=== PATIENT | female | born 1935 | race Caucasian/White ===

== ENCOUNTER → 2016-08-20 | Outpatient (CLI) | payer MEDICARE, BC ==
[~2016-08-20] MED LIST: ASPI81 PO; BIOTCAP PO; CALA240T PO; CALC600T34 PO; GLUCTAB PO; JANU100T PO; METO50TA PO; REPA.5 PO; TAB-TAB PO; ZOCO40TA PO
[2016-08-20 09:58] LABS: ALKALINE PHOSPHATASE 54 U/L (45-117); ALT (GPT) 23 U/L (10-53); ANION GAP 10 MEQ/L (5-15); AST (GOT) 18 U/L (15-37); BICARBONATE 27.7 MEQ/L (21.0-32.0); BLOOD UREA NITROGEN 14 MG/DL (7-18); CHLORIDE 99 MEQ/L (98-107); GLOMERULAR FILTRATION RATE 65 ML/MIN (>89); GLUCOSE,FASTING 154 MG/DL (74-99); HDL CHOLESTEROL 55.2 MG/DL (40.0-60.0); LDL CHOLESTEROL 94 MG/DL (0-99); POTASSIUM 4.4 MEQ/L (3.5-5.1); SODIUM (NA) 137 MEQ/L (136-145); TOTAL BILIRUBIN ADULT 0.9 MG/DL (0.2-1.0)
[2016-08-20 10:22] LABS: MICRO ALBUMIN RANDOM URINE RAW 5.3 MG/L (0.0-30.0)
[2016-08-20 17:35] LABS: HEMOGLOBIN A1a 1.3 %; HEMOGLOBIN A1b 1.1 %; HEMOGLOBIN Ao 82.3 %; HEMOGLOBIN F 1.3 %; HEMOGLOBIN LA1C 2.4 %
== END ==
LOC: PLAB 07:10
PROVIDERS: ATTEND Family Medicine
DX: E11.9 Type 2 diabetes mellitus without complications (principal); I10 Essential (primary) hypertension; R53.81 Other malaise; E78.5 Hyperlipidemia, unspecified
CPT/HCPCS: 36415; 80053; 80061; 82043; 83036; 84443

== ENCOUNTER → 2017-02-17 | Outpatient (CLI) | payer MEDICARE, BC ==
[2017-02-17 09:03] LABS: BASOPHIL # 0.1 TH/MM3 (0-0.2); BASOPHIL % 1.3 % (0.0-2.0); EOSINOPHIL # 0.1 TH/MM3 (0-0.4); EOSINOPHIL % 2.5 % (0.0-4.0); HEMATOCRIT 40.9 % (35.0-46.0); HEMO FLAGS DIFF FINAL; LYMPH % 28.9 % (9.0-44.0); LYMPHOCYTE # 1.5 TH/MM3 (1.0-4.8); MEAN CELL VOLUME 99.4 FL (80.0-100.0); MEAN CORPUSCULAR HEMOGLOBIN 33.6 PG (27.0-34.0); MEAN CORPUSCULAR HGB CONC 33.8 % (32.0-36.0); MONO % 10.4 % (0.0-8.0); NEUT % 56.9 % (16.0-70.0); PLATELET COUNT 192 TH/MM3 (150-450); RED BLOOD COUNT 4.12 MIL/MM3 (4.00-5.30); RED CELL DISTRIBUTION WIDTH 12.8 % (11.6-17.2); WHITE BLOOD COUNT 5.3 TH/MM3 (4.0-11.0)
[2017-02-17 09:37] LABS: ANION GAP 8 MEQ/L (5-15); AST (GOT) 32 U/L (15-37); BICARBONATE 24.8 MEQ/L (21.0-32.0); BLOOD UREA NITROGEN 13 MG/DL (7-18); CHLORIDE 102 MEQ/L (98-107); GLOMERULAR FILTRATION RATE 70 ML/MIN (>89); GLUCOSE,FASTING 190 MG/DL (74-99); POTASSIUM 3.9 MEQ/L (3.5-5.1); SODIUM (NA) 135 MEQ/L (136-145)
[2017-02-17 09:38] LABS: ALT (GPT) 37 U/L (10-53)
[2017-02-17 09:48] LABS: ALKALINE PHOSPHATASE 51 U/L (45-117); HDL CHOLESTEROL 63.6 MG/DL (40.0-60.0); LDL CHOLESTEROL 94 MG/DL (0-99); TOTAL BILIRUBIN ADULT 1.3 MG/DL (0.2-1.0)
[2017-02-17 18:01] LABS: HEMOGLOBIN A1a 1.2 %; HEMOGLOBIN A1b 1.2 %; HEMOGLOBIN Ao 81.8 %; HEMOGLOBIN F 1.4 %; HEMOGLOBIN LA1C 2.5 %; HEMOGLOBIN P3 4.1 %
== END ==
LOC: PLAB 06:47
PROVIDERS: ATTEND Family Medicine
DX: E78.5 Hyperlipidemia, unspecified (principal); E11.9 Type 2 diabetes mellitus without complications; R53.83 Other fatigue
CPT/HCPCS: 36415; 80053; 80061; 83036; 84443; 85025

== ENCOUNTER → 2017-08-22 | Outpatient (CLI) | payer MEDICARE, BC ==
[2017-08-22 10:06] LABS: AUTOMATED NEUTROPHIL # 3.4 TH/MM3 (1.8-7.7); BASOPHIL # 0.1 TH/MM3 (0-0.2); BASOPHIL % 1.1 % (0.0-2.0); EOSINOPHIL # 0.2 TH/MM3 (0-0.4); EOSINOPHIL % 2.9 % (0.0-4.0); HEMATOCRIT 39.8 % (35.0-46.0); HEMOGLOBIN 13.8 GM/DL (11.6-15.3); LYMPH % 28.1 % (9.0-44.0); LYMPHOCYTE # 1.6 TH/MM3 (1.0-4.8); MEAN CELL VOLUME 97.6 FL (80.0-100.0); MEAN CORPUSCULAR HEMOGLOBIN 33.9 PG (27.0-34.0); MEAN CORPUSCULAR HGB CONC 34.7 % (32.0-36.0); MEAN PLATELET VOLUME 8.9 FL (7.0-11.0); MONO % 8.4 % (0.0-8.0); MONOCYTE # 0.5 TH/MM3 (0-0.9); NEUT % 59.5 % (16.0-70.0); PLATELET COUNT 227 TH/MM3 (150-450); RED BLOOD COUNT 4.08 MIL/MM3 (4.00-5.30); WHITE BLOOD COUNT 5.7 TH/MM3 (4.0-11.0)
[2017-08-22 10:27] LABS: ALBUMIN 3.7 GM/DL (3.4-5.0); ALT (GPT) 29 U/L (10-53); AST (GOT) 27 U/L (15-37); BICARBONATE 27.8 MEQ/L (21.0-32.0); BLOOD UREA NITROGEN 13 MG/DL (7-18); CALCIUM 9.2 MG/DL (8.5-10.1); CHLORIDE 102 MEQ/L (98-107); CHOLESTEROL 177 MG/DL (120-200); CREATININE 0.71 MG/DL (0.50-1.00); GLOMERULAR FILTRATION RATE 79 ML/MIN (>89); GLUCOSE,FASTING 195 MG/DL (74-99); SODIUM (NA) 137 MEQ/L (136-145)
[2017-08-22 10:36] LABS: ALKALINE PHOSPHATASE 53 U/L (45-117); CHOLESTEROL/ HDL RATIO 2.96 RATIO; HDL CHOLESTEROL 59.7 MG/DL (40.0-60.0); LDL CHOLESTEROL 98 MG/DL (0-99); TOTAL BILIRUBIN ADULT 0.8 MG/DL (0.2-1.0); TOTAL PROTEIN 7.5 GM/DL (6.4-8.2); TRIGLYCERIDES 98 MG/DL (42-150)
[2017-08-22 17:25] LABS: HEMOGLOBIN A1C 7.8 % (4.3-6.0)
== END ==
LOC: PLAB 06:54
PROVIDERS: ATTEND Family Medicine
DX: E78.5 Hyperlipidemia, unspecified (principal); E11.9 Type 2 diabetes mellitus without complications; R53.83 Other fatigue
CPT/HCPCS: 36415; 80053; 80061; 82043; 83036; 84443; 85025

== ENCOUNTER 2018-07-30 14:01 | Inpatient (IN) ==
[2018-07-30] MEDS ORDERED: Sod Chloride 0.9% Inj 1,000 ML IV.SIG ONE (14:24)
[2018-07-30 14:46] LABS: Clarity,Urine Cloudy (Clear); Color,Urine Yellow (Yellw/Straw); Glucose,Urine (UA) 100 mg/dL (Negative); Leukocyte Esterase,Urine Moderate (Negative); Nitrite,Urine Negative (Negative); PH,Urine 5.5 (5.0-8.5); Specific Gravity,Urine Greater/Equal 1.030 (1.002-1.035); Urobilinogen,Urine 0.2 mg/dL (Less than 2)
[2018-07-30 14:53] LABS: Bilirubin,Urine Negative (Negative); Ictotest,Urine Negative (Negative)
[2018-07-30 14:55] LABS: Squamous Epithelial Cell,Urine 0-5 /hpf (0-5); WBC,Urine Innumerable /hpf (0-5)
[2018-07-30 14:56] LABS: Bacteria,Urine Many /hpf
[2018-07-30 15:20] LABS: Baso # (Auto) 0.1 th/mm3 (0.0-0.2); Baso % (Auto) 0.3 % (0.0-2.0); Eos # (Auto) 0.1 th/mm3 (0.0-0.4); Eos % (Auto) 0.4 % (0.0-4.0); Hematocrit 35.6 % (35.0-46.0); Hemoglobin 12.2 gm/dL (11.6-15.3); Lymph # (Auto) 0.3 th/mm3 (1.0-4.8); Lymph % (Auto) 1.9 % (9.0-44.0); Mean Corpuscular HGB Conc 34.2 % (32.0-36.0); Mean Corpuscular Volume 96.3 fL (80.0-100.0); Mean Platelet Volume 10.3 fL (7.0-11.0); Mono # (Auto) 0.9 th/mm3 (0.0-0.9); Mono % (Auto) 5.1 % (0.0-8.0); Neut # (Auto) 15.5 th/mm3 (1.8-7.7); Neut % (Auto) 92.3 % (16.0-70.0); Platelet Count 96 th/mm3 (150-450); Red Cell Distribution Width 12.6 % (11.6-17.2); White Blood Count 16.9 th/mm3 (4.0-11.0)
[2018-07-30 15:54] LABS: Dohle Bodies Present; Platelet Morphology Normal (Normal); Toxic Granulation 1+
[2018-07-30 16:57] LABS: Chloride 95 meq/L (98-107); Sodium 128 meq/L (136-145)
[2018-07-30 17:01] LABS: Albumin 2.2 g/dL (3.4-5.0); Anion Gap 10 meq/L (5-15); Calcium 9.1 mg/dL (8.5-10.1); Carbon Dioxide 23.4 meq/L (21.0-32.0); Glucose,Random 291 mg/dL (74-106); Lipase 140 U/L (73-393)
[2018-07-30 17:02] LABS: Blood Urea Nitrogen 37 mg/dL (7-18)
[2018-07-30 17:04] LABS: Alanine Aminotransferase 28 U/L (10-53); Aspartate Aminotransferase 29 U/L (15-37); Glomerular Filtration Rate 33 mL/min (>89)
[2018-07-30 17:06] LABS: Total Protein 6.8 g/dL (6.4-8.2)
[2018-07-30 17:07] LABS: Alkaline Phosphatase 72 U/L (45-117)
--- NOTE | 2018-07-30 17:42 | CT ---
EXAM DATE: 07/30/2018 5:30 PM EST AGE/SEX: 83 years / Female INDICATIONS: Low back pain. Nausea, vomiting and diarrhea. CLINICAL DATA: This is the patient's initial encounter. Patient reports that signs and symptoms have been present for 4 - 6 days and indicates a pain score of 9/10. MEDICAL/SURGICAL HISTORY: Diabetes. Hypertension. Cardiovascular disease. Hysterectomy. RADIATION DOSE: 8.29 CTDI (mGy) COMPARISON: No prior exams available for comparison. TECHNIQUE: Multiple contiguous axial images were obtained through the abdomen. Images were obtained using multiple row detector helical technique. Using automated exposure control and adjustment of the mA and/or kV according to patient size, radiation dose was kept as low as reasonably achievable to o btain optimal diagnostic quality images. DICOM format image data is available electronically for rev iew and comparison. FINDINGS: Lower Lungs: Interstitial prominence which appears fibrotic is identified in the right lower lobe. Liver: The liver has a homogeneous density without space-occupying lesion. There is no dilation of th e biliary tree. Postcholecystectomy clips are noted. Spleen: Homogeneous density without enlargement. Pancreas: Unremarkable without mass or calcification. Kidneys: Left kidney is enlarged. There is [id number] hydronephrosis. Multiple small calculi identified within the collecting sys tem. Small calculi. A present in the proximal ureter. There is no significant ureteral distention. A thick walled cyst is identified off the lateral cortical margin of the left kidney. Wall is thicken ed and irregular in appearance. There is evidence of perinephric stranding Right kidney contains small nonobstructing calculi in the lower pole. There is no gross of hydronephr osis. Adrenal Glands: Unremarkable. Aorta: The aorta is heavily calcified. There is no evidence of aneurysmal enlargement. Bowel/Mesentery: Diverticula are noted throughout the descending and sigmoid colon. There are no act luc inflammatory changes. Intestinal gas pattern is otherwise unremarkable. There is no significant i leus. There are no intraperitoneal extraintestinal fluid collections or evidence of free air. Abdominal Wall: Intact. Retroperitoneum: No evidence of adenopathy in the retrocrural, para-aortic, or deep pelvic regions. Bladder: Contours are smooth. Reproductive Organs: Uterus has been surgically removed. No abnormal masses or calcifications seen. Inguinal: The inguinal region is unremarkable without evidence of adenopathy. Bony Structures: Unremarkable. CONCLUSION: 1. Small calculi are identified in the left renal collecting system and proximal ureter. There is mi ld hydronephrosis with perinephric stranding characteristic of obstructive uropathy. 2. Thick walled cyst off the lateral margin of mid left kidney. Cystic malignancy needs to be consid ered. 3. Uncomplicated colonic diverticulosis. 4. Fibrotic lung disease right lower lobe. 5. Status post hysterectomy and cholecystectomy. Electronically signed by: Suman Strauss MD Board Certified Radiologist 07/30/2018 5:40 PM EST
--- NOTE | 2018-07-30 18:07 | ED ---
HPI General Chief complaint: Nausea/Vomiting/Diarrhea Stated complaint: vomiting/diarrhea x 4 days/Hx diabetes/ Time Seen by Provider: 07/30/18 14:19 History of Present Illness HPI narrative: 83-year-old female here for evaluation of left lower back pain. Pain started one year ago, 4/10, left flank, no relation to movement, about 4days ago she started having nausea and vomiting and she is unable to hold any food down. She denies any fever chills or night sweats although she reports some burning urination. She says she did not eat for the last 2 days. No chest pain or shortness of breath. Related Data Home Medications Medication Instructions Recorded Confirmed metformin 500 mg PO BID 07/30/18 07/30/18 metoprolol tartrate 50 mg PO BID 07/30/18 07/30/18 repaglinide 1 mg PO TID 07/30/18 07/30/18 simvastatin 40 mg PO QPM 07/30/18 07/30/18 sitagliptin [Januvia] 100 mg PO DAILY 07/30/18 07/30/18 verapamil 240 mg PO QAM 07/30/18 07/30/18 Allergies Allergy/AdvReac Type Severity Reaction Status Date / Time penicillin G Allergy Severe Hives Verified 07/30/18 14:31 Review of Systems ROS: all other systems reviewed are negative [facility] Medical History Medical History Diabetes (Acute) Elevated cholesterol (Acute) H/O: hysterectomy (Acute) HTN (hypertension) (Acute) Surgical History Surgical History H/O cardiac catheterization (Acute) H/O knee surgery (Acute) Social History Social History Substance History: No History of Abuse Second Hand Smoke Exposure: No Smoking Status: Never smoker How Often Do You Have a Drink Containing Alcohol: Never Recent Travel in [facility] within the Last 8 Weeks: No Immunization History Tetanus Immunization: >5 Years Exam Narrative Exam Narrative: GENERAL: Alert oriented x3 no acute distress. SKIN: Focused skin assessment warm/dry. HEAD: Atraumatic. Normocephalic. EYES: Pupils equal and round. No scleral icterus. No injection or drainage. ENT: No nasal bleeding or discharge. Mucous membranes pink and moist. NECK: Trachea midline. No JVD. CARDIOVASCULAR: Regular rate and rhythm. No murmur appreciated. RESPIRATORY: No accessory muscle use. Clear to auscultation. Breath sounds equal bilaterally. GASTROINTESTINAL: Distended, soft, nonsurgical, non-tender, Hepatic and splenic margins not palpable. MUSCULOSKELETAL: No obvious deformities. No clubbing. No cyanosis. No edema. NEUROLOGICAL: Awake and alert. No obvious cranial nerve deficits. Motor grossly within normal limits. Normal speech. PSYCHIATRIC: Appropriate mood and affect; insight and judgment normal. Course Initial Documented Vital Signs Temperature 98.5 F 07/30/18 14:03 Pulse Rate 97 H 07/30/18 14:03 Respiratory Rate 18 07/30/18 14:03 Blood Pressure 102/55 L 07/30/18 14:03 Pulse Oximetry 97 07/30/18 14:03 Last Documented Vital Signs Temperature 98.3 F 08/01/18 03:30 Pulse Rate 135 H 08/01/18 03:30 Respiratory Rate 14 08/01/18 03:30 Blood Pressure 97/57 L 08/01/18 03:30 Pulse Oximetry 97 08/01/18 03:30 Medical Decision Making MDM Narrative Medical decision making narrative: 83 female here for left lower back pain. When she arrived at the ER she was tachycardic with heart rate at mid 100s, hypotensive, labs concerning for leukocytosis of 16.9,, her creatinine almost doubled since last, ER visit urinalysis positive for UTI, CAT scan shows multiple calculi with hydronephrosis and possibly malignant cystic mass. 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 Given patient age and comorbidities (diabetes and hypertension) and inability to hold any p.o. intake she will need to be admitted for further evaluation. Blood cultures drawn, Bolus of 2L of IV fluids were given and Rocephin was given initially since she has severe penicillin allergy, but given her clinical picture we may need to switch to a broader spectrum antibiotic. spoke with urologist wine consultant Dr. Sun and he [place] [facility] [place] for the left hydronephrosis. Medical Screen Exam Complete: Yes Emergency Medical Condition: Yes Lab Data Result diagrams: 08/01/18 06:37 07/30/18 16:40 Lab Results 07/30/18 07/30/18 07/30/18 Range/Units 14:30 14:45 14:45 CBC w Diff Slide review pending WBC 16.9 H (4.0-11.0) th/mm3 RBC 3.70 L (4.00-5.30) mil/mm3 Hgb 12.2 (11.6-15.3) gm/dL Hct 35.6 (35.0-46.0) % MCV 96.3 (80.0-100.0) fL MCH 33.0 (27.0-34.0) pg MCHC 34.2 (32.0-36.0) % RDW 12.6 (11.6-17.2) % Plt Count 96 L (150-450) th/mm3 MPV 10.3 (7.0-11.0) fL Prelim Diff (Auto) Neut % (Auto) 92.3 H (16.0-70.0) % Lymph % (Auto) 1.9 L (9.0-44.0) % Walker % (Auto) 5.1 (0.0-8.0) % Eos % (Auto) 0.4 (0.0-4.0) % Baso % (Auto) 0.3 (0.0-2.0) % Neut # (Auto) 15.5 H (1.8-7.7) th/mm3 Lymph # (Auto) 0.3 L (1.0-4.8) th/mm3 Walker # (Auto) 0.9 (0.0-0.9) th/mm3 Eos # (Auto) 0.1 (0.0-0.4) th/mm3 Baso # (Auto) 0.1 (0.0-0.2) th/mm3 WBC Differential . Diff Scan Auto diff confirmed Differential Comment . Toxic Granulation 1+ H (None) Dohle Bodies Present H (None) Platelet Estimate Low L (Normal) Platelet Morphology Normal (Normal) Sodium (136-145) meq/L Potassium (3.5-5.1) meq/L Chloride (98-107) meq/L Carbon Dioxide (21.0-32.0) meq/L Anion Gap (5-15) meq/L BUN (7-18) mg/dL Creatinine (0.50-1.00) mg/dL Estimated GFR (>89) mL/min POC Glucose (68-110) mg/dl Random Glucose (74-106) mg/dL Lactic Acid 1.9 (0.4-2.0) mmol/L Calcium (8.5-10.1) mg/dL Total Bilirubin (0.2-1.0) mg/dL AST (15-37) U/L ALT (10-53) U/L Alkaline Phosphatase (45-117) U/L Total Protein (6.4-8.2) g/dL Albumin (3.4-5.0) g/dL Lipase (73-393) U/L Urine Color Yellow (Yellw/Straw) Urine Clarity Cloudy H (Clear) Urine pH 5.5 (5.0-8.5) Ur Specific [place] Greater/equal 1.030 (1.002-1.035) Urine Protein 100 H (Neg-Trace) mg/dL Urine Glucose (UA) 100 H (Negative) mg/dL Urine Ketones 15 H (Negative) mg/dL Urine Occult Blood Large H (Negative) Urine Nitrate Negative (Negative) Urine Bilirubin Negative (Negative) Urine Ictotest Negative (Negative) Urine Urobilinogen 0.2 (Less than 2) mg/dL Ur Leukocyte Esterase Moderate H (Negative) Urine RBC 15-50 H (0-3) /hpf Urine WBC Innumerable H (0-5) /hpf Urine WBC Clumps Many H (None) Ur Squamous Epith Cells 0-5 (0-5) /hpf Urine Bacteria Many H (None) /hpf Micro UA Comment Culture indicated Ur Microscopic Review Microscopic reviewed Urine Culture Comments Culture indicated 07/30/18 07/30/18 07/31/18 Range/Units 16:40 22:37 06:07 CBC w Diff WBC (4.0-11.0) th/mm3 RBC (4.00-5.30) mil/mm3 Hgb (11.6-15.3) gm/dL Hct (35.0-46.0) % MCV (80.0-100.0) fL MCH (27.0-34.0) pg MCHC (32.0-36.0) % RDW (11.6-17.2) % Plt Count (150-450) th/mm3 MPV (7.0-11.0) fL Prelim Diff (Auto) Neut % (Auto) (16.0-70.0) % Lymph % (Auto) (9.0-44.0) % Walker % (Auto) (0.0-8.0) % Eos % (Auto) (0.0-4.0) % Baso % (Auto) (0.0-2.0) % Neut # (Auto) (1.8-7.7) th/mm3 Lymph # (Auto) (1.0-4.8) th/mm3 Walker # (Auto) (0.0-0.9) th/mm3 Eos # (Auto) (0.0-0.4) th/mm3 Baso # (Auto) (0.0-0.2) th/mm3 WBC Differential Diff Scan Differential Comment Toxic Granulation (None) Dohle Bodies (None) Platelet Estimate (Normal) Platelet Morphology (Normal) Sodium 128 L (136-145) meq/L Potassium 4.0 (3.5-5.1) meq/L Chloride 95 L (98-107) meq/L Carbon Dioxide 23.4 (21.0-32.0) meq/L Anion Gap 10 (5-15) meq/L BUN 37 H (7-18) mg/dL Creatinine 1.50 H (0.50-1.00) mg/dL Estimated GFR 33 L (>89) mL/min POC Glucose 239 H 234 H (68-110) mg/dl Random Glucose 291 H (74-106) mg/dL Lactic Acid (0.4-2.0) mmol/L Calcium 9.1 (8.5-10.1) mg/dL Total Bilirubin 1.2 H (0.2-1.0) mg/dL AST 29 (15-37) U/L ALT 28 (10-53) U/L Alkaline Phosphatase 72 (45-117) U/L Total Protein 6.8 (6.4-8.2) g/dL Albumin 2.2 L (3.4-5.0) g/dL Lipase 140 (73-393) U/L Urine Color (Yellw/Straw) Urine Clarity (Clear) Urine pH (5.0-8.5) Ur Specific [place] (1.002-1.035) Urine Protein (Neg-Trace) mg/dL Urine Glucose (UA) (Negative) mg/dL Urine Ketones (Negative) mg/dL Urine Occult Blood (Negative) Urine Nitrate (Negative) Urine Bilirubin (Negative) Urine Ictotest (Negative) Urine Urobilinogen (Less than 2) mg/dL Ur Leukocyte Esterase (Negative) Urine RBC (0-3) /hpf Urine WBC (0-5) /hpf Urine WBC Clumps (None) Ur Squamous Epith Cells (0-5) /hpf Urine Bacteria (None) /hpf Micro UA Comment Ur Microscopic Review Urine Culture Comments 07/31/18 07/31/18 07/31/18 Range/Units 06:21 07:43 09:20 CBC w Diff WBC (4.0-11.0) th/mm3 RBC (4.00-5.30) mil/mm3 Hgb (11.6-15.3) gm/dL Hct (35.0-46.0) % MCV (80.0-100.0) fL MCH (27.0-34.0) pg MCHC (32.0-36.0) % RDW (11.6-17.2) % Plt Count (150-450) th/mm3 MPV (7.0-11.0) fL Prelim Diff (Auto) Neut % (Auto) (16.0-70.0) % Lymph % (Auto) (9.0-44.0) % Walker % (Auto) (0.0-8.0) % Eos % (Auto) (0.0-4.0) % Baso % (Auto) (0.0-2.0) % Neut # (Auto) (1.8-7.7) th/mm3 Lymph # (Auto) (1.0-4.8) th/mm3 Walker # (Auto) (0.0-0.9) th/mm3 Eos # (Auto) (0.0-0.4) th/mm3 Baso # (Auto) (0.0-0.2) th/mm3 WBC Differential Diff Scan Differential Comment Toxic Granulation (None) Dohle Bodies (None) Platelet Estimate (Normal) Platelet Morphology (Normal) Sodium (136-145) meq/L Potassium (3.5-5.1) meq/L Chloride (98-107) meq/L Carbon Dioxide (21.0-32.0) meq/L Anion Gap (5-15) meq/L BUN (7-18) mg/dL Creatinine (0.50-1.00) mg/dL Estimated GFR (>89) mL/min POC Glucose 250 H (68-110) mg/dl Random Glucose (74-106) mg/dL Lactic Acid 2.7 H 1.6 (0.4-2.0) mmol/L Calcium (8.5-10.1) mg/dL Total Bilirubin (0.2-1.0) mg/dL AST (15-37) U/L ALT (10-53) U/L Alkaline Phosphatase (45-117) U/L Total Protein (6.4-8.2) g/dL Albumin (3.4-5.0) g/dL Lipase (73-393) U/L Urine Color (Yellw/Straw) Urine Clarity (Clear) Urine pH (5.0-8.5) Ur Specific [place] (1.002-1.035) Urine Protein (Neg-Trace) mg/dL Urine Glucose (UA) (Negative) mg/dL Urine Ketones (Negative) mg/dL Urine Occult Blood (Negative) Urine Nitrate (Negative) Urine Bilirubin (Negative) Urine Ictotest (Negative) Urine Urobilinogen (Less than 2) mg/dL Ur Leukocyte Esterase (Negative) Urine RBC (0-3) /hpf Urine WBC (0-5) /hpf Urine WBC Clumps (None) Ur Squamous Epith Cells (0-5) /hpf Urine Bacteria (None) /hpf Micro UA Comment Ur Microscopic Review Urine Culture Comments 07/31/18 07/31/18 07/31/18 Range/Units 12:00 17:48 21:53 CBC w Diff WBC (4.0-11.0) th/mm3 RBC (4.00-5.30) mil/mm3 Hgb (11.6-15.3) gm/dL Hct (35.0-46.0) % MCV (80.0-100.0) fL MCH (27.0-34.0) pg MCHC (32.0-36.0) % RDW (11.6-17.2) % Plt Count (150-450) th/mm3 MPV (7.0-11.0) fL Prelim Diff (Auto) Neut % (Auto) (16.0-70.0) % Lymph % (Auto) (9.0-44.0) % Walker % (Auto) (0.0-8.0) % Eos % (Auto) (0.0-4.0) % Baso % (Auto) (0.0-2.0) % Neut # (Auto) (1.8-7.7) th/mm3 Lymph # (Auto) (1.0-4.8) th/mm3 Walker # (Auto) (0.0-0.9) th/mm3 Eos # (Auto) (0.0-0.4) th/mm3 Baso # (Auto) (0.0-0.2) th/mm3 WBC Differential Diff Scan Differential Comment Toxic Granulation (None) Dohle Bodies (None) Platelet Estimate (Normal) Platelet Morphology (Normal) Sodium (136-145) meq/L Potassium (3.5-5.1) meq/L Chloride (98-107) meq/L Carbon Dioxide (21.0-32.0) meq/L Anion Gap (5-15) meq/L BUN (7-18) mg/dL Creatinine (0.50-1.00) mg/dL Estimated GFR (>89) mL/min POC Glucose 277 H 247 H 168 H (68-110) mg/dl Random Glucose (74-106) mg/dL Lactic Acid (0.4-2.0) mmol/L Calcium (8.5-10.1) mg/dL Total Bilirubin (0.2-1.0) mg/dL AST (15-37) U/L ALT (10-53) U/L Alkaline Phosphatase (45-117) U/L Total Protein (6.4-8.2) g/dL Albumin (3.4-5.0) g/dL Lipase (73-393) U/L Urine Color (Yellw/Straw) Urine Clarity (Clear) Urine pH (5.0-8.5) Ur Specific [place] (1.002-1.035) Urine Protein (Neg-Trace) mg/dL Urine Glucose (UA) (Negative) mg/dL Urine Ketones (Negative) mg/dL Urine Occult Blood (Negative) Urine Nitrate (Negative) Urine Bilirubin (Negative) Urine Ictotest (Negative) Urine Urobilinogen (Less than 2) mg/dL Ur Leukocyte Esterase (Negative) Urine RBC (0-3) /hpf Urine WBC (0-5) /hpf Urine WBC Clumps (None) Ur Squamous Epith Cells (0-5) /hpf Urine Bacteria (None) /hpf Micro UA Comment Ur Microscopic Review Urine Culture Comments 08/01/18 Range/Units 06:37 CBC w Diff WBC 17.2 H (4.0-11.0) th/mm3 RBC 3.29 L (4.00-5.30) mil/mm3 Hgb 10.9 L (11.6-15.3) gm/dL Hct 32.6 L (35.0-46.0) % MCV 99.1 (80.0-100.0) fL MCH 33.1 (27.0-34.0) pg MCHC 33.4 (32.0-36.0) % RDW 13.9 (11.6-17.2) % Plt Count 96 L (150-450) th/mm3 MPV 10.6 (7.0-11.0) fL Prelim Diff (Auto) Slide review pending Neut % (Auto) 92.1 H (16.0-70.0) % Lymph % (Auto) 2.2 L (9.0-44.0) % Walker % (Auto) 3.8 (0.0-8.0) % Eos % (Auto) 0.8 (0.0-4.0) % Baso % (Auto) 1.1 (0.0-2.0) % Neut # (Auto) 15.8 H (1.8-7.7) th/mm3 Lymph # (Auto) 0.4 L (1.0-4.8) th/mm3 Walker # (Auto) 0.6 (0.0-0.9) th/mm3 Eos # (Auto) 0.1 (0.0-0.4) th/mm3 Baso # (Auto) 0.2 (0.0-0.2) th/mm3 WBC Differential Diff Scan Differential Comment . Toxic Granulation (None) Dohle Bodies (None) Platelet Estimate (Normal) Platelet Morphology (Normal) Sodium (136-145) meq/L Potassium (3.5-5.1) meq/L Chloride (98-107) meq/L Carbon Dioxide (21.0-32.0) meq/L Anion Gap (5-15) meq/L BUN (7-18) mg/dL Creatinine (0.50-1.00) mg/dL Estimated GFR (>89) mL/min POC Glucose (68-110) mg/dl Random Glucose (74-106) mg/dL Lactic Acid (0.4-2.0) mmol/L Calcium (8.5-10.1) mg/dL Total Bilirubin (0.2-1.0) mg/dL AST (15-37) U/L ALT (10-53) U/L Alkaline Phosphatase (45-117) U/L Total Protein (6.4-8.2) g/dL Albumin (3.4-5.0) g/dL Lipase (73-393) U/L Urine Color (Yellw/Straw) Urine Clarity (Clear) Urine pH (5.0-8.5) Ur Specific [place] (1.002-1.035) Urine Protein (Neg-Trace) mg/dL Urine Glucose (UA) (Negative) mg/dL Urine Ketones (Negative) mg/dL Urine Occult Blood (Negative) Urine Nitrate (Negative) Urine Bilirubin (Negative) Urine Ictotest (Negative) Urine Urobilinogen (Less than 2) mg/dL Ur Leukocyte Esterase (Negative) Urine RBC (0-3) /hpf Urine WBC (0-5) /hpf Urine WBC Clumps (None) Ur Squamous Epith Cells (0-5) /hpf Urine Bacteria (None) /hpf Micro UA Comment Ur Microscopic Review Urine Culture Comments Imaging Data Radiologist's impression: Abdomen/Pelvis CT 07/30/18 17:13 CONCLUSION: 1. Small calculi are identified in the left renal collecting system and proximal ureter. There is mild hydronephrosis with perinephric stranding characteristic of obstructive uropathy. 2. Thick walled cyst off the lateral margin of mid left kidney. Cystic malignancy needs to be considered. 3. Uncomplicated colonic diverticulosis. 4. Fibrotic lung disease right lower lobe. 5. Status post hysterectomy and cholecystectomy. Abdomen/Bladder Ultrasound 07/30/18 18:40 CONCLUSION: 1. Mild left-sided hydronephrosis. Calyceal calculi noted on CT exam are not demonstrated on ultrasound. 2. 3.9 cm primarily hypoechoic exophytic cystic lesion arising from the mid left kidney. This corresponds to the thick walled cystic lesion on CT exam with adjacent stranding. There is no definite nodular component or evidence for vascularity. Differential considerations include hemorrhagic cyst versus secondarily infected cyst although cystic neoplasm is not entirely excluded by ultrasound. Multiphasic renal mass MRI or CT examination is recommended once patient's acute left-sided obstructive uropathy is resolved. Abdomen X-Ray 07/31/18 00:00 CONCLUSION: Left double pigtail ureteral stent catheter. Discharge Plan Discharge Disposition Patient Disposition: ED Admit(ED Internal Use Only) Discharge Order Discharge Orders: ED Use Only Admit Order (Routine); Ordered 07/30/18 Ordered By: Carlos Gamino Physicians Team ED Provider: Carlos Gamino Primary Care Provider: Mara Martell Attending Provider: Irma Grimes Other Providers: Zeferino Arias ; Brady Hawthorne ; Dany Cardenas Status ED Status: Left Department Discharge Information Discharge Date/Time: 07/30/18 22:00
[2018-07-30] MEDS ORDERED: Sod Chloride 0.9% Inj 1,000 ML IV.SIG STA (18:36)
--- NOTE | 2018-07-30 19:24 | US ---
EXAM DATE: 07/30/2018 7:14 PM EST AGE/SEX: 83 years / Female INDICATIONS: Flank pain and prior abnormal imaging. CLINICAL DATA: This is the patient's initial encounter. Patient reports that signs and symptoms have been present for 4 - 6 days and indicates a pain score of 7/10. MEDICAL/SURGICAL HISTORY: Diabetes. Hypercholesterolemia. Hypertension. Hysterectomy. Cardiac catheterization. Knee surgery. COMPARISON: [facility], CT ABDOMEN & PELVIS W/O CONTRAST, 07/30/2018. . MEASUREMENTS: Right Kidney:__10.5 x 5.6 x 4.7 cm Left Kidney:__12.3 x 6.4 x 5.8 cm FINDINGS: Right Kidney: Normal echogenicity and cortical thickness. No mass or hydronephrosis. Left Kidney: Exophytic hypoechoic lesion arising from the midpole measuring 3.9 x 3.3 x 3.2 cm. Mild left-sided hydronephrosis. Left renal calculi not well demonstrated on ultrasound. Bladder: Within normal limits given the degree of distension. Other: None. CONCLUSION: 1. Mild left-sided hydronephrosis. Calyceal calculi noted on CT exam are not demonstrated on ultraso und. 2. 3.9 cm primarily hypoechoic exophytic cystic lesion arising from the mid left kidney. This corres ponds to the thick walled cystic lesion on CT exam with adjacent stranding. There is no definite nodu lar component or evidence for vascularity. Differential considerations include hemorrhagic cyst versu s secondarily infected cyst although cystic neoplasm is not entirely excluded by ultrasound. Multipha sic renal mass MRI or CT examination is recommended once patient's acute left-sided obstructive uropa thy is resolved. Electronically signed by: Brandon Gutierrez MD Board Certified Radiologist 07/30/2018 7:23 PM EST
[2018-07-31] MEDS ORDERED: Metoprolol Inj 5 MG/5 ML Vial IV.PUSH ONE (06:29)
--- NOTE | 2018-07-31 06:30 | P.PNADD ---
Addendum to Inpatient Note Reason for Addendum: Additional Documentation Additional information: [facility] called at 6am for 83-year-old female transfer from [place] for UTI. PMH: diabetes, cardiac cath, and HTN. Home medications include sitagliptin, verapamil, metoprolol. [facility] was called for fever and increased heart rate. According to nursing staff. BP was 163/11 and HR 176. Temperature 100.6. Bedside glucose 234. Patient stating 100% on 3 L of NC. Patient remained alert and oriented x3. According to staff, patient had not yet been seen by hospitalist and no orders had been entered. [address] labs included a UA that was positive for leuk esterase and negative for nitrates. WBC 16.9. Lactic acid 1.9. Cr 1.5. Na 128. At [address] patient received NS bolus 1 L x2 and [address] showed small calculi in L collecting system renal and proximal ureter with hydronephrosis. Cyst found of mid L kidney possible malignancy. O: VS BP 120/59 repeat 144/66 HR 160 temp 102.2 General: Patient alert and oriented x3 resting in bed with some discomfort complaining of back pain. SKIN: Warm and dry. HEAD: Normocephalic. EYES: No scleral icterus. No injection or drainage. NECK: Supple, trachea midline. No JVD or lymphadenopathy. CARDIOVASCULAR: elevated rate and irregular rhythm without murmurs, gallops, or rubs. RESPIRATORY: Breath sounds equal bilaterally. No accessory muscle use. GASTROINTESTINAL: Abdomen soft, non-tender, nondistended. MUSCULOSKELETAL: No cyanosis, or edema. BACK: Nontender without obvious deformity. No CVA tenderness. A/P: 83 year old female PMH HTN and diabetes admitted for UTI and renal cyst. aHli called for elevated HR and temperature. Most likely sepsis due to UTI. -labs ordered: CBC, CMP, lactic acid -EKG: afib with RVR rate 157 -1 L NS bolus then maintenance fluids -Lopressor 5 mg -Tylenol -Dr. Caputo Discussed case with hospitalist service
[2018-07-31] MEDS: Acetaminophen 325 MG Tablet PO PRN (06:43)
[2018-07-31] MEDS ORDERED: Acetaminophen 325 MG Tablet PO PRN (07:02)
[2018-07-31] MEDS ORDERED: Sod Chloride 0.9% Inj 1,000 ML IV.SIG SCH (07:14)
[2018-07-31] MEDS ORDERED: Dextrose 50% in Water 50 ML Vial IV.PUSH PRN (07:15)
[2018-07-31] MEDS: Insulin NovoLOG Aspart Correctional Sugar Inj SQ SCH ×4 (09:54→21:54)
[2018-07-31] MEDS: Sod Chloride 0.9% Inj 1,000 ML IV.CONT SCH ×3 (10:08→23:16)
--- NOTE | 2018-07-31 11:46 | P.HPIM ---
History of Present Illness Primary Care Physician: Mara Martell MD Chief Complaint: weakness History of Present Illness: 83-year-old female states that she developed nausea and vomiting on Friday, just did not feel well, then developed diarrhea and progressive weakness to where she was unable to walk and very trembly she developed some back pain across her lower back, the vomiting had resolved but she just was unable to tolerate, she denies fever, shortness of breath cough abdominal pain, dysuria or hematuria. She was seen in the emergency room at [facility] and found to be mildly tachycardic and mildly hypotensive, with evidence of urinary tract infection and abdominal CT findings of multiple calculi, hydronephrosis of the left kidney with perinephric stranding and possible malignant versus infected cystic mass of the left kidney. [place] ER physician discussed case with urology and decision was to transfer patient to [facility] for further evaluation and management. Patient was transferred and developed fever and tachycardia, continue on IV antibiotics and bolused with IV fluids. PMhx: htn, niddm, tachycardia, renal lithiasis 3 yr ago, dyslipidemia PSXhx: hysterectomy, cataracts, bilateral knee replacement,choly, SOChx:denies tobacco, denies etoh, lives at home alone, independent at baseline FAMhx:denies premature cad, cva, ca Inpatient Certification Inpatient Certification: I certify that the inpatient services were ordered in accordance with Medicare regulations governing the order. This includes certification that hospital inpatient services are reasonable and necessary and in the case of services not specified as inpatient-only under 42 CFR 419.22(n), that they are appropriately provided as inpatient services in accordance to with the 2-midnight benchmark under 43 CFR 412.3(e) Estimated Total Length of Stay (Days): 3 Plans for Post Hospital Care: Home Review of Systems Review of Systems: all other systems reviewed are negative [facility] Medical History Medical History Diabetes (Acute) Elevated cholesterol (Acute) H/O: hysterectomy (Acute) HTN (hypertension) (Acute) Surgical History Surgical History H/O cardiac catheterization (Acute) H/O knee surgery (Acute) Social History Social History Substance History: No History of Abuse Second Hand Smoke Exposure: No Smoking Status: Never smoker How Often Do You Have a Drink Containing Alcohol: Never Recent Travel in [facility] within the Last 8 Weeks: No Immunization History Tetanus Immunization: >5 Years Hx Influenza Vaccine This Season: Yes Medications and Allergies Allergies Allergy/AdvReac Type Severity Reaction Status Date / Time penicillin G Allergy Severe Hives Verified 07/30/18 14:31 Home Medications Medication Instructions Recorded Confirmed Type metformin 500 mg PO BID 07/30/18 07/30/18 History metoprolol tartrate 50 mg PO BID 07/30/18 07/30/18 History repaglinide 1 mg PO TID 07/30/18 07/30/18 History simvastatin 40 mg PO QPM 07/30/18 07/30/18 History sitagliptin [Januvia] 100 mg PO DAILY 07/30/18 07/30/18 History verapamil 240 mg PO QAM 07/30/18 07/30/18 History Active Medications: Active Medications Acetaminophen (Tylenol) 650 mg PO Q4H PRN PRN Reason: fever/pain Last Admin: 07/31/18 06:43 Dose: 650 mg Dextrose (D50w Vial) 50 ml IV.PUSH UNSCH PRN PRN Reason: PER HYPOGLYCEMIA PROTOCOL Glucagon (Glucagon Inj) 1 mg OTHER PRN PRN PRN Reason: for Hypoglycemia Protocol Sodium Chloride (Ns Inj) 1,000 mls @ 100 mls/hr IV.CONT .Q10H [facility] Last Admin: 07/31/18 10:08 Dose: Not Given Ceftriaxone Sodium 1,000 mg/ (Sodium Chloride) 100 mls @ 200 mls/hr IV.SIG Q24H [facility] Last Infusion: 07/31/18 08:16 Dose: Infused Insulin Aspart (Novolog Insulin Correctional Sugar Inj) 0 unit SQ ACHS [facility]; Protocol Last Admin: 07/31/18 09:54 Dose: 7 unit Ondansetron HCl (Zofran Inj) 4 mg IV.PUSH Q6H PRN PRN Reason: NAUSEA OR VOMITING Sodium Chloride (Ns Flush) 2 ml IV.FLUSH BID [facility] Last Admin: 07/31/18 09:55 Dose: Not Given Sodium Chloride (Ns Flush) 2 ml IV.FLUSH PRN PRN PRN Reason: FLUSH AFTER USING IV ACCESS Physical Exam Vital signs: Last Vital Signs Temp 97.8 F 07/31/18 07:40 Pulse 133 H 07/31/18 07:40 Resp 18 07/31/18 07:40 BP 99/49 L 07/31/18 07:40 Pulse Ox 96 07/31/18 07:40 Intake & Output 07/29/18 07/30/18 07/31/18 08/01/18 06:59 06:59 06:59 06:59 Intake Total 2099 100 / 100 Balance 2099 100 / 100 Weight 60.45 kg GEN well-developed well-nourished well-developed 83-year-old female awake alert oriented to person time and place, pleasant in no acute distress, pallor, appears frail, hoarseness voice quality HEENT normocephalic atraumatic, Pupils equal reactive, surgical, sclerae anicteric, extraocular motion intact, mucosa is dry, posterior pharynx no exudate, no gum lip lesions noted NECK supple no JVD trachea midline thyroid smooth not enlarged ANT CHEST WALL without mass or tenderness to palpation HEART S1-S2 regular with ectopy, without significant murmur gallops or clicks LUNGS clear to auscultation left without wheeze rales or rhonchi, fine crackles right base , full symmetric expansion BACK exam is no CVA tenderness or mass ABDOMEN soft nondistended positive bowel sounds no guarding rebound rigidity LYMPH NODES no cervical, axillary or inguinal adenopathy noted EXTREMITIES no clubbing cyanosis or significant edema, peripheral pulses palpable +2 NEUROLOGIC cranial nerves II through XII appear grossly intact, strength is 5 out of 5 symmetrical no clonus or rigidity SKIN warm and dry with decreased turgor, no other rash or sores noted Results Labs CBC & Chem 7: 07/30/18 14:45 07/30/18 16:40 Imaging Impressions Abdomen/Pelvis CT 07/30/18 17:13 CONCLUSION: 1. Small calculi are identified in the left renal collecting system and proximal ureter. There is mild hydronephrosis with perinephric stranding characteristic of obstructive uropathy. 2. Thick walled cyst off the lateral margin of mid left kidney. Cystic malignancy needs to be considered. 3. Uncomplicated colonic diverticulosis. 4. Fibrotic lung disease right lower lobe. 5. Status post hysterectomy and cholecystectomy. Abdomen/Bladder Ultrasound 07/30/18 18:40 CONCLUSION: 1. Mild left-sided hydronephrosis. Calyceal calculi noted on CT exam are not demonstrated on ultrasound. 2. 3.9 cm primarily hypoechoic exophytic cystic lesion arising from the mid left kidney. This corresponds to the thick walled cystic lesion on CT exam with adjacent stranding. There is no definite nodular component or evidence for vascularity. Differential considerations include hemorrhagic cyst versus secondarily infected cyst although cystic neoplasm is not entirely excluded by ultrasound. Multiphasic renal mass MRI or CT examination is recommended once patient's acute left-sided obstructive uropathy is resolved. Caprini VTE Risk Assessment Caprini VTE Risk Assessment: Moderate/High Risk (score >= 2) Caprini Risk Assessment Model: Point Value = 1 Point Value = 2 Point Value = 3 Point Value = 5 Age 41-60 Minor surgery BMI > 25 kg/m2 Swollen legs Varicose veins or History of unexplained or recurrent spontaneous Oral contraceptives or hormone replacement Sepsis (< 1 month) Serious lung disease, including pneumonia (< 1 month) Abnormal pulmonary function Acute myocardial infarction Congestive heart failure (< 1 month) History of inflammatory bowel disease Medical patient at bed rest Age 61-74 Arthroscopic surgery Major open surgery (> 45 min) Laparoscopic surgery (> 45 min) Malignancy Confined to bed (> 72 hours) Immobilizing plaster cast Central venous access Age >= 75 History of VTE Family history of VTE Factor V Leiden Prothrombin [id number] Lupus anticoagulant Anticardiolipin antibodies Elevated serum homocysteine Heparin-induced thrombocytopenia Other congenital or acquired thrombophilia Stroke (< 1 month) Elective arthroplasty Hip, pelvis, or leg fracture Acute spinal cord injury (< 1 month) Prophylaxis Regimen: Total Risk Factor Score Risk Level Prophylaxis Regimen 0-1 Low Early ambulation 2 Moderate Order ONE of the following: *Sequential Compression Device (SCD) *Heparin 5000 units SQ BID 3-4 Higher Order ONE of the following medications: *Heparin 5000 units SQ TID *Enoxaparin/Lovenox 40 mg SQ daily (WT < 150 kg, CrCl > 30 mL/min) *Enoxaparin/Lovenox 30 mg SQ daily (WT < 150 kg, CrCl > 10-29 mL/min) *Enoxaparin/Lovenox 30 mg SQ BID (WT < 150 kg, CrCl > 30 mL/min) AND/OR *Sequential Compression Device (SCD) 5 or more Highest Order ONE of the following medications: *Heparin 5000 units SQ TID (Preferred with Epidurals) *Enoxaparin/Lovenox 40 mg SQ daily (WT < 150 kg, CrCl > 30 mL/min) *Enoxaparin/Lovenox 30 mg SQ daily (WT < 150 kg, CrCl > 10-29 mL/min) *Enoxaparin/Lovenox 30 mg SQ BID (WT < 150 kg, CrCl > 30 mL/min) AND *Sequential Compression Device (SCD) Assessment and Plan Plan SEPSIS due to complicated UTI/pyelonephritis L URETERAL lithiasis causing OBSTRUCTIVE HYDRONEPHROSIS - L CYSTIC exophytic RENAL MASS - due to infection/pyelo NIDDM, uncontrolled, continue insulin sliding scale TACHYCARDIA - reactive due to above, but wd from her chronic home negative chronotropic's, verapamil and metoprolol, patient reports history of "tachycardia" suspect history of SVT, continue telemetry, continue IV fluid resuscitation, resume metoprolol and verapamil if her blood pressures will tolerate, HTN hx THROMBOCYTOPENIAlikely related to sepsis and infection, no history of this, continue to monitor RONEY w dehydration, hyponatremia -cont ivf dvt prophylaxis - heparin sq disposition - home once stable pending clinical course H&P: Quality VTE Deep Vein Thrombosis/Pulmonary Embolism Present on Admission: No
--- NOTE | 2018-07-31 12:41 | MB ---
cc: Zeferino Arias MD DATE: 07/31/2018 REQUESTING PHYSICIAN: Shelley Cummins MD. REASON: Pyelonephritis, sepsis. HISTORY OF PRESENT ILLNESS: This is an 83-year-old white female who presented to the emergency department on 07/30/2018 with nausea, vomiting and diarrhea. The patient reported that 4 days ago she developed sudden vomiting and also noted that she was having urinary hesitancy and marked decreased appetite. She denied chills or fever. She also developed pain across the lower back. She presented to the emergency department for evaluation. Temperature in the emergency department was 98.5, and later bertrand to 102.2 this morning. Blood cultures were taken and also urine culture was taken. Urinalysis revealed innumerable white cells. Consultation is requested for evaluation and management. The patient had a bladder ultrasound, which showed mild left-sided hydronephrosis and a 3.9 cm primarily hypoechoic exophytic cystic lesion arising from the mid left kidney. Also, there was adjacent stranding noted. White blood cell count elevated at 16.9. The patient also has acute kidney disease and her estimated GFR is 33. The patient denies other symptoms. PAST MEDICAL HISTORY: Hypercholesterolemia, diabetes mellitus, history of cholecystectomy, history of hysterectomy, history of bilateral knee surgery. ALLERGIES: PENICILLIN. MEDICATIONS: 1. Ceftriaxone. 2. Tylenol. SOCIAL HISTORY: No tobacco, no alcohol, no illicit drugs. The patient never used tobacco or alcohol. FAMILY HISTORY: Noncontributory. REVIEW OF SYSTEMS: All systems have been reviewed and negative except for features mentioned in the history of present illness. PHYSICAL EXAMINATION: GENERAL: Slender female who is in no acute distress. She is awake and alert and oriented. VITAL SIGNS: Temperature 97.8, BP 99/49, respirations 18, heart rate 133. HEENT: Head atraumatic. Extraocular movements are grossly intact. Pupils reactive to light. No icterus. Oropharynx: Mucosa slightly dry. NECK: Supple without adenopathy or swelling. LUNGS: Clear, decreased breath sounds. HEART: Irregular rate and rhythm without murmurs, rubs or gallops. ABDOMEN: Bowel sounds present. Soft, no tenderness appreciated. ABDOMEN: Mildly distended. RECTAL: Not performed. EXTREMITIES: No clubbing, cyanosis or edema. SKIN: No rash. The skin appears pale. NEUROLOGIC: No gross focal findings. PSYCHIATRIC: The patient is pleasant, calm and cooperative. LABORATORY DATA: WBC 16.9, platelets 96,000, hemoglobin 12.2. Sodium 128, creatinine 1.5, estimated GFR 33. IMPRESSION: 1. Pyelonephritis. 2. Probable sepsis. 3. Urinary tract infection. 4. Acute kidney disease, stage III. 5. Fever and leukocytosis secondary to infection. RECOMMENDATIONS: 1. Continue ceftriaxone. 2. Monitor the temperature. 3. Monitor white blood cell count. 4. Monitor urine culture and blood culture. The temperature is now lower and it is likely that the bacteria causing infection is sensitive to ceftriaxone. Thank you for this consultation. We will monitor the patient's progress with you. MD JHON Dc/sb , 11:42 AM , 11:54 AM
[2018-07-31] MEDS ORDERED: Metoprolol Tartrate 25 MG Tablet PO ONE (16:30)
--- NOTE | 2018-07-31 17:54 | ECG ---
Date Performed: 07/31/2018 Time Performed: 06:20:04 PTAGE: 83 years EKG: Atrial fibrillation with uncontrolled ventricular response. Inferior infarct - age undeterm ined Possible anterior infarct - age undetermined Lateral ST-T changes may be due to myocardial ische sunny Low QRS voltages in precordial leads Compared to previous tracing, rapid atrial fibrillation has replaced sinus bradycardia. ST changes are new, consider ischemia Abnormal ECG NO PREVIOUS TRACING DOCTOR: Constantino Head Interpretating Date/Time 07/31/2018 17:52:54
--- NOTE | 2018-07-31 17:58 | P.CONURO ---
History of Present Illness Service: [facility] Cornelio Consult date: 07/31/18 Requesting Physician: Irma Grimes Reason for Consult: Obstr. stone, Lft Ureter, [place], Urin. sepsis Primary Care Provider: Mara Martell MD Chief Complaint: weakness History of Present Illness: 4 day nausea, diarrhea, Urgency urinary incontinence (no dysuria, no hematuria). One day fever, shaking chills. Back pain, bilateral, "across the back". No one sided renal colic. Known small stones in kidney, passed a small stone in past. Has never seen a Urologist. No Urological procedures ever done. CT (reviewed with Radiologist, Dr. Russo) 5-6 mm stone obstructing proximal left ureter with mild hydronephrosis, other smaller stones in left kidney with an exophytic cystic mass left kidney. Cr 1.5, GFR 33 Urine culture: gram neg rods. Review of Systems Constitutional: Reports chills, Reports fever(s), Reports weakness Gastrointestinal: Reports other (diarrhea, nausea) PMFSH - History History Provided By: Patient - Medical History Medical History: Medical History (Last Updated 07/30/18 @ 14:33 by Yolis Quinones RN) Diabetes Elevated cholesterol H/O: hysterectomy HTN (hypertension) - Surgical History Surgical History: Surgical History (Last Updated 07/30/18 @ 14:33 by Yolis Quinones RN) H/O cardiac catheterization H/O knee surgery - Tobacco History Second Hand Smoke Exposure: No Tobacco Use In Past 30 Days: No Smoking Status: Never smoker - Alcohol History How Often Do You Have a Drink Containing Alcohol: Never - Substance Use History Substance History: No History of Abuse - Travel History Recent Travel in the [facility] Within the Last 8 Weeks: No - Immunization History Tetanus Immunization: >5 Years Hx Influenza Vaccine This Season: Yes Medications and Allergies Active Medications: Active Medications Acetaminophen (Tylenol) 650 mg PO Q4H PRN PRN Reason: fever/pain Last Admin: 07/31/18 06:43 Dose: 650 mg Dextrose (D50w Vial) 50 ml IV.PUSH UNSCH PRN PRN Reason: PER HYPOGLYCEMIA PROTOCOL Glucagon (Glucagon Inj) 1 mg OTHER PRN PRN PRN Reason: for Hypoglycemia Protocol Heparin Sodium (Porcine) (Heparin Inj) 5,000 units SQ Q12HR [facility] Sodium Chloride (Ns Inj) 1,000 mls @ 100 mls/hr IV.CONT .Q10H [facility] Last Admin: 07/31/18 10:08 Dose: Not Given Ceftriaxone Sodium 1,000 mg/ (Sodium Chloride) 100 mls @ 200 mls/hr IV.SIG Q24H [facility] Last Infusion: 07/31/18 08:16 Dose: Infused Insulin Aspart (Novolog Insulin Correctional Sugar Inj) 0 unit SQ ACHS [facility]; Protocol Last Admin: 07/31/18 14:29 Dose: 7 unit Metoprolol Tartrate (Lopressor) 25 mg PO Q12H [facility] Ondansetron HCl (Zofran Inj) 4 mg IV.PUSH Q6H PRN PRN Reason: NAUSEA OR VOMITING Sodium Chloride (Ns Flush) 2 ml IV.FLUSH BID [facility] Last Admin: 07/31/18 09:55 Dose: Not Given Sodium Chloride (Ns Flush) 2 ml IV.FLUSH PRN PRN PRN Reason: FLUSH AFTER USING IV ACCESS Verapamil HCl (Isoptin) 40 mg PO TID [facility] Allergies Allergy/AdvReac Type Severity Reaction Status Date / Time penicillin G Allergy Severe Hives Verified 07/30/18 14:31 Home Medications Medication Instructions Recorded Confirmed Type metformin 500 mg PO BID 07/30/18 07/30/18 History metoprolol tartrate 50 mg PO BID 07/30/18 07/30/18 History repaglinide 1 mg PO TID 07/30/18 07/30/18 History simvastatin 40 mg PO QPM 07/30/18 07/30/18 History sitagliptin [Januvia] 100 mg PO DAILY 07/30/18 07/30/18 History verapamil 240 mg PO QAM 07/30/18 07/30/18 History Physical Exam Vital Signs - 24 hr 07/30/18 18:28 07/30/18 21:59 07/30/18 22:45 Temperature 98.7 F 98.1 F 98.6 F Pulse Rate 88 81 74 Respiratory Rate 16 18 18 Blood Pressure 116/80 114/71 145/63 H Pulse Oximetry 94 L 97 97 07/31/18 00:00 07/31/18 05:57 07/31/18 06:10 Temperature 98.5 F 100.6 F H Pulse Rate 82 157 H Respiratory Rate 18 20 Blood Pressure 121/59 L 163/111 H Pulse Oximetry 96 94 L 98 07/31/18 06:15 07/31/18 06:53 07/31/18 07:40 Temperature 102.2 F H 100.7 F H 97.8 F Pulse Rate 155 H 109 H 133 H Respiratory Rate 20 18 18 Blood Pressure 149/73 H 110/49 L 99/49 L Pulse Oximetry 96 97 96 07/31/18 11:25 07/31/18 15:25 Temperature 97.3 F L 98.0 F Pulse Rate 88 93 H Respiratory Rate 16 18 Blood Pressure 109/56 L 138/60 Pulse Oximetry 98 96 Physical Exam: GENERAL: This is a well-nourished, well-developed patient, in no apparent distress. SKIN: No rashes, ecchymoses or lesions. Cool and dry. HEAD: Atraumatic. Normocephalic. No temporal or scalp tenderness. EYES: Pupils equal round and reactive. Extraocular motions intact. No scleral icterus. No injection or drainage. ENT: Nose without bleeding, purulent drainage or septal hematoma. Throat without erythema, tonsillar hypertrophy or exudate. Uvula midline. Airway patent. NECK: Trachea midline. No JVD or lymphadenopathy. Supple, nontender, no meningeal signs. CARDIOVASCULAR: Regular rate and rhythm without murmurs, gallops, or rubs. Rate 105. RESPIRATORY: Clear to auscultation. Breath sounds equal bilaterally. No wheezes , rales, or rhonchi. GASTROINTESTINAL: Abdomen soft, non-tender, nondistended. No hepato-splenomegaly , or palpable masses. No guarding. Vertical hysterectomy scar. GENITOURINARY: BLADDER: not palpable. KIDNEYS: LEFT flank tenderness to gently percussion. PELVIC/RECTUM: not examined. MUSCULOSKELETAL: Extremities without clubbing, cyanosis, or edema. No joint tenderness, effusion, or edema noted. No calf tenderness. Negative Homans sign bilaterally. NEUROLOGICAL: Awake and alert. Cranial nerves II through XII intact. Motor and sensory grossly within normal limits. Five out of 5 muscle strength in all muscle groups. Normal speech. Lab results reviewed: Yes Laboratory Results - last 24 hr 07/30/18 07/30/18 07/31/18 14:30 22:37 06:07 POC Glucose 239 H 234 H Lactic Acid Urine Color Yellow Urine Clarity Cloudy H Urine pH 5.5 Ur Specific [place] Greater/equal 1.030 Urine Protein 100 H Urine Glucose (UA) 100 H Urine Ketones 15 H Urine Occult Blood Large H Urine Nitrate Negative Urine Bilirubin Negative Urine Ictotest Negative Urine Urobilinogen 0.2 Ur Leukocyte Esterase Moderate H Urine RBC 15-50 H Urine WBC Innumerable H Urine WBC Clumps Many H Ur Squamous Epith Cells 0-5 Urine Bacteria Many H Micro UA Comment Culture indicated Ur Microscopic Review Microscopic reviewed Urine Culture Comments Culture indicated 07/31/18 07/31/18 07/31/18 06:21 07:43 09:20 POC Glucose 250 H Lactic Acid 2.7 H 1.6 Urine Color Urine Clarity Urine pH Ur Specific [place] Urine Protein Urine Glucose (UA) Urine Ketones Urine Occult Blood Urine Nitrate Urine Bilirubin Urine Ictotest Urine Urobilinogen Ur Leukocyte Esterase Urine RBC Urine WBC Urine WBC Clumps Ur Squamous Epith Cells Urine Bacteria Micro UA Comment Ur Microscopic Review Urine Culture Comments 07/31/18 12:00 POC Glucose 277 H Lactic Acid Urine Color Urine Clarity Urine pH Ur Specific [place] Urine Protein Urine Glucose (UA) Urine Ketones Urine Occult Blood Urine Nitrate Urine Bilirubin Urine Ictotest Urine Urobilinogen Ur Leukocyte Esterase Urine RBC Urine WBC Urine WBC Clumps Ur Squamous Epith Cells Urine Bacteria Micro UA Comment Ur Microscopic Review Urine Culture Comments Microbiology 07/30/18 14:30 Urine Culture - Preliminary Clean Catch Urine gram negative rods 07/30/18 18:15 Aerobic Blood Culture - Preliminary Blood - Peripheral No growth in 1 day Anaerobic Blood Culture - Preliminary No growth in 1 day 07/30/18 18:25 Aerobic Blood Culture - Preliminary Blood - Peripheral No growth in 1 day Anaerobic Blood Culture - Preliminary No growth in 1 day Result Diagrams: 07/30/18 14:45 07/30/18 16:40 Personally reviewed images: Yes Imaging: ITS Impressions Abdomen/Pelvis CT 07/30/18 17:13 CONCLUSION: 1. Small calculi are identified in the left renal collecting system and proximal ureter. There is mild hydronephrosis with perinephric stranding characteristic of obstructive uropathy. 2. Thick walled cyst off the lateral margin of mid left kidney. Cystic malignancy needs to be considered. 3. Uncomplicated colonic diverticulosis. 4. Fibrotic lung disease right lower lobe. 5. Status post hysterectomy and cholecystectomy. Abdomen/Bladder Ultrasound 07/30/18 18:40 CONCLUSION: 1. Mild left-sided hydronephrosis. Calyceal calculi noted on CT exam are not demonstrated on ultrasound. 2. 3.9 cm primarily hypoechoic exophytic cystic lesion arising from the mid left kidney. This corresponds to the thick walled cystic lesion on CT exam with adjacent stranding. There is no definite nodular component or evidence for vascularity. Differential considerations include hemorrhagic cyst versus secondarily infected cyst although cystic neoplasm is not entirely excluded by ultrasound. Multiphasic renal mass MRI or CT examination is recommended once patient's acute left-sided obstructive uropathy is resolved. Assessment and Plan - Assessment (1) Sepsis due to gram-negative urinary tract infection Code(s): A41.50 - Gram-negative sepsis, unspecified; N39.0 - Urinary tract infection, site not specified Status: Acute Onset Date: ~07/28/18 (2) Left ureteral calculus Code(s): N20.1 - Calculus of ureter Status: Acute Onset Date: ~07/28/18 (3) Hydronephrosis due to obstruction of ureter Code(s): N13.2 - Hydronephrosis with renal and ureteral calculous obstruction Status: Acute Onset Date: ~07/28/18 (4) Calculus of left kidney Code(s): N20.0 - Calculus of kidney Status: Chronic Onset Date: Unknown - Plan Will place urinary stent into LEFT ureter and kidney tonight. Discussed Condition With: Patient, son, nurse, Dr. Grimes Discharge Planning: Discahrge When medically stable, sepsis cleared. F/U with Urologist for treatment/removal of stone left ureter and stent left ureter and also possibly further evaluation of left kidney mass.
[2018-07-31] MEDS: Heparin - SQ 10,000 UNITS/ML Vial SQ SCH (20:17)
--- NOTE | 2018-07-31 21:58 | P.OP ---
- Preoperative Diagnosis (1) Hydronephrosis due to obstruction of ureter (2) Left ureteral calculus (3) Sepsis due to gram-negative urinary tract infection (4) Calculus of left kidney - Postoperative Diagnosis (1) Hydronephrosis due to obstruction of ureter (2) Left ureteral calculus (3) Sepsis due to gram-negative urinary tract infection (4) Calculus of left kidney Date of procedure: 07/31/18 Procedure: Cystoscopy, Placement of 6.0 Fr., 26 cm urinary stent into LEFT ureter and kidney. Anesthesia: GETA Surgeon: Brady Hawthorne MD Estimated blood loss (mL): 0 Pathology: other (Cath urine for bacterial C&S) Operation and Findings: Patient placed on the cystoscopy table supine. She was given 40 mg of gentamicin by anesthesia before the procedure. She was given general anesthesia with endotracheal airway. She was correctly positioned on the table for the urological procedure, the legs were placed in stirrups in the dorsal lithotomy position. She was prepped with Betadine. The area included suprapubic up to the umbilicus , the perineum, the vagina, and medial thighs. She was draped sterilely. Then 2 timeouts were done, first for the patient and second for fire. Cystoscopy was done by inserting a 20 Faroese cystoscope with obturator in place into the bladder. The bladder interior was then visualized with a 70 degree lens. Bladder wall found to be smooth with no lesions, no tumors, normal vascularity. The bladder floor was depressed posteriorly caused by a mild cystocele. The trigone was visualized and both right and left ureters were normal in configuration and also in placement. Ureters were single, no duplication seen. The 70 degree lens was then replaced with a 30 degree lens. Through the cystoscope a 6 Faroese open ended ureteral catheter was passed approximately 2 cm up the left ureter. Then a floppy tipped guidewire was passed through the ureteral catheter all the way into the kidney under fluoroscopic control. There was no obvious resistance in passing the stent and the stone was not visualized by the fluoroscope. The guidewire was seen to be coiled in the kidney. The ureteral catheter was then removed over the guidewire and then a 6.0 Faroese , 26 cm length double-J stent was passed into the left kidney where the upper coil was seen fluoroscopically. The guidewire was partially removed for confirmation. The black ring on the distal end of the stent was positioned at the ureteral meatus. Fluoroscopy was repeated to determine that the upper end coil was actually in place and coiled. The pullout string was then removed. Then the guidewire was removed with the pusher in place. The lower end of the stent was seen to coil inside the bladder. Fluoroscopy was used again to confirm that both the upper call and lower core were correctly positioned and coiled. The patient tolerated the procedure well without any surgical or urological complication. Anesthesia reported patient required some vasopressors to maintain blood pressure. Patient was found to be stable in the recovery room. Plan is to treat patient medically for urinary sepsis and discharge when she is stable and sepsis has cleared. (Cath urine was obtained on insertion of scope and sent for bacterial culture and sensitivity). F/U Urology clinic for stent removal.
--- NOTE | 2018-07-31 23:08 | XR ---
EXAM DATE: 07/31/2018 9:37 PM EST AGE/SEX: 83 years / Female INDICATIONS: Obstruction with stent placement. Left renal calculi mild left hydronephrosis seen on C T. CLINICAL DATA: This is the patient's initial encounter. Patient reports that signs and symptoms have been present for 1 day and indicates a pain score of Nonresponsive. MEDICAL/SURGICAL HISTORY: . Diabetes. Hypercholesterolemia. Hypertension. Hysterectomy. Cardiac catheterization. Knee surgery. . COMPARISON: [facility], CT ABDOMEN & PELVIS W/O CONTRAST, 07/30/2018. . FINDINGS: 2 coned-down view of central abdomen and pelvis was obtained using the matrix camera. This demonstrat es a left ureteral stent catheter in place. There is apparent faint calcified phleboliths again noted in the left side of the pelvis. There is no visualized left ureteral or renal calculi. There is mode rate scoliosis of the lumbar spine with mild degenerative change. CONCLUSION: Left double pigtail ureteral stent catheter. Electronically signed by: Rock Dubois MD Board Certified Radiologist 07/31/2018 11:06 PM EST
[2018-07-31] MEDS: Metoprolol Tartrate 25 MG Tablet PO SCH (23:16)
[2018-08-01] MEDS ORDERED: Digoxin 125 MCG Tablet PO ONE (03:44)
[2018-08-01] MEDS: Sod Chloride 0.9% Inj 1,000 ML IV.CONT SCH ×3 (04:26→14:50)
[2018-08-01] MEDS ORDERED: Metoprolol Tartrate 25 MG Tablet PO SCH (05:00)
[2018-08-01] MEDS ORDERED: dilTIAZem Inj 125 MG in Sodium Chlor 0.9% Inj 100 ML IV.CONT PRN (06:26)
[2018-08-01 07:23] LABS: Baso # (Auto) 0.2 th/mm3 (0.0-0.2); Baso % (Auto) 1.1 % (0.0-2.0); Eos # (Auto) 0.1 th/mm3 (0.0-0.4); Eos % (Auto) 0.8 % (0.0-4.0); Hematocrit 32.6 % (35.0-46.0); Hemoglobin 10.9 gm/dL (11.6-15.3); Lymph # (Auto) 0.4 th/mm3 (1.0-4.8); Lymph % (Auto) 2.2 % (9.0-44.0); Mean Corpuscular HGB Conc 33.4 % (32.0-36.0); Mean Corpuscular Hemoglobin 33.1 pg (27.0-34.0); Mean Corpuscular Volume 99.1 fL (80.0-100.0); Mean Platelet Volume 10.6 fL (7.0-11.0); Mono # (Auto) 0.6 th/mm3 (0.0-0.9); Mono % (Auto) 3.8 % (0.0-8.0); Neut # (Auto) 15.8 th/mm3 (1.8-7.7); Neut % (Auto) 92.1 % (16.0-70.0); Platelet Count 96 th/mm3 (150-450); Red Blood Count 3.29 mil/mm3 (4.00-5.30); Red Cell Distribution Width 13.9 % (11.6-17.2); White Blood Count 17.2 th/mm3 (4.0-11.0)
[2018-08-01 07:38] LABS: Calcium 8.2 mg/dL (8.5-10.1); Carbon Dioxide 17.7 meq/L (21.0-32.0); Magnesium 1.8 mg/dL (1.5-2.5); Potassium 3.1 meq/L (3.5-5.1)
[2018-08-01] MEDS: Insulin NovoLOG Aspart Correctional Sugar Inj SQ SCH ×4 (07:45→21:41)
[2018-08-01] MEDS: Heparin - SQ 10,000 UNITS/ML Vial SQ SCH (09:43)
[2018-08-01 10:25] LABS: Lymphocytes 1 % (9-44); Monocytes 6 % (0-8)
[2018-08-01 10:26] LABS: Platelet Morphology Normal (Normal); Toxic Granulation 2+
[2018-08-01] MEDS ORDERED: Magnesium Oxide 400 MG Tablet PO PRN (10:58)
[2018-08-01] MEDS ORDERED: Sodium Phosphate Inj 30 MMOL in Sodium Chlor 0.9% Inj 250 ML IV.SIG PRN (10:58)
[2018-08-01] MEDS ORDERED: Magnesium Sulfate Inj 4 GM in Sodium Chlor 0.9% Inj 92 ML IV.SIG PRN (10:58)
[2018-08-01] MEDS ORDERED: Potassium Chlor 40 mEq Premix 40 MEQ/100 ML PIGGYBACK IV.SIG PRN ×2 (10:58)
[2018-08-01] MEDS ORDERED: Magnesium Sulfate Inj 2 GM in Sodium Chlor 0.9% Inj 96 ML IV.SIG PRN (10:58)
[2018-08-01] MEDS ORDERED: Potassium Chlor 20 mEq Premix 20 MEQ/100 ML PIGGYBACK IV.SIG PRN (10:58)
[2018-08-01] MEDS ORDERED: Potassium Phosphate 500 MG Soluble Tablet PO PRN ×2 (10:58)
[2018-08-01] MEDS ORDERED: Potassium Chloride 25 MEQ Effervescent Tablet PO PRN (10:58)
[2018-08-01] MEDS ORDERED: Potassium Phosphate Inj 30 MMOL in Sodium Chlor 0.9% Inj 250 ML IV.SIG PRN (10:58)
[2018-08-01] MEDS ORDERED: Amiodarone Inj 150 MG in Dextrose 5% in Water Inj 97 ML IV.SIG ONE ×2 (11:02)
--- NOTE | 2018-08-01 12:43 | P.PNIM ---
Subjective Interval history: 83 yo f admitted w uti and sepsis due to pyelonephritis and obstructing L proximal 5mm stone w hydronephrosis and exophytic L complex renal mass developed afib w rvr underwent cysto w stent placement, had persistent afib rvr w no symptoms and stable blood pressures s/p dig and lopressor wo response so transferred to MICU this morning due to HR in the 160s. pt seen and examined this morning, was upset that she didnt have breakfast yet, denies cp, dizziness, mild sob w cough, denies hx of afib, states just ' tachycardia" for which her pcp started her on metoprolol and verapamil, she denies cardiac hx or symptoms otherwise, patient was awaiting cardizem bolus and gtt Physical Exam Vital signs: Last Vital Signs Temp 98.3 F 08/01/18 03:30 Pulse 135 H 08/01/18 03:30 Resp 14 08/01/18 03:30 BP 97/57 L 08/01/18 03:30 Pulse Ox 97 08/01/18 03:30 Intake & Output 07/30/18 07/31/18 08/01/18 08/02/18 06:59 06:59 06:59 06:59 Intake Total 2100 / 2100 3340 / 3340 100 / 100 Output Total 450 / 450 Balance 2100 / 2100 2890 / 2890 100 / 100 Weight 60.45 kg 57.2 kg 59.6 kg pleasant wdwn pale w 83 yo f, feels febrile aaox3 nad heart s1s2 irreg mr lungs clear no wrr good air movment r base fine crackles abd soft nondt pos bs ext no edema, no calf tenderness Results Labs CBC & Chem 7: 08/01/18 06:37 08/01/18 06:37 Labs: Microbiology 07/30/18 14:30 Clean Catch Urine Urine Culture - Final Klebsiella pneumoniae 07/30/18 18:15 Blood - Peripheral Aerobic Blood Culture - Preliminary No growth in 2 days 07/30/18 18:15 Blood - Peripheral Anaerobic Blood Culture - Preliminary No growth in 2 days 07/30/18 18:25 Blood - Peripheral Aerobic Blood Culture - Preliminary No growth in 2 days 07/30/18 18:25 Blood - Peripheral Anaerobic Blood Culture - Preliminary No growth in 2 days Imaging Imaging: Impressions Abdomen X-Ray 07/31/18 00:00 CONCLUSION: Left double pigtail ureteral stent catheter. Assessment and Plan (1) Sepsis due to gram-negative urinary tract infection: Code(s): A41.50 - Gram-negative sepsis, unspecified; N39.0 - Urinary tract infection, site not specified Status: Acute Onset Date: ~07/28/18 (2) Left ureteral calculus: Code(s): N20.1 - Calculus of ureter Status: Acute Onset Date: ~07/28/18 (3) Hydronephrosis due to obstruction of ureter: Code(s): N13.2 - Hydronephrosis with renal and ureteral calculous obstruction Status: Acute Onset Date: ~07/28/18 (4) Calculus of left kidney: Code(s): N20.0 - Calculus of kidney Status: Chronic Onset Date: Unknown Plan SEPSIS due to complicated UTI/pyelonephritis - improving, on ivf, klebsiella growing, await sensitivites, continue iv rocephin L URETERAL lithiasis causing OBSTRUCTIVE HYDRONEPHROSIS - s/p cystoscopic dj stent placement - L CYSTIC exophytic RENAL MASS - due to infection/pyelo vs neoplasm - fu w urology NIDDM, uncontrolled, continue insulin sliding scale - diet, accuchecks, iss AFIB w RVR - denies hx of afib, failed dig, lopressor, will give cardizem, if that not working , amiodarone, hopefully converts, chads2-vasc score 5 - recommend ac, will start lovenox for now, will get echo and cardio consultation. HTN hx - has been up and down on meds THROMBOCYTOPENIAlikely related to sepsis and infection, no history of this, stable, monitor on lovenox RONEY w dehydration, hyponatremia -better, now w hypokalemia - replace per protocol dvt prophylaxis - heparin sq disposition - home once stable pending clinical course Progress Note: Quality VTE Deep Vein Thrombosis/Pulmonary Embolism Present on Admission: No
[2018-08-01] MEDS: Metoprolol Tartrate 25 MG Tablet PO SCH (12:54)
[2018-08-01] MEDS ORDERED: Enoxaparin Inj 60 MG/0.6 ML Syringe SQ SCH (13:00)
--- NOTE | 2018-08-01 13:21 | P.PNID ---
Subjective Remarks: ID Coverage This is an 83-year-old white female who presented to the emergency department on 07/30/2018 with nausea, vomiting and diarrhea. The patient reported that 4 days ago she developed sudden vomiting and also noted that she was having urinary hesitancy and marked decreased appetite. She denied chills or fever. She also developed pain across the lower back. She presented to the emergency department for evaluation. Temperature in the emergency department was 98.5, and later bertrand to 102.2 this morning. Blood cultures were taken and also urine culture was taken. Urinalysis revealed innumerable white cells. Consultation is requested for evaluation and management. The patient had a bladder ultrasound, which showed mild left-sided hydronephrosis and a 3.9 cm primarily hypoechoic exophytic cystic lesion arising from the mid left kidney. Also, there was adjacent stranding noted. White blood cell count elevated at 16.9. The patient also has acute kidney disease and her estimated GFR is 33. The patient denies other symptoms. Notes reviewed Temps ok Had urology procedure yestaerday - has stent BC negative UC Klebsiella New UC pending WBC higher at 17 Antibiotics: Rocephin Past Medical History: Hypercholesterolemia, diabetes mellitus, history of cholecystectomy, history of hysterectomy, history of bilateral knee surgery. Allergies/Adverse Reactions: Allergies penicillin G Allergy (Severe, Verified 07/30/18 14:31) Hives Objective Vital Signs 07/31/18 15:25 07/31/18 21:20 07/31/18 21:30 Temperature 98.0 F 98.4 F 98.4 F Pulse Rate 93 H 106 H 121 H Respiratory Rate 18 14 16 Blood Pressure 138/60 100/56 L 101/59 L Pulse Oximetry 96 95 96 07/31/18 21:45 07/31/18 22:28 08/01/18 00:00 Temperature 98.4 F 99.7 F H 98.0 F Pulse Rate 127 H 114 H 107 H Respiratory Rate 16 16 18 Blood Pressure 110/57 L 147/82 H 99/48 L Pulse Oximetry 95 93 L 97 08/01/18 03:30 Temperature 98.3 F Pulse Rate 135 H Respiratory Rate 14 Blood Pressure 97/57 L Pulse Oximetry 97 Intake & Output 07/31/18 08/01/18 08/01/18 18:59 06:59 18:59 Intake Total 1100 / 1100 2240 / 2240 100 / 100 Output Total 450 / 450 Balance 1100 / 1100 1790 / 1790 100 / 100 Weight 57.2 kg 59.6 kg Intake: IV 1100 / 1100 1000 / 1000 100 / 100 NS Inj 1,000 ML @ 120 mls/hr IV 1000 / 1000 .CONT .Q8H20M ARI Rx#:[id number] NS Inj 1,000 ML @ 1000 mls/hr 1000 / 1000 IV.SIG BOLUS ARI Rx#:[id number] Rocephin Inj 1,000 MG In NS Inj 100 / 100 100 / 100 100 ML @ 200 mls/hr IV.SIG Q24H ARI Rx#:[id number] Oral 240 / 240 Anesthesia Amount 1000 / 1000 Output: Urine 450 / 450 Other: # Voids 3 2 # Incontinent Voids 5 07/30/18 14:30 Clean Catch Urine Urine Culture - Final Klebsiella pneumoniae 07/30/18 18:15 Blood - Peripheral Aerobic Blood Culture - Preliminary No growth in 2 days 07/30/18 18:15 Blood - Peripheral Anaerobic Blood Culture - Preliminary No growth in 2 days 07/30/18 18:25 Blood - Peripheral Aerobic Blood Culture - Preliminary No growth in 2 days 07/30/18 18:25 Blood - Peripheral Anaerobic Blood Culture - Preliminary No growth in 2 days 07/31/18 18:41 Random Urine Urine Culture - Pending Lab - Hematology Results 07/30/18 08/01/18 14:45 06:37 CBC w Diff Slide review pending WBC 16.9 H 17.2 H RBC 3.70 L 3.29 L Hgb 12.2 10.9 L Hct 35.6 32.6 L MCV 96.3 99.1 MCH 33.0 33.1 MCHC 34.2 33.4 RDW 12.6 13.9 Plt Count 96 L 96 L MPV 10.3 10.6 Prelim Diff (Auto) Slide review pending Neut % (Auto) 92.3 H 92.1 H Lymph % (Auto) 1.9 L 2.2 L [place] % (Auto) 5.1 3.8 Eos % (Auto) 0.4 0.8 Baso % (Auto) 0.3 1.1 Neut # (Auto) 15.5 H 15.8 H Lymph # (Auto) 0.3 L 0.4 L [place] # (Auto) 0.9 0.6 Eos # (Auto) 0.1 0.1 Baso # (Auto) 0.1 0.2 WBC Differential . Manual diff final Diff Scan Auto diff confirmed Seg Neuts % (Manual) 66 Band Neuts % (Manual) 27 H Lymphocytes % (Manual) 1 L Monocytes % (Manual) 6 Abs Neuts (Manual) 16.0 H Differential Comment . . Toxic Granulation 1+ H 2+ H Dohle Bodies Present H Platelet Estimate Low L Low L Platelet Morphology Normal Normal Lab - Chemistry Results 07/30/18 07/30/18 07/30/18 14:45 16:40 22:37 Sodium 128 L Potassium 4.0 Chloride 95 L Carbon Dioxide 23.4 Anion Gap 10 BUN 37 H Creatinine 1.50 H Estimated GFR 33 L POC Glucose 239 H Random Glucose 291 H Lactic Acid 1.9 Calcium 9.1 Magnesium Total Bilirubin 1.2 H AST 29 ALT 28 Alkaline Phosphatase 72 Total Protein 6.8 Albumin 2.2 L Lipase 140 07/31/18 07/31/18 07/31/18 06:07 06:21 07:43 Sodium Potassium Chloride Carbon Dioxide Anion Gap BUN Creatinine Estimated GFR POC Glucose 234 H 250 H Random Glucose Lactic Acid 2.7 H Calcium Magnesium Total Bilirubin AST ALT Alkaline Phosphatase Total Protein Albumin Lipase 07/31/18 07/31/18 07/31/18 09:20 12:00 17:48 Sodium Potassium Chloride Carbon Dioxide Anion Gap BUN Creatinine Estimated GFR POC Glucose 277 H 247 H Random Glucose Lactic Acid 1.6 Calcium Magnesium Total Bilirubin AST ALT Alkaline Phosphatase Total Protein Albumin Lipase 07/31/18 08/01/18 08/01/18 21:53 06:37 07:38 Sodium 137 Potassium 3.1 L D Chloride 106 D Carbon Dioxide 17.7 L Anion Gap 13 BUN 26 H Creatinine 1.04 H Estimated GFR 51 L POC Glucose 168 H 237 H Random Glucose 195 H Lactic Acid Calcium 8.2 L D Magnesium 1.8 Total Bilirubin AST ALT Alkaline Phosphatase Total Protein Albumin Lipase 08/01/18 12:56 Sodium Potassium Chloride Carbon Dioxide Anion Gap BUN Creatinine Estimated GFR POC Glucose 245 H Random Glucose Lactic Acid Calcium Magnesium Total Bilirubin AST ALT Alkaline Phosphatase Total Protein Albumin Lipase Imaging: ITS Impressions Abdomen/Pelvis CT 07/30/18 17:13 CONCLUSION: 1. Small calculi are identified in the left renal collecting system and proximal ureter. There is mild hydronephrosis with perinephric stranding characteristic of obstructive uropathy. 2. Thick walled cyst off the lateral margin of mid left kidney. Cystic malignancy needs to be considered. 3. Uncomplicated colonic diverticulosis. 4. Fibrotic lung disease right lower lobe. 5. Status post hysterectomy and cholecystectomy. Abdomen/Bladder Ultrasound 07/30/18 18:40 CONCLUSION: 1. Mild left-sided hydronephrosis. Calyceal calculi noted on CT exam are not demonstrated on ultrasound. 2. 3.9 cm primarily hypoechoic exophytic cystic lesion arising from the mid left kidney. This corresponds to the thick walled cystic lesion on CT exam with adjacent stranding. There is no definite nodular component or evidence for vascularity. Differential considerations include hemorrhagic cyst versus secondarily infected cyst although cystic neoplasm is not entirely excluded by ultrasound. Multiphasic renal mass MRI or CT examination is recommended once patient's acute left-sided obstructive uropathy is resolved. Abdomen X-Ray 07/31/18 00:00 CONCLUSION: Left double pigtail ureteral stent catheter. Physical Exam: GENERAL: Slender female who is in no acute distress. She is awake and alert and oriented. HEENT: Head atraumatic. Extraocular movements are grossly intact. Pupils reactive to light. No icterus. Oropharynx: Mucosa slightly dry. NECK: Supple without adenopathy or swelling. LUNGS: Clear, decreased breath sounds. HEART: Irregular rate and rhythm without murmurs, rubs or gallops. ABDOMEN: Bowel sounds present. Soft, no tenderness appreciated. Mildly distended. EXTREMITIES: No clubbing, cyanosis or edema. SKIN: No rash. The skin appears pale. NEUROLOGIC: No gross focal findings. PSYCHIATRIC: The patient is pleasant, calm and cooperative. Assessment and Plan - Plan IMPRESSION: Compliacted UTI - S/P stent Klebsiella UTI Possible sepsis due to source Acute kidney disease, stage III. Fever and leukocytosis secondary to infection. RECOMMENDATIONS: Continue ceftriaxone. Monitor the temperature. Follow white blood cell count. Follow C/S Repeat UA and C/S post stent placement
[2018-08-01] MEDS: Potassium Chlor 20 mEq Premix 20 MEQ/100 ML PIGGYBACK IV.SIG PRN ×3 (13:53→21:42)
[2018-08-01] MEDS ORDERED: Digoxin Inj 500 MCG/2 ML Ampul IV.PUSH ONE ×2 (15:00→21:00)
--- NOTE | 2018-08-01 15:00 | MB ---
cc: Constantino Head MD DATE: 08/01/2018 REASON FOR CONSULTATION: New onset atrial fibrillation. HISTORY OF PRESENT ILLNESS: The patient is a very pleasant 83-year-old woman who denies any cardiac history except for "tachycardia" but she cannot give me any further details about this. She presented with nausea and vomiting and generalized weakness. She presented to the emergency department and felt to be mildly septic, so was transferred to the main ICU. There she went into a rapid atrial fibrillation as high as the 150s and thus I was consulted. Currently, she is on a Cardizem drip, but still tachycardic between the 1-teens and 140s. She is actually asymptomatic during these heart rates and denies any chest pain, shortness of breath, lightheadedness or dizziness. PAST MEDICAL HISTORY: Hypertension, diabetes, "tachycardia," hyperlipidemia. CURRENT MEDICATIONS: 1. Eliquis 2.5 mg b.i.d. (just started). 2. Digoxin (just started). 3. Cardizem drip, p.o. Cardizem 30 mg q.i.d. (just started). 4. Lopressor 25 mg q.12. 5. Potassium. ALLERGIES: PENICILLIN. PHYSICAL EXAMINATION: VITAL SIGNS: Afebrile, pulse 135, respiratory rate 14, BP 97/57, saturating 97 on room air. GENERAL: A very pleasant, elderly woman, in no distress. NECK: No JVD. LUNGS: Clear to auscultation bilaterally. CARDIOVASCULAR: Irregularly irregular rhythm with a rapid rate. No significant murmurs appreciated. ABDOMEN: Benign. EXTREMITIES: No edema. LABORATORY DATA: Sodium 137, potassium 3.1, chloride 106, bicarbonate 17.7, BUN 26, creatinine 1.04, glucose 245. White count 17.2, hematocrit 10.9, platelets 96. EKG shows atrial fibrillation with diffuse nonspecific ST changes. IMPRESSION: Atrial fibrillation. The patient has new onset atrial fibrillation, possibly exacerbated by her hypokalemia. I have initiated digoxin load given her low blood pressures on current medications and Eliquis 2.5 mg b.i.d. (low dose for age and weight). She will get an echocardiogram to evaluate her left ventricular function. Further recommendations based on her clinical course and the studies above. Thank you again for the opportunity to participate in this patient's care. MD Ezio Jeong , 02:46 PM , 02:51 PM
--- NOTE | 2018-08-01 16:49 | ECG ---
Date Performed: 08/01/2018 Time Performed: 06:01:46 PTAGE: 83 years EKG: Atrial fibrillation with rapid ventricular response. Poor R wave progression - probable nor mal variant Inferior ST-T changes are nonspecific Abnormal ECG Compared to PREVIOUS TRACING , ventricular response to the atrial fibrillation has decreased from 157 to 123, otherwise no significant change PREVIOUS TRACIN07/31/2018 DOCTOR: Yohan Romero Interpretating Date/Time 08/01/2018 16:47:34
[2018-08-01 17:20] LABS: ABG Base Excess -11.4 mmol/L (-2-2); ABG PCO2 20 mmHg (38-42); ABG PO2 64 mmHG (61-120)
--- NOTE | 2018-08-01 17:42 | XR ---
EXAM DATE: 08/01/2018 5:38 PM EST AGE/SEX: 83 years / Female INDICATIONS: Shortness of breath. CLINICAL DATA: This is the patient's initial encounter. Patient reports that signs and symptoms have been present for 1 day and indicates a pain score of Nonresponsive. MEDICAL/SURGICAL HISTORY: . Diabetes. Hypercholesterolemia. Hypertension. Hysterectomy. Cardiac catheterization. Knee surgery. . COMPARISON: No prior exams available for comparison. FINDINGS: Left lung base opacity is present may be due to a combination of consolidation and or pleu ral effusion. There is mild prominence of vascular markings most likely pulmonary edema. CONCLUSION: Left lung base opacity is present may be due to a combination of consolidation and or pleural effusio n, mild pulmonary edema . Electronically signed by: Michelle Russo MD Board Certified Radiologist 08/01/2018 5:40 PM EST
[2018-08-01] MEDS: Acetaminophen 325 MG Tablet PO PRN (17:51)
[2018-08-01] MEDS: dilTIAZem 30 MG Tablet PO SCH ×2 (18:01→21:13)
--- NOTE | 2018-08-01 18:59 | P.CONCC ---
History of Present Illness Service: Critical Care Medicine Consult date: 08/01/18 Requesting Physician: Irma Grimes Reason for Consult: "Sepsis and A fib RVR" Primary Care Provider: Mara Martell MD Chief Complaint: n/v History of Present Illness: 83 yo WF with PMH of hypertension, type 2 diabetes, hyperlipidemia. She states she has a past history of "tachycardia" for which she takes metoprolol; (denies h/o A fib?). She presented to [facility] emergency department on 07/30/18 with 4-day history of nausea, vomiting, dysuria and anorexia. She was initially afebrile on arrival, later had temp 102.2. CT abd/pelvis demonstrated L renal calculi at the proximal ureter with mild hydronephrosis and perinephric stranding. There is thick walled cyst off the lateral margin of the left kidney with concern for malignancy. She was septic with white blood cell count of 16 and acute kidney injury creatinine of 1.5 (baseline 0.7). She underwent cystoscopy with placement of left ureteral stent 07/31/[address] Hawthorne. She was placed on Rocephin. Urine culture demonstrated Klebsiella pneumonia which was sensitive to Rocephin. Blood cultures from 07/30/18 were negative. The morning of 08/01 she was in atrial fibrillation with RVR and was started on Cardizem drip. She remained tachycardic despite Cardizem drip and therefore digoxin load has been ordered per cardiology. Critical care medicine is consulted for management given the presence of tachycardia and sepsis. Patient primarily complains of thirst. Says she has some shortness of breath but denies cough, chest pain/pressure, nausea. Review of Systems All other systems reviewed negative except as stated in HPI Constitutional: Reports chills, Reports fever(s) Cardiovascular: Denies chest pain, Denies chest pain at rest Respiratory: Denies chest congestion, Denies cough Gastrointestinal: Reports bloating, Denies abdominal pain Allergic/Immunologic: Denies hives PMFSH - History History Provided By: Patient - Medical History Medical History: Medical History (Last Reviewed 08/02/18 @ 01:30 by Abena Arriaga MD) Diabetes Elevated cholesterol H/O: hysterectomy HTN (hypertension) - Surgical History Surgical History: Surgical History (Last Updated 08/02/18 @ 01:32 by Abena Arriaga MD) H/O cardiac catheterization H/O knee surgery Hx of cataract surgery - Family History Family History: Family History (Last Updated 08/02/18 @ 01:32 by Abena Arriaga MD) Other No significant family history - Social History I have reviewed the patient's Social History: Yes - Tobacco History Second Hand Smoke Exposure: No Tobacco Use In Past 30 Days: No Smoking Status: Never smoker - Alcohol History How Often Do You Have a Drink Containing Alcohol: Never - Substance Use History Substance History: No History of Abuse - Travel History Recent Travel in the [facility] Within the Last 8 Weeks: No - Immunization History Tetanus Immunization: >5 Years Hx Influenza Vaccine This Season: Yes Medications and Allergies Active Medications: Active Medications Acetaminophen (Tylenol) 650 mg PO Q4H PRN PRN Reason: fever/pain Last Admin: 08/01/18 17:51 Dose: 650 mg Apixaban (Eliquis) 2.5 mg PO BID ARI Dextrose (D50w Vial) 50 ml IV.PUSH UNSCH PRN PRN Reason: PER HYPOGLYCEMIA PROTOCOL Digoxin (Lanoxin Inj) 250 mcg IV.PUSH ONCE ONE Stop: 08/01/18 21:01 Digoxin (Lanoxin) 125 mcg PO DAILY [facility] Digoxin (Lanoxin Inj) 250 mcg IV.PUSH ONCE ONE Stop: 08/02/18 03:01 Diltiazem HCl (Cardizem) 30 mg PO QID [facility] Last Admin: 08/01/18 18:01 Dose: 30 mg Glucagon (Glucagon Inj) 1 mg OTHER PRN PRN PRN Reason: for Hypoglycemia Protocol Diltiazem HCl 125 mg/ Sodium (Chloride) 125 mls @ 5 mls/hr IV.CONT TITRATE PRN ; Protocol PRN Reason: Per Protocol Last Titration: 08/01/18 10:18 Dose: 10 mg/hr, 10 mls/hr Magnesium Sulfate 4 gm/ Sodium (Chloride) 100 mls @ 50 mls/hr IV.SIG UNSCH PRN PRN Reason: For Magnesium 0.9 - 1.1 mg/dL Magnesium Sulfate 2 gm/ Sodium (Chloride) 100 mls @ 50 mls/hr IV.SIG UNSCH PRN PRN Reason: For Magnesium 1.2 - 1.6 mg/dL Last Infusion: 08/01/18 13:54 Dose: Infused Potassium Chloride (Kcl 40 Meq Premix Inj) 40 meq in 100 mls @ 25 mls/hr IV.SIG Q2H PRN PRN Reason: For Potassium 2.8 - 3.2 mEq/L Potassium Chloride (Kcl 20 Meq Premix Inj) 20 meq in 100 mls @ 50 mls/hr IV.SIG Q2H PRN PRN Reason: For Potassium 3.3 - 3.5 mEq/L Last Admin: 08/01/18 18:11 Dose: 50 mls/hr Potassium Chloride (Kcl 40 Meq Premix Inj) 40 meq in 100 mls @ 25 mls/hr IV.SIG UNSCH PRN PRN Reason: For Potassium 3.3 - 3.5 mEq/L Potassium Chloride (Kcl 20 Meq Premix Inj) 20 meq in 100 mls @ 50 mls/hr IV.SIG Q2H PRN PRN Reason: For Potassium 2.8 - 3.2 mEq/L Last Infusion: 08/01/18 13:53 Dose: Infused Potassium Phosphate 30 mmol/ (Sodium Chloride) 260 mls @ 42 mls/hr IV.SIG UNSCH PRN PRN Reason: SEE LABEL COMMENTS Sodium Phosphate 30 mmol/ (Sodium Chloride) 260 mls @ 42 mls/hr IV.SIG UNSCH PRN PRN Reason: For Phosphorus < 2.5 mg/dL Ceftriaxone Sodium 1,000 mg/ (Sodium Chloride) 100 mls @ 200 mls/hr IV.SIG Q12H ARI Lactated Ringer's (Lr 1000 Ml Inj) 1,000 mls @ 125 mls/hr IV.CONT .Q8H ARI Insulin Aspart (Novolog Insulin Correctional Sugar Inj) 0 unit SQ ACHS ARI; Protocol Last Admin: 08/01/18 18:08 Dose: 7 unit Magnesium Oxide (Mag-Ox) 800 mg PO UNSCH PRN PRN Reason: For Magnesium 1.2 - 1.6 mg/dL Metoprolol Tartrate (Lopressor) 25 mg PO Q12H ARI Last Admin: 08/01/18 12:54 Dose: Not Given Miscellaneous Information (Mis Nursing Information) 0 each OTHER UNSCH PRN PRN Reason: SEE LABEL COMMENTS Stop: 08/01/18 21:51 Ondansetron HCl (Zofran Inj) 4 mg IV.PUSH Q6H PRN PRN Reason: NAUSEA OR VOMITING Potassium Bicarb/Potassium Chloride (K-Lyte Cl Eff) 50 meq PO UNSCH PRN PRN Reason: For Potassium 3.3 - 3.5 mEq/L Potassium Phosphate (K-Phos Original) 2,000 mg PO Q4H PRN PRN Reason: Phosphorus Less Than 2.5 mg/dL Potassium Phosphate (K-Phos Original) 2,000 mg PO UNSCH PRN PRN Reason: SEE LABEL COMMENTS Sodium Chloride (Ns Flush) 2 ml IV.FLUSH BID ARI Last Admin: 08/01/18 09:44 Dose: 2 ml Sodium Chloride (Ns Flush) 2 ml IV.FLUSH PRN PRN PRN Reason: FLUSH AFTER USING IV ACCESS Allergies Allergy/AdvReac Type Severity Reaction Status Date / Time penicillin G Allergy Severe Hives Verified 07/30/18 14:31 Home Medications Medication Instructions Recorded Confirmed Type metformin 500 mg PO BID 07/30/18 07/30/18 History metoprolol tartrate 50 mg PO BID 07/30/18 07/30/18 History repaglinide 1 mg PO TID 07/30/18 07/30/18 History simvastatin 40 mg PO QPM 07/30/18 07/30/18 History sitagliptin [Januvia] 100 mg PO DAILY 07/30/18 07/30/18 History verapamil 240 mg PO QAM 07/30/18 07/30/18 History Physical Exam Vital signs: Vital Signs 07/31/18 21:20 07/31/18 21:30 07/31/18 21:45 Temperature 98.4 F 98.4 F 98.4 F Pulse Rate 106 H 121 H 127 H Respiratory Rate 14 16 16 Blood Pressure 100/56 L 101/59 L 110/57 L Pulse Oximetry 95 96 95 07/31/18 22:28 08/01/18 00:00 08/01/18 03:30 Temperature 99.7 F H 98.0 F 98.3 F Pulse Rate 114 H 107 H 135 H Respiratory Rate 16 18 14 Blood Pressure 147/82 H 99/48 L 97/57 L Pulse Oximetry 93 L 97 97 08/01/18 15:04 Temperature Pulse Rate 106 H Respiratory Rate 30 H Blood Pressure Pulse Oximetry 98 Intake & Output 07/31/18 08/01/18 08/01/18 18:59 06:59 18:59 Intake Total 1100 / 1100 2240 / 2240 1400 / 1400 Output Total 450 / 450 Balance 1100 / 1100 1790 / 1790 1400 / 1400 Weight 57.2 kg 59.6 kg Intake: IV 1100 / 1100 1000 / 1000 1400 / 1400 NS Inj 1,000 ML @ 120 mls/hr IV 1000 / 1000 1000 / 1000 .CONT .Q8H20M ARI Rx#:[id number] Magnesium Sulfate Inj 2 GM In 100 / 100 NS Inj 96 ML @ 50 mls/hr IV.SIG UNSCH PRN Rx#:[id number] KCl 20 mEq Premix Inj 20 meq In 200 / 200 100 ml @ 50 mls/hr IV.SIG Q2H PRN Rx#:[id number] NS Inj 1,000 ML @ 1000 mls/hr 1000 / 1000 IV.SIG BOLUS ARI Rx#:[id number] Rocephin Inj 1,000 MG In NS Inj 100 / 100 100 / 100 100 ML @ 200 mls/hr IV.SIG Q24H ARI Rx#:[id number] Oral 240 / 240 Anesthesia Amount 1000 / 1000 Output: Urine 450 / 450 Other: # Voids 3 2 # Incontinent Voids 5 Narrative: GENERAL: Elderly female who is sitting up in [facility] bed, alert and conversant. SKIN: warm, well perfused. HEAD: Atraumatic. Normocephalic. EYES: Pupils equal and round, reactive. No scleral icterus. No injection or drainage. ENT: No nasal bleeding or discharge. MMM NECK: Trachea midline. No JVD. CARDIOVASCULAR: irregularly irregular, rate controlled in 90s. no mrg. RESPIRATORY: respiratory pattern appears comfortable, no accessory muscle use. Faint Bibasilar rales. No wheeze or rhonchi. GASTROINTESTINAL: Abdomen mildly distended and tympanitic, soft and nontender. Bowel sounds present. : Purewick catheter in place with dark philip urine output. MUSCULOSKELETAL: Extremities without clubbing, cyanosis, or edema. No obvious deformities. NEUROLOGICAL: Awake and alert, oriented person, place, year, president. No obvious cranial nerve deficits. Moving all extremities spontaneously with no focal deficit. Septic Shock Reassessment Septic shock perfusion: reassessment completed Assessment and Plan - Problem List (1) Severe sepsis Code(s): A41.9 - Sepsis, unspecified organism; R65.20 - Severe sepsis without septic shock Status: Acute (2) Left ureteral calculus Code(s): N20.1 - Calculus of ureter Status: Acute Onset Date: ~07/28/18 (3) Hydronephrosis due to obstruction of ureter Code(s): N13.2 - Hydronephrosis with renal and ureteral calculous obstruction Status: Acute Onset Date: ~07/28/18 (4) Acute pyelonephritis Code(s): N10 - Acute pyelonephritis Status: Acute (5) Atrial fibrillation with RVR Code(s): I48.91 - Unspecified atrial fibrillation Status: Acute (6) Essential hypertension Code(s): I10 - Essential (primary) hypertension Status: Chronic (7) HLD (hyperlipidemia) Code(s): E78.5 - Hyperlipidemia, unspecified Status: Chronic (8) RONEY (acute kidney injury) Code(s): N17.9 - Acute kidney failure, unspecified Status: Acute (9) Leukocytosis Code(s): D72.829 - Elevated white blood cell count, unspecified Status: Acute (10) Thrombocytopenia Code(s): D69.6 - Thrombocytopenia, unspecified Status: Acute (11) Lactic acidosis Code(s): E87.2 - Acidosis Status: Acute (12) Diabetes mellitus with hyperglycemia Code(s): E11.65 - Type 2 diabetes mellitus with hyperglycemia Status: Acute (13) Left renal mass Code(s): N28.89 - Other specified disorders of kidney and ureter Status: Acute - Assessment and Plan Plan: NEURO: Tylenol as needed for pain RESP: IS q1 hour awake. NC wean as tolerated. CV: Atrial fibrillation with RVR Hypertension Hyperlipidemia Cardizem has been weaned off. Verapamil is on hold Continue metoprolol 25 mg p.o. every 12. Digoxin load has been ordered per cardiology and appears to be working well to control rate. A digoxin level was 3.5 at 16: 39 however this was drawn about an hour and a half after digoxin 500 mg IV therefore I would expect it to be falsely elevated. Will check repeat digoxin level after the load, 08/03 Eliquis 2.5 mg p.o. twice daily for anticoagulation for atrial fibrillation Continue statin, pravastatin 40 mg p.o. daily as a substitute for home simvastatin 40 mg p.o. daily Cardiology following, Dr. Ellis Noted ABG with calculated bicarb of 13 and base deficit 11.4. Hgb 13.3. Clinically she looks better than ABG would suggest. She did have bibasilar rales and mild pulmonary edema on CXR however this is probably from diastolic dysfunction/Afib because she does not clinically look volume overloaded ( thirsty, no JVD, urine concentrated). Therefore, I am continuing fluids but changed to LR 84 ml/hr instead of 0.9 NaCl due to hyperchloremia. GI: Cardiac diet Had a bowel movement today 08/01. Bowel regimen FEN/RENAL/UROLOGY: 5-6 mm obstructing kidney stone left ureter Mild hydronephrosis Exophytic cystic mass left kidney Acute kidney injury She underwent cystoscopy with placement of left ureteral stent 07/31/[address] [facility] Pure[facility] catheter is in place. Monitoring intake and output Monitor electrolytes and replace as indicated per ICU electrolyte replacement protocol. F/u with urology outpatient for retrieval of stone/stent and evaluation of renal mass. ID: Severe sepsis Acute pyelonephritis complicated by obstructing stone Urine culture lebsiella pneumoniae (sensitive to Rocephin) Blood culture 07/30no growth to date Repeat urine culture 07/31pending Repeat blood culture 5pending Influenza screenpending Urine Legionella pneumococcal antigenpending On Rocephin since 07/30. #3 Infectious disease following, Dr. Camargo HEME: Thrombocytopenia Suspect consumptive secondary to sepsis ENDO: Diabetes mellitus Glucose is not at target. Increase NovoLog medium dose sliding scale every 4 hours. Hold repaglinide Hold metformin Hold Januvia Check TSH PROPH: Eliquis will provide DVT prophylaxis. Protonix 40 mg p.o. daily for stress ulcer prophylaxis ACCESS: Peripheral IV FULL CODE Level 3 consult. (12) Diabetes mellitus with hyperglycemia Qualifiers: Diabetes mellitus type: type 2
[2018-08-01 19:08] LABS: Amorphous Sediment,Urine Rare /hpf; Bilirubin,Urine Negative (Negative); Clarity,Urine Hazy (Clear); Color,Urine Yellow (Yellw/Straw); Glucose,Urine (UA) 500 or Greater mg/dL (Negative); Leukocyte Esterase,Urine Small (Negative); Nitrite,Urine Negative (Negative); Specific Gravity,Urine 1.017 (1.002-1.035); Squamous Epithelial Cell,Urine 1 /hpf (0-5)
[2018-08-01 19:26] LABS: Phosphorus 1.8 mg/dL (2.5-4.9)
[2018-08-01] MEDS ORDERED: Dextrose 50% in Water 50 ML Vial IV.PUSH PRN (23:05)
[2018-08-01 23:47] LABS: Calcium 8.2 mg/dL (8.5-10.1); Carbon Dioxide 21.3 meq/L (21.0-32.0); Potassium 3.8 meq/L (3.5-5.1)
[2018-08-02] MEDS: Metoprolol Tartrate 25 MG Tablet PO SCH ×3 (00:10→23:18)
[2018-08-02] MEDS: Insulin NovoLOG Aspart Correctional Sugar Inj SQ SCH ×7 (00:56→23:18)
[2018-08-02 02:15] LABS: Thyroid Stimulating Hormone 1.25 uIU/mL (0.358-3.740)
[2018-08-02] MEDS ORDERED: Digoxin Inj 500 MCG/2 ML Ampul IV.PUSH ONE (03:00)
[2018-08-02 03:30] LABS: Baso % (Auto) 0.2 % (0.0-2.0); Eos # (Auto) 0.1 th/mm3 (0.0-0.4); Eos % (Auto) 0.6 % (0.0-4.0); Hematocrit 29.9 % (35.0-46.0); Hemoglobin 10.4 gm/dL (11.6-15.3); Lymph # (Auto) 0.5 th/mm3 (1.0-4.8); Lymph % (Auto) 2.8 % (9.0-44.0); Mean Corpuscular HGB Conc 34.8 % (32.0-36.0); Mean Corpuscular Hemoglobin 33.7 pg (27.0-34.0); Mean Corpuscular Volume 96.8 fL (80.0-100.0); Mean Platelet Volume 10.6 fL (7.0-11.0); Mono # (Auto) 1.4 th/mm3 (0.0-0.9); Mono % (Auto) 7.8 % (0.0-8.0); Neut # (Auto) 16.5 th/mm3 (1.8-7.7); Neut % (Auto) 88.6 % (16.0-70.0); Platelet Count 112 th/mm3 (150-450); Red Blood Count 3.08 mil/mm3 (4.00-5.30); Red Cell Distribution Width 13.9 % (11.6-17.2); White Blood Count 18.7 th/mm3 (4.0-11.0)
[2018-08-02 04:04] LABS: Calcium 8.2 mg/dL (8.5-10.1); Carbon Dioxide 22.1 meq/L (21.0-32.0); Magnesium 2.1 mg/dL (1.5-2.5); Potassium 4.3 meq/L (3.5-5.1)
--- NOTE | 2018-08-02 06:57 | XR ---
EXAM DATE: 08/02/2018 6:21 AM EST AGE/SEX: 83 years / Female INDICATIONS: Shortness of breath, possible pulmonary edema. CLINICAL DATA: This is the patient's subsequent encounter. Patient reports that signs and symptoms h ave been present for 4 - 6 days and indicates a pain score of Nonresponsive. MEDICAL/SURGICAL HISTORY: Diabetes. Hypercholesterolemia. Hypertension. Hysterectomy. COMPARISON: [facility] [place], CHEST 1V SINGLE AP, 08/01/2018. . FINDINGS: A single AP semierect view of the chest was obtained. The study remains mid inspiratory with crowding of the lung vasculature. Hazy perihilar and bibasilar opacities remain. The left hemidiaphragm remai ns obscured and the left costophrenic angle appears mildly blunted. The heart size appears mildly pro minent. The bony thorax remains intact. CONCLUSION: No significant change. Electronically signed by: Rock Dubois MD Board Certified Radiologist 08/02/2018 6:56 AM EST
--- NOTE | 2018-08-02 08:20 | P.PNCA ---
Subjective Interval history: Pt doing great; rate controlled AF Medications and Allergies Active Medications: Active Medications Acetaminophen (Tylenol) 650 mg PO Q4H PRN PRN Reason: fever/pain Last Admin: 08/01/18 17:51 Dose: 650 mg Apixaban (Eliquis) 2.5 mg PO BID [facility] Last Admin: 08/01/18 21:13 Dose: 2.5 mg Dextrose (D50w Vial) 50 ml IV.PUSH UNSCH PRN PRN Reason: PER HYPOGLYCEMIA PROTOCOL Digoxin (Lanoxin) 125 mcg PO DAILY [facility] Diltiazem HCl (Cardizem) 30 mg PO QID [facility] Last Admin: 08/01/18 21:13 Dose: 30 mg Glucagon (Glucagon Inj) 1 mg OTHER PRN PRN PRN Reason: for Hypoglycemia Protocol Diltiazem HCl 125 mg/ Sodium (Chloride) 125 mls @ 5 mls/hr IV.CONT TITRATE PRN ; Protocol PRN Reason: Per Protocol Last Titration: 08/01/18 18:45 Dose: Infused Magnesium Sulfate 4 gm/ Sodium (Chloride) 100 mls @ 50 mls/hr IV.SIG UNSCH PRN PRN Reason: For Magnesium 0.9 - 1.1 mg/dL Magnesium Sulfate 2 gm/ Sodium (Chloride) 100 mls @ 50 mls/hr IV.SIG UNSCH PRN PRN Reason: For Magnesium 1.2 - 1.6 mg/dL Last Infusion: 08/01/18 13:54 Dose: Infused Potassium Chloride (Kcl 40 Meq Premix Inj) 40 meq in 100 mls @ 25 mls/hr IV.SIG Q2H PRN PRN Reason: For Potassium 2.8 - 3.2 mEq/L Potassium Chloride (Kcl 20 Meq Premix Inj) 20 meq in 100 mls @ 50 mls/hr IV.SIG Q2H PRN PRN Reason: For Potassium 3.3 - 3.5 mEq/L Last Infusion: 08/02/18 01:01 Dose: Infused Potassium Chloride (Kcl 40 Meq Premix Inj) 40 meq in 100 mls @ 25 mls/hr IV.SIG UNSCH PRN PRN Reason: For Potassium 3.3 - 3.5 mEq/L Potassium Chloride (Kcl 20 Meq Premix Inj) 20 meq in 100 mls @ 50 mls/hr IV.SIG Q2H PRN PRN Reason: For Potassium 2.8 - 3.2 mEq/L Last Infusion: 08/01/18 13:53 Dose: Infused Potassium Phosphate 30 mmol/ (Sodium Chloride) 260 mls @ 42 mls/hr IV.SIG UNSCH PRN PRN Reason: SEE LABEL COMMENTS Sodium Phosphate 30 mmol/ (Sodium Chloride) 260 mls @ 42 mls/hr IV.SIG UNSCH PRN PRN Reason: For Phosphorus < 2.5 mg/dL Ceftriaxone Sodium 1,000 mg/ (Sodium Chloride) 100 mls @ 200 mls/hr IV.SIG Q12H [facility] Last Admin: 08/02/18 07:59 Dose: 200 mls/hr Lactated Ringer's (Lr 1000 Ml Inj) 1,000 mls @ 84 mls/hr IV.CONT .[id number] [facility] Last Infusion: 08/02/18 07:19 Dose: Infused Insulin Aspart (Novolog Insulin Correctional Sugar Inj) 0 unit SQ Q4H [facility]; Protocol Last Admin: 08/02/18 07:20 Dose: 2 unit Magnesium Oxide (Mag-Ox) 800 mg PO UNSCH PRN PRN Reason: For Magnesium 1.2 - 1.6 mg/dL Metoprolol Tartrate (Lopressor) 25 mg PO Q12H [facility] Last Admin: 08/02/18 00:10 Dose: 25 mg Ondansetron HCl (Zofran Inj) 4 mg IV.PUSH Q6H PRN PRN Reason: NAUSEA OR VOMITING Pantoprazole Sodium (Protonix) 40 mg PO DAILY [facility] Potassium Bicarb/Potassium Chloride (K-Lyte Cl Eff) 50 meq PO UNSCH PRN PRN Reason: For Potassium 3.3 - 3.5 mEq/L Potassium Phosphate (K-Phos Original) 2,000 mg PO Q4H PRN PRN Reason: Phosphorus Less Than 2.5 mg/dL Potassium Phosphate (K-Phos Original) 2,000 mg PO UNSCH PRN PRN Reason: SEE LABEL COMMENTS Pravastatin Sodium (Pravachol) 80 mg PO QPM [facility] Sodium Chloride (Ns Flush) 2 ml IV.FLUSH BID [facility] Last Admin: 08/01/18 21:42 Dose: 2 ml Sodium Chloride (Ns Flush) 2 ml IV.FLUSH PRN PRN PRN Reason: FLUSH AFTER USING IV ACCESS Allergies Allergy/AdvReac Type Severity Reaction Status Date / Time penicillin G Allergy Severe Hives Verified 07/30/18 14:31 Home Medications Medication Instructions Recorded Confirmed Type metformin 500 mg PO BID 07/30/18 07/30/18 History metoprolol tartrate 50 mg PO BID 07/30/18 07/30/18 History repaglinide 1 mg PO TID 07/30/18 07/30/18 History simvastatin 40 mg PO QPM 07/30/18 07/30/18 History sitagliptin [Januvia] 100 mg PO DAILY 07/30/18 07/30/18 History verapamil 240 mg PO QAM 07/30/18 07/30/18 History Physical Exam Vital signs: Vital Signs 08/01/18 10:00 08/01/18 12:00 08/01/18 14:00 Temperature Pulse Rate 146 H 95 H 145 H Respiratory Rate Blood Pressure Pulse Oximetry 08/01/18 15:04 08/01/18 15:30 08/01/18 16:00 Temperature 99.0 F Pulse Rate 106 H 111 H 91 H Respiratory Rate 30 H 30 H 31 H Blood Pressure 116/70 Pulse Oximetry 98 97 96 08/01/18 16:01 08/01/18 16:30 08/01/18 17:00 Temperature Pulse Rate 88 95 H 165 H Respiratory Rate 34 H 33 H 49 H Blood Pressure 143/65 H 143/63 H Pulse Oximetry 92 L 96 95 08/01/18 17:01 08/01/18 17:30 08/01/18 18:00 Temperature Pulse Rate 165 H 125 H 131 H Respiratory Rate 57 H 38 H 38 H Blood Pressure 139/120 H 119/69 141/65 H Pulse Oximetry 83 L 94 L 96 08/01/18 18:30 08/01/18 19:00 08/01/18 19:20 Temperature Pulse Rate 120 H 150 H Respiratory Rate 31 H 30 H Blood Pressure 113/54 L 115/59 L Pulse Oximetry 98 99 98 08/01/18 19:30 08/01/18 20:00 08/01/18 20:30 Temperature 98.0 F Pulse Rate 101 H 84 92 H Respiratory Rate 29 H 20 29 H Blood Pressure 95/50 L 109/56 L 92/54 L Pulse Oximetry 98 98 98 08/01/18 21:00 08/01/18 21:12 08/01/18 21:30 Temperature Pulse Rate 92 H 101 H 100 H Respiratory Rate 29 H 29 H 27 H Blood Pressure 107/55 L 111/57 L Pulse Oximetry 97 98 98 08/01/18 22:00 08/01/18 22:30 08/01/18 23:00 Temperature Pulse Rate 78 84 77 Respiratory Rate 29 H 29 H 26 H Blood Pressure 113/53 L 111/58 L 105/51 L Pulse Oximetry 98 99 98 08/01/18 23:30 08/02/18 00:00 08/02/18 00:30 Temperature 97.4 F L Pulse Rate 76 78 77 Respiratory Rate 25 H 23 25 H Blood Pressure 134/58 L 126/61 106/56 L Pulse Oximetry 99 99 99 08/02/18 01:00 08/02/18 01:01 08/02/18 01:31 Temperature Pulse Rate 74 78 65 Respiratory Rate 25 H 24 23 Blood Pressure 136/61 97/52 L Pulse Oximetry 99 99 100 08/02/18 02:00 08/02/18 02:30 08/02/18 03:00 Temperature Pulse Rate 67 69 71 Respiratory Rate 23 26 H 33 H Blood Pressure 102/62 119/58 L Pulse Oximetry 100 100 96 08/02/18 03:20 08/02/18 03:30 08/02/18 04:00 Temperature 98.8 F Pulse Rate 75 71 73 Respiratory Rate 24 26 H 27 H Blood Pressure 131/58 L 134/60 113/58 L Pulse Oximetry 100 99 98 08/02/18 04:30 08/02/18 05:00 08/02/18 05:30 Temperature Pulse Rate 79 81 83 Respiratory Rate 27 H 25 H 23 Blood Pressure 130/60 135/60 149/64 H Pulse Oximetry 99 99 98 08/02/18 06:00 08/02/18 06:30 08/02/18 07:00 Temperature Pulse Rate 82 78 83 Respiratory Rate 26 H 25 H 25 H Blood Pressure 135/61 125/58 L 140/65 Pulse Oximetry 98 99 99 Intake & Output 08/01/18 08/02/18 08/02/18 18:59 06:59 18:59 Intake Total 1525 / 1525 800 / 800 1360 / 1360 Output Total 300 / 300 Balance 1525 / 1525 800 / 800 1060 / 1060 Weight 59.6 kg 61 kg Intake: IV 1525 / 1525 800 / 800 1000 / 1000 LR 1000 mL Inj 1,000 ML @ 84 1000 / 1000 mls/hr IV.CONT .[id number] [facility] Rx# :[id number] NS Inj 1,000 ML @ 120 mls/hr IV 1000 / 1000 500 / 500 .CONT .Q8H20M [facility] Rx#:[id number] Cardizem Inj 125 MG In NS Inj 125 / 125 100 ML @ 5 MG/HR 5 mls/hr IV. CONT TITRATE PRN Rx#:[id number] Magnesium Sulfate Inj 2 GM In 100 / 100 NS Inj 96 ML @ 50 mls/hr IV.SIG UNSCH PRN Rx#:[id number] KCl 20 mEq Premix Inj 20 meq In 200 / 200 200 / 200 100 ml @ 50 mls/hr IV.SIG Q2H PRN Rx#:[id number] Rocephin Inj 1,000 MG In NS Inj 100 / 100 100 / 100 100 ML @ 200 mls/hr IV.SIG Q12H [facility] Rx#:[id number] Oral 360 / 360 Output: Urine 300 / 300 Other: # Incontinent Voids 5 3 Date of Last Bowel Movement 08/02/18 # Incontinent Bowel Movements 1 - Constitutional no acute distress - Routine HEENT Exam Head: Present: normocephalic Eye: Present: EOMI ENT: Present: mucous membranes moist - Routine Neck Exam Present: supple - Routine Respiratory Exam Absent: accessory muscle use - Routine Cardiovascular Exam Present: irregularly irregular - Routine Abdominal Exam Present: soft - Routine Extremities Exam Absent: edema Results 08/02/18 02:52 08/02/18 02:52 CBC 08/01/18 08/02/18 Range/Units 06:37 02:52 WBC 17.2 H 18.7 H (4.0-11.0) th/mm3 RBC 3.29 L 3.08 L (4.00-5.30) mil/mm3 Hgb 10.9 L 10.4 L (11.6-15.3) gm/dL Hct 32.6 L 29.9 L (35.0-46.0) % Plt Count 96 L 112 L (150-450) th/mm3 Neut # (Auto) 15.8 H 16.5 H (1.8-7.7) th/mm3 Lymph # (Auto) 0.4 L 0.5 L (1.0-4.8) th/mm3 Robertson # (Auto) 0.6 1.4 H (0.0-0.9) th/mm3 Eos # (Auto) 0.1 0.1 (0.0-0.4) th/mm3 Baso # (Auto) 0.2 0.0 (0.0-0.2) th/mm3 Comprehensive Metabolic Panel 08/01/18 08/01/18 08/02/18 Range/Units 06:37 23:27 02:52 Sodium 137 138 138 (136-145) meq/L Potassium 3.1 L D 3.8 4.3 (3.5-5.1) meq/L Chloride 106 D 109 H 110 H (98-107) meq/L Carbon Dioxide 17.7 L 21.3 22.1 (21.0-32.0) meq/L BUN 26 H 25 H 24 H (7-18) mg/dL Creatinine 1.04 H 1.09 H 0.97 (0.50-1.00) mg/dL Calcium 8.2 L D 8.2 L 8.2 L (8.5-10.1) mg/dL Intake and Output 08/01/18 08/02/18 08/02/18 22:59 06:59 14:59 Intake Total 825 / 825 200 / 200 1360 / 1360 Output Total 300 / 300 Balance 825 / 825 200 / 200 1060 / 1060 Intake: IV 825 / 825 200 / 200 1000 / 1000 LR 1000 mL Inj 1,000 ML @ 84 1000 / 1000 mls/hr IV.CONT .[id number] [facility] Rx# :[id number] NS Inj 1,000 ML @ 120 mls/hr IV 500 / 500 .CONT .Q8H20M [facility] Rx#:[id number] Cardizem Inj 125 MG In NS Inj 125 / 125 100 ML @ 5 MG/HR 5 mls/hr IV. CONT TITRATE PRN Rx#:[id number] KCl 20 mEq Premix Inj 20 meq In 200 / 200 100 / 100 100 ml @ 50 mls/hr IV.SIG Q2H PRN Rx#:[id number] Rocephin Inj 1,000 MG In NS Inj 100 / 100 100 ML @ 200 mls/hr IV.SIG Q12H [facility] Rx#:[id number] Oral 360 / 360 Output: Urine 300 / 300 Other: # Incontinent Voids 3 Date of Last Bowel Movement 08/02/18 # Incontinent Bowel Movements 1 Weight 61 kg - Imaging and Cardiology Imaging: Impressions Abdomen X-Ray 07/31/18 00:00 CONCLUSION: Left double pigtail ureteral stent catheter. Chest X-Ray 08/01/18 00:00 CONCLUSION: Left lung base opacity is present may be due to a combination of consolidation and or pleural effusion, mild pulmonary edema . Chest X-Ray 08/02/18 11:20 CONCLUSION: No significant change. Assessment and Plan - Assessment (1) Atrial fibrillation with RVR Code(s): I48.91 - Unspecified atrial fibrillation Status: Acute Plan: Rate controlled on oral meds, now of cardizem ggt, on eliquis. Now actually hypertensive. will change oral diltiazem to long acting; if HTN remains could consider changing digoxin to something else at a later time. Echo pending. Cardiac issues stable, will be available as needed from here, please call with questions. She can see me in the office in 1-2 weeks.
[2018-08-02] MEDS ORDERED: dilTIAZem CD 120 MG Capsule PO ONE (08:21)
--- NOTE | 2018-08-02 09:51 | P.PNCC ---
Subjective Subjective Remarks/Hospital Course: 08/02: Afebrile. A. fib now rate controlled. IV Cardizem was discontinued patient continues on digoxin and p.o. Cardizem. The patient was started on Eliquis. Urine culture revealed Klebsiella the patient continues on ceftriaxone 1 g twice daily. Patient tolerating diet. IVs fluids continued at 84 cc an hour. Objective Vital Signs / I&O: Vital Signs 08/01/18 10:00 08/01/18 12:00 08/01/18 14:00 Temperature Pulse Rate 146 H 95 H 145 H Respiratory Rate Blood Pressure Pulse Oximetry 08/01/18 15:04 08/01/18 15:30 08/01/18 16:00 Temperature 99.0 F Pulse Rate 106 H 111 H 91 H Respiratory Rate 30 H 30 H 31 H Blood Pressure 116/70 Pulse Oximetry 98 97 96 08/01/18 16:01 08/01/18 16:30 08/01/18 17:00 Temperature Pulse Rate 88 95 H 165 H Respiratory Rate 34 H 33 H 49 H Blood Pressure 143/65 H 143/63 H Pulse Oximetry 92 L 96 95 08/01/18 17:01 08/01/18 17:30 08/01/18 18:00 Temperature Pulse Rate 165 H 125 H 131 H Respiratory Rate 57 H 38 H 38 H Blood Pressure 139/120 H 119/69 141/65 H Pulse Oximetry 83 L 94 L 96 08/01/18 18:30 08/01/18 19:00 08/01/18 19:20 Temperature Pulse Rate 120 H 150 H Respiratory Rate 31 H 30 H Blood Pressure 113/54 L 115/59 L Pulse Oximetry 98 99 98 08/01/18 19:30 08/01/18 20:00 08/01/18 20:30 Temperature 98.0 F Pulse Rate 101 H 84 92 H Respiratory Rate 29 H 20 29 H Blood Pressure 95/50 L 109/56 L 92/54 L Pulse Oximetry 98 98 98 08/01/18 21:00 08/01/18 21:12 08/01/18 21:30 Temperature Pulse Rate 92 H 101 H 100 H Respiratory Rate 29 H 29 H 27 H Blood Pressure 107/55 L 111/57 L Pulse Oximetry 97 98 98 08/01/18 22:00 08/01/18 22:30 08/01/18 23:00 Temperature Pulse Rate 78 84 77 Respiratory Rate 29 H 29 H 26 H Blood Pressure 113/53 L 111/58 L 105/51 L Pulse Oximetry 98 99 98 08/01/18 23:30 08/02/18 00:00 08/02/18 00:30 Temperature 97.4 F L Pulse Rate 76 78 77 Respiratory Rate 25 H 23 25 H Blood Pressure 134/58 L 126/61 106/56 L Pulse Oximetry 99 99 99 08/02/18 01:00 08/02/18 01:01 08/02/18 01:31 Temperature Pulse Rate 74 78 65 Respiratory Rate 25 H 24 23 Blood Pressure 136/61 97/52 L Pulse Oximetry 99 99 100 08/02/18 02:00 08/02/18 02:30 08/02/18 03:00 Temperature Pulse Rate 67 69 71 Respiratory Rate 23 26 H 33 H Blood Pressure 102/62 119/58 L Pulse Oximetry 100 100 96 08/02/18 03:20 08/02/18 03:30 08/02/18 04:00 Temperature 98.8 F Pulse Rate 75 71 73 Respiratory Rate 24 26 H 27 H Blood Pressure 131/58 L 134/60 113/58 L Pulse Oximetry 100 99 98 08/02/18 04:30 08/02/18 05:00 08/02/18 05:30 Temperature Pulse Rate 79 81 83 Respiratory Rate 27 H 25 H 23 Blood Pressure 130/60 135/60 149/64 H Pulse Oximetry 99 99 98 08/02/18 06:00 08/02/18 06:30 08/02/18 07:00 Temperature Pulse Rate 82 78 83 Respiratory Rate 26 H 25 H 25 H Blood Pressure 135/61 125/58 L 140/65 Pulse Oximetry 98 99 99 08/02/18 08:20 Temperature Pulse Rate Respiratory Rate Blood Pressure Pulse Oximetry 100 Intake & Output 08/01/18 08/02/18 08/02/18 18:59 06:59 18:59 Intake Total 1525 / 1525 800 / 800 1460 / 1460 Output Total 300 / 300 Balance 1525 / 1525 800 / 800 1160 / 1160 Weight 59.6 kg 61 kg Intake: IV 1525 / 1525 800 / 800 1100 / 1100 LR 1000 mL Inj 1,000 ML @ 84 1000 / 1000 mls/hr IV.CONT .[id number] [facility] Rx# :[id number] NS Inj 1,000 ML @ 120 mls/hr IV 1000 / 1000 500 / 500 .CONT .[id number] [facility] Rx#:[id number] Cardizem Inj 125 MG In NS Inj 125 / 125 100 ML @ 5 MG/HR 5 mls/hr IV. CONT TITRATE PRN Rx#:[id number] Magnesium Sulfate Inj 2 GM In 100 / 100 NS Inj 96 ML @ 50 mls/hr IV.SIG UNSCH PRN Rx#:[id number] KCl 20 mEq Premix Inj 20 meq In 200 / 200 200 / 200 100 ml @ 50 mls/hr IV.SIG Q2H PRN Rx#:[id number] Rocephin Inj 1,000 MG In NS Inj 100 / 100 100 / 100 100 / 100 100 ML @ 200 mls/hr IV.SIG Q12H [facility] Rx#:[id number] Oral 360 / 360 Output: Urine 300 / 300 Other: # Incontinent Voids 5 3 Date of Last Bowel Movement 08/02/18 # Incontinent Bowel Movements 1 Result Diagrams: 08/02/18 02:52 08/02/18 08:01 Other Results: Laboratory Results CBC w Diff Slide review pending 07/30/18 14:45 WBC 18.7 th/mm3 (4.0-11.0) H 08/02/18 02:52 RBC 3.08 mil/mm3 (4.00-5.30) L 08/02/18 02:52 Hgb 10.4 gm/dL (11.6-15.3) L 08/02/18 02:52 Hct 29.9 % (35.0-46.0) L 08/02/18 02:52 MCV 96.8 fL (80.0-100.0) 08/02/18 02:52 MCH 33.7 pg (27.0-34.0) 08/02/18 02:52 MCHC 34.8 % (32.0-36.0) 08/02/18 02:52 RDW 13.9 % (11.6-17.2) 08/02/18 02:52 Plt Count 112 th/mm3 (150-450) L 08/02/18 02:52 MPV 10.6 fL (7.0-11.0) 08/02/18 02:52 Prelim Diff (Auto) Slide review pending 08/01/18 06:37 Neut % (Auto) 88.6 % (16.0-70.0) H 08/02/18 02:52 Lymph % (Auto) 2.8 % (9.0-44.0) L 08/02/18 02:52 [place] % (Auto) 7.8 % (0.0-8.0) 08/02/18 02:52 Eos % (Auto) 0.6 % (0.0-4.0) 08/02/18 02:52 Baso % (Auto) 0.2 % (0.0-2.0) 08/02/18 02:52 Neut # (Auto) 16.5 th/mm3 (1.8-7.7) H 08/02/18 02:52 Lymph # (Auto) 0.5 th/mm3 (1.0-4.8) L 08/02/18 02:52 [place] # (Auto) 1.4 th/mm3 (0.0-0.9) H 08/02/18 02:52 Eos # (Auto) 0.1 th/mm3 (0.0-0.4) 08/02/18 02:52 Baso # (Auto) 0.0 th/mm3 (0.0-0.2) 08/02/18 02:52 WBC Differential . 08/02/18 02:52 Diff Scan Auto diff confirmed 07/30/18 14:45 Seg Neuts % (Manual) 66 % (16-70) 08/01/18 06:37 Band Neuts % (Manual) 27 % (0-6) H 08/01/18 06:37 Lymphocytes % (Manual) 1 % (9-44) L 08/01/18 06:37 Monocytes % (Manual) 6 % (0-8) 08/01/18 06:37 Abs Neuts (Manual) 16.0 th/mm3 (1.8-7.7) H 08/01/18 06:37 Differential Comment Auto diff final 08/02/18 02:52 Toxic Granulation 2+ (None) H 08/01/18 06:37 Dohle Bodies Present (None) H 07/30/18 14:45 Platelet Estimate Low (Normal) L 08/01/18 06:37 Platelet Morphology Normal (Normal) 08/01/18 06:37 Puncture Site Left radial 08/01/18 17:02 Patient Temperature 98.6 08/01/18 17:02 O2 Saturation 90 % (90-100) 08/01/18 17:02 ABG pH 7.40 (7.380-7.420) 08/01/18 17:02 ABG pCO2 20 mmHg (38-42) L* 08/01/18 17:02 ABG pO2 64 mmHG (61-120) 08/01/18 17:02 ABG HCO3 13 mmol/L (22-26) L* 08/01/18 17:02 ABG O2 Content 16.9 Vol % (12.0-20.0) 08/01/18 17:02 ABG Base Excess -11.4 mmol/L (-2-2) L 08/01/18 17:02 ABG Methemoglobin 1.6 % (0-2) 08/01/18 17:02 Carlos Test Present 08/01/18 17:02 Hemoglobin 13.3 G/DL (12.0-16.0) 08/01/18 17:02 Carboxyhemoglobin 0.8 % (0-4) 08/01/18 17:02 O2 Delivery Device Nasal cannula 08/01/18 17:02 Liter Flow 3.00 L/M 08/01/18 17:02 Inspired O2 32 % 08/01/18 17:02 Critical Value Yes 08/01/18 17:02 Sodium 138 meq/L (136-145) 08/02/18 02:52 Potassium 4.1 meq/L (3.5-5.1) 08/02/18 08:01 Chloride 110 meq/L (98-107) H 08/02/18 02:52 Carbon Dioxide 22.1 meq/L (21.0-32.0) 08/02/18 02:52 Anion Gap 6 meq/L (5-15) 08/02/18 02:52 BUN 24 mg/dL (7-18) H 08/02/18 02:52 Creatinine 0.97 mg/dL (0.50-1.00) 08/02/18 02:52 Estimated GFR 55 mL/min (>89) L 08/02/18 02:52 POC Glucose 171 mg/dl (68-110) H 08/02/18 06:59 Random Glucose 172 mg/dL (74-106) H 08/02/18 02:52 Lactic Acid 1.5 mmol/L (0.4-2.0) 08/02/18 02:52 Calcium 8.2 mg/dL (8.5-10.1) L 08/02/18 02:52 Phosphorus 1.8 mg/dL (2.5-4.9) L 08/01/18 06:37 Magnesium 2.1 mg/dL (1.5-2.5) 08/02/18 02:52 Total Bilirubin 1.2 mg/dL (0.2-1.0) H 07/30/18 16:40 AST 29 U/L (15-37) 07/30/18 16:40 ALT 28 U/L (10-53) 07/30/18 16:40 Alkaline Phosphatase 72 U/L (45-117) 07/30/18 16:40 Total Protein 6.8 g/dL (6.4-8.2) 07/30/18 16:40 Albumin 2.2 g/dL (3.4-5.0) L 07/30/18 16:40 Lipase 140 U/L (73-393) 07/30/18 16:40 TSH 1.250 uIU/mL (0.358-3.740) 08/01/18 23:27 Urine Color Yellow (Yellw/Straw) 08/01/18 18:30 Urine Clarity Hazy (Clear) H 08/01/18 18:30 Urine pH 6.0 (5.0-8.5) 08/01/18 18:30 Ur Specific Rawson 1.017 (1.002-1.035) 08/01/18 18:30 Urine Protein 100 mg/dL (Neg-Trace) H 08/01/18 18:30 Urine Glucose (UA) 500 or greater mg/dL (Negative) 08/01/18 18:30 Urine Ketones 20 mg/dL (Negative) 08/01/18 18:30 Urine Occult Blood Large (Negative) H 08/01/18 18:30 Urine Nitrate Negative (Negative) 08/01/18 18:30 Urine Bilirubin Negative (Negative) 08/01/18 18:30 Urine Ictotest Negative (Negative) 07/30/18 14:30 Urine Urobilinogen Less than 2 mg/dL (Less than 2) 08/01/18 18:30 Ur Leukocyte Esterase Small (Negative) H 08/01/18 18:30 Urine RBC /hpf (0-3) 08/01/18 18:30 Urine WBC /hpf (0-5) 08/01/18 18:30 Urine WBC Clumps Many (None) H 07/30/18 14:30 Ur Squamous Epith Cells 1 /hpf (0-5) 08/01/18 18:30 Amorphous Sediment Rare /hpf (None) H 08/01/18 18:30 Urine Bacteria Many /hpf (None) H 07/30/18 14:30 Micro UA Comment Culture indicated 07/30/18 14:30 Ur Microscopic Review Not Reportable 08/01/18 18:30 Urine Culture Comments Culture indicated 07/30/18 14:30 Nasal Screen MRSA (PCR) Not detected (Negative) 08/01/18 08:19 Digoxin 3.5 ng/mL (0.8-2.0) H* D 08/01/18 16:39 Impressions Abdomen/Pelvis CT 07/30/18 17:13 CONCLUSION: 1. Small calculi are identified in the left renal collecting system and proximal ureter. There is mild hydronephrosis with perinephric stranding characteristic of obstructive uropathy. 2. Thick walled cyst off the lateral margin of mid left kidney. Cystic malignancy needs to be considered. 3. Uncomplicated colonic diverticulosis. 4. Fibrotic lung disease right lower lobe. 5. Status post hysterectomy and cholecystectomy. Abdomen/Bladder Ultrasound 07/30/18 18:40 CONCLUSION: 1. Mild left-sided hydronephrosis. Calyceal calculi noted on CT exam are not demonstrated on ultrasound. 2. 3.9 cm primarily hypoechoic exophytic cystic lesion arising from the mid left kidney. This corresponds to the thick walled cystic lesion on CT exam with adjacent stranding. There is no definite nodular component or evidence for vascularity. Differential considerations include hemorrhagic cyst versus secondarily infected cyst although cystic neoplasm is not entirely excluded by ultrasound. Multiphasic renal mass MRI or CT examination is recommended once patient's acute left-sided obstructive uropathy is resolved. Abdomen X-Ray 07/31/18 00:00 CONCLUSION: Left double pigtail ureteral stent catheter. Chest X-Ray 08/02/18 11:20 CONCLUSION: No significant change. Objective Remarks: GENERAL: Is a well-developed well-nourished elderly female in no acute distress SKIN: Warm and dry. HEAD: Atraumatic. Normocephalic. EYES: Pupils equal and round. No scleral icterus. No injection or drainage. ENT: No nasal bleeding or discharge. Mucous membranes pink and moist. Nasal cannula at 2 L/min NECK: Trachea midline. No JVD. CARDIOVASCULAR: Normal rate, regular rhythm. RESPIRATORY: No accessory muscle use. Clear to auscultation. Breath sounds equal bilaterally. GASTROINTESTINAL: Abdomen soft, non-tender, nondistended. No guarding. MUSCULOSKELETAL: Extremities without clubbing, cyanosis, or edema. No obvious deformities. NEUROLOGICAL: GCS 15 ,awake and alert. RASS 0. No gross focal/sensory deficits. Follows commands in all 4 extremities. Assessment and Plan - Problem List (1) Severe sepsis Code(s): A41.9 - Sepsis, unspecified organism; R65.20 - Severe sepsis without septic shock Status: Acute (2) Left ureteral calculus Code(s): N20.1 - Calculus of ureter Status: Acute Onset Date: ~07/28/18 (3) Hydronephrosis due to obstruction of ureter Code(s): N13.2 - Hydronephrosis with renal and ureteral calculous obstruction Status: Acute Onset Date: ~07/28/18 (4) Acute pyelonephritis Code(s): N10 - Acute pyelonephritis Status: Acute (5) Atrial fibrillation with RVR Code(s): I48.91 - Unspecified atrial fibrillation Status: Acute (6) Essential hypertension Code(s): I10 - Essential (primary) hypertension Status: Chronic (7) HLD (hyperlipidemia) Code(s): E78.5 - Hyperlipidemia, unspecified Status: Chronic (8) RONEY (acute kidney injury) Code(s): N17.9 - Acute kidney failure, unspecified Status: Acute (9) Leukocytosis Code(s): D72.829 - Elevated white blood cell count, unspecified Status: Acute (10) Thrombocytopenia Code(s): D69.6 - Thrombocytopenia, unspecified Status: Acute (11) Lactic acidosis Code(s): E87.2 - Acidosis Status: Acute (12) Diabetes mellitus with hyperglycemia Code(s): E11.65 - Type 2 diabetes mellitus with hyperglycemia Status: Acute (13) Left renal mass Code(s): N28.89 - Other specified disorders of kidney and ureter Status: Acute - Assessment and Plan Plan: NEURO: Tylenol as needed for pain RESP: Pulmonary edema IS q1 hour awake. NC wean as tolerated. 08/02 chest x-ray-lung base opacity combination of consolidation or pleural effusion with mild pulmonary edema CV: Atrial fibrillation with RVR Hypertension Hyperlipidemia Cardizem has been weaned off. Verapamil is on hold Continue metoprolol 25 mg p.o. every 12. Digoxin load has been ordered per cardiology and appears to be working well to control rate. A digoxin level was 3.5 at 16: 39 however this was drawn about an hour and a half after digoxin 500 mg IV therefore I would expect it to be falsely elevated. Will check repeat digoxin level after the load, 08/03 Eliquis 2.5 mg p.o. twice daily for anticoagulation for atrial fibrillation Continue statin, pravastatin 40 mg p.o. daily as a substitute for home simvastatin 40 mg p.o. daily Cardiology - Dr. Ellis-signed off Noted ABG with calculated bicarb of 13 and base deficit 11.4. Hgb 13.3. Clinically she looks better than ABG would suggest. She did have bibasilar rales and mild pulmonary edema on CXR however this is probably from diastolic dysfunction/Afib because she does not clinically look volume overloaded ( thirsty, no JVD, urine concentrated). Therefore, I am continuing fluids but changed to LR 84 ml/hr instead of 0.9 NaCl due to hyperchloremia. GI: Cardiac diet Had a bowel movement today 08/01. Bowel regimen Zofran for nausea FEN/RENAL/UROLOGY: 5-6 mm obstructing kidney stone left ureter Mild hydronephrosis Exophytic cystic mass left kidney Acute kidney injury She underwent cystoscopy with placement of left ureteral stent 07/31/[address] Brady Hawthorne Creatinine downtrending. Purewick catheter is in place. Monitoring intake and output Monitor electrolytes and replace as indicated per ICU electrolyte replacement protocol. F/u with urology outpatient for retrieval of stone/stent and evaluation of renal mass. ID: Severe sepsis Acute pyelonephritis complicated by obstructing stone Urine culture 13Klebsiella pneumoniae (sensitive to Rocephin) Blood culture 13no growth to date Repeat urine culture 4pending Repeat blood culture 15pending Influenza screenneg Urine Legionella pneumococcal antigennegative On Rocephin since 07/30. #4-Increased to BID renally dosed Infectious disease following, Dr. Camargo HEME: Thrombocytopenia Suspect consumptive secondary to sepsis ENDO: Diabetes mellitus Glucose is not at target. Increase NovoLog medium dose sliding scale every 4 hours. Hold repaglinide Hold metformin Hold Januvia F/U TSH PROPH: Eliquis will provide DVT prophylaxis. Protonix 40 mg p.o. daily for stress ulcer prophylaxis ACCESS: Peripheral IV FULL CODE Level 2 follow-up. Plan transfer to [facility] in a.m. Code Status: Full Discussed Condition With: Patient and HOUSEKEEPING LEAD at bedside (12) Diabetes mellitus with hyperglycemia Qualifiers: Diabetes mellitus type: type 2
--- NOTE | 2018-08-02 10:14 | ECHRPT ---
Indication: Atrial Fib and Flutter CONCLUSIONS Normal left ventricular size. Mild concentric left ventricular hypertrophy. The left ventricular systolic function is normal with an estimated ejection fraction in the range of 60-65%. Mild mitral valve regurgitation. Mitral annular calcification is present. Aortic valve sclerosis is present. There is mild tricuspid valve regurgitation. The estimated pulmonary arterial pressure is 43 mmHg. Trivial pulmonary valve regurgitation. A left sided pleural effusion is present. BP: 143 / 65 HR: 91 Rhythm: MEASUREMENTS (Male / Female) Normal Values Technical Quality:Technically difficult study 2D ECHO LV Diastolic Diameter PLAX 3.8 cm 4.2 - 5.9 / 3.9 - 5.3 cm LV Systolic Diameter PLAX 2.3 cm IVS Diastolic Thickness 1.2 cm 0.6 - 1.0 / 0.6 - 0.9 cm LVPW Diastolic Thickness 1.1 cm 0.6 - 1.0 / 0.6 - 0.9 cm LV Relative Wall Thickness 0.6 RV Internal Dim ED PLAX 2.8 cm LVOT Diameter 2.0 cm Aortic Root Diameter 3.1 cm LA Systolic Diameter LX 3.2 cm 3.0 - 4.0 / 2.7 - 3.8 cm DOPPLER AV Peak Velocity 112.0 cm/s AV Peak Gradient 5.0 mmHg LVOT Peak Velocity 96.9 cm/s LVOT Peak Gradient 3.8 mmHg AV Area Cont Eq pk 2.7 cm Mitral E Point Velocity 115.0 cm/s LV E' Lateral Velocity 14.5 cm/s Mitral E to LV E' Lateral Ratio 7.9 LV E' Septal Velocity 17.7 cm/s Mitral E to LV E' Septal Ratio 6.5 TR Peak Velocity 285.5 cm/s TR Peak Gradient 32.6 mmHg Right Atrial Pressure 10.0 mmHg Pulmonary Artery Systolic Pressu 42.6 mmHg Right Ventricular Systolic Press 42.6 mmHg PV Peak Velocity 100.0 cm/s PV Peak Gradient 4.0 mmHg FINDINGS LEFT VENTRICLE Normal left ventricular size. Mild concentric left ventricular hypertrophy. The left ventricular systolic function is normal with an estimated ejection fraction in the range of 60-65%. RIGHT VENTRICLE Normal right ventricular size and systolic function. LEFT ATRIUM The left atrial size is normal. RIGHT ATRIUM The right atrial size is normal. ATRIAL SEPTUM Normal atrial septal thickness without atrial level shunting by limited color doppler interrogation. AORTA The aortic root and proximal ascending aorta are normal in size on limited imaging. MITRAL VALVE Mild mitral valve regurgitation. Mitral annular calcification is present. AORTIC VALVE Trileaflet aortic valve. Aortic valve sclerosis is present. TRICUSPID VALVE There is mild tricuspid valve regurgitation. The estimated pulmonary arterial pressure is 43 mmHg. PULMONARY VALVE Trivial pulmonary valve regurgitation. VESSELS The inferior vena cava is normal in size. PERICARDIUM A left sided pleural effusion is present. Constantino Head MD (Electronically Signed) Final Date:02 August 2018 10:12
--- NOTE | 2018-08-02 14:18 | P.PNID ---
Subjective Remarks: ID Coverage This is an 83-year-old white female who presented to the emergency department on 07/30/2018 with nausea, vomiting and diarrhea. The patient reported that 4 days ago she developed sudden vomiting and also noted that she was having urinary hesitancy and marked decreased appetite. She denied chills or fever. She also developed pain across the lower back. She presented to the emergency department for evaluation. Temperature in the emergency department was 98.5, and later bertrand to 102.2 this morning. Blood cultures were taken and also urine culture was taken. Urinalysis revealed innumerable white cells. Consultation is requested for evaluation and management. The patient had a bladder ultrasound, which showed mild left-sided hydronephrosis and a 3.9 cm primarily hypoechoic exophytic cystic lesion arising from the mid left kidney. Also, there was adjacent stranding noted. White blood cell count elevated at 16.9. The patient also has acute kidney disease and her estimated GFR is 33. The patient denies other symptoms. Notes reviewed Temps ok Up in chair Had afib RVR , now rate controlled Had urology procedure 07/31 - has stent BC negative UC Klebsiella New UC post procedure - negative WBC higher at 18 Antibiotics: Rocephin Past Medical History: Hypercholesterolemia, diabetes mellitus, history of cholecystectomy, history of hysterectomy, history of bilateral knee surgery. Allergies/Adverse Reactions: Allergies penicillin G Allergy (Severe, Verified 07/30/18 14:31) Hives Objective Vital Signs 08/01/18 15:04 08/01/18 15:30 08/01/18 16:00 Temperature 99.0 F Pulse Rate 106 H 111 H 91 H Respiratory Rate 30 H 30 H 31 H Blood Pressure 116/70 Pulse Oximetry 98 97 96 08/01/18 16:01 08/01/18 16:30 08/01/18 17:00 Temperature Pulse Rate 88 95 H 165 H Respiratory Rate 34 H 33 H 49 H Blood Pressure 143/65 H 143/63 H Pulse Oximetry 92 L 96 95 08/01/18 17:01 08/01/18 17:30 08/01/18 18:00 Temperature Pulse Rate 165 H 125 H 131 H Respiratory Rate 57 H 38 H 38 H Blood Pressure 139/120 H 119/69 141/65 H Pulse Oximetry 83 L 94 L 96 08/01/18 18:30 08/01/18 19:00 08/01/18 19:20 Temperature Pulse Rate 120 H 150 H Respiratory Rate 31 H 30 H Blood Pressure 113/54 L 115/59 L Pulse Oximetry 98 99 98 08/01/18 19:30 08/01/18 20:00 08/01/18 20:30 Temperature 98.0 F Pulse Rate 101 H 84 92 H Respiratory Rate 29 H 20 29 H Blood Pressure 95/50 L 109/56 L 92/54 L Pulse Oximetry 98 98 98 08/01/18 21:00 08/01/18 21:12 08/01/18 21:30 Temperature Pulse Rate 92 H 101 H 100 H Respiratory Rate 29 H 29 H 27 H Blood Pressure 107/55 L 111/57 L Pulse Oximetry 97 98 98 08/01/18 22:00 08/01/18 22:30 08/01/18 23:00 Temperature Pulse Rate 78 84 77 Respiratory Rate 29 H 29 H 26 H Blood Pressure 113/53 L 111/58 L 105/51 L Pulse Oximetry 98 99 98 08/01/18 23:30 08/02/18 00:00 08/02/18 00:30 Temperature 97.4 F L Pulse Rate 76 78 77 Respiratory Rate 25 H 23 25 H Blood Pressure 134/58 L 126/61 106/56 L Pulse Oximetry 99 99 99 08/02/18 01:00 08/02/18 01:01 08/02/18 01:31 Temperature Pulse Rate 74 78 65 Respiratory Rate 25 H 24 23 Blood Pressure 136/61 97/52 L Pulse Oximetry 99 99 100 08/02/18 02:00 08/02/18 02:30 08/02/18 03:00 Temperature Pulse Rate 67 69 71 Respiratory Rate 23 26 H 33 H Blood Pressure 102/62 119/58 L Pulse Oximetry 100 100 96 08/02/18 03:20 08/02/18 03:30 08/02/18 04:00 Temperature 98.8 F Pulse Rate 75 71 73 Respiratory Rate 24 26 H 27 H Blood Pressure 131/58 L 134/60 113/58 L Pulse Oximetry 100 99 98 08/02/18 04:30 08/02/18 05:00 08/02/18 05:30 Temperature Pulse Rate 79 81 83 Respiratory Rate 27 H 25 H 23 Blood Pressure 130/60 135/60 149/64 H Pulse Oximetry 99 99 98 08/02/18 06:00 08/02/18 06:30 08/02/18 07:00 Temperature Pulse Rate 82 78 83 Respiratory Rate 26 H 25 H 25 H Blood Pressure 135/61 125/58 L 140/65 Pulse Oximetry 98 99 99 08/02/18 08:20 Temperature Pulse Rate Respiratory Rate Blood Pressure Pulse Oximetry 100 Intake & Output 08/01/18 08/02/18 08/02/18 18:59 06:59 18:59 Intake Total 1525 / 1525 800 / 800 1460 / 1460 Output Total 300 / 300 Balance 1525 / 1525 800 / 800 1160 / 1160 Weight 59.6 kg 61 kg Intake: IV 1525 / 1525 800 / 800 1100 / 1100 LR 1000 mL Inj 1,000 ML @ 84 1000 / 1000 mls/hr IV.CONT .[id number] ARI Rx# :[id number] NS Inj 1,000 ML @ 120 mls/hr IV 1000 / 1000 500 / 500 .CONT .[id number] RAI Rx#:[id number] Cardizem Inj 125 MG In NS Inj 125 / 125 100 ML @ 5 MG/HR 5 mls/hr IV. CONT TITRATE PRN Rx#:[id number] Magnesium Sulfate Inj 2 GM In 100 / 100 NS Inj 96 ML @ 50 mls/hr IV.SIG UNSCH PRN Rx#:[id number] KCl 20 mEq Premix Inj 20 meq In 200 / 200 200 / 200 100 ml @ 50 mls/hr IV.SIG Q2H PRN Rx#:[id number] Rocephin Inj 1,000 MG In NS Inj 100 / 100 100 / 100 100 / 100 100 ML @ 200 mls/hr IV.SIG Q12H [facility] Rx#:[id number] Oral 360 / 360 Output: Urine 300 / 300 Other: # Incontinent Voids 5 3 Date of Last Bowel Movement 08/02/18 # Incontinent Bowel Movements 1 07/31/18 18:41 Random Urine Urine Culture - Preliminary No growth in 24 hours 08/01/18 18:40 Blood - Peripheral Aerobic Blood Culture - Preliminary No growth in 1 day 08/01/18 18:40 Blood - Peripheral Anaerobic Blood Culture - Preliminary No growth in 1 day 08/01/18 18:45 Blood - Peripheral Aerobic Blood Culture - Preliminary No growth in 1 day 08/01/18 18:45 Blood - Peripheral Anaerobic Blood Culture - Preliminary No growth in 1 day 07/30/18 18:15 Blood - Peripheral Aerobic Blood Culture - Preliminary No growth in 3 days 07/30/18 18:15 Blood - Peripheral Anaerobic Blood Culture - Preliminary No growth in 3 days 07/30/18 18:25 Blood - Peripheral Aerobic Blood Culture - Preliminary No growth in 3 days 07/30/18 18:25 Blood - Peripheral Anaerobic Blood Culture - Preliminary No growth in 3 days 08/01/18 18:30 Urine - Clean Catch Urine Streptococcus pneumoniae Antigen ( M - Final Presumptive negative for streptococcus pneumoniae antigen, suggesting no current or recent infection. Infection due to Streptococcus pneumoniae cannot be ruled out since the antigen present in the sample may be below the detection limit of the test. 08/01/18 18:30 Urine - Clean Catch Urine Legionella Antigen - Final Presumptive negative for Legionella pneumophila serogroup 1 antigen in urine, suggesting no recent or recurrent infection. Infection due to Legionella cannot be ruled out since other serogroups and species may cause disease, antigen may not be present in urine in early infection, and the level of antigen present in the urine may be below the detection limit of the test. 08/01/18 04:10 Throat Group A Streptococcus Screen/Cult - Pending 08/01/18 04:10 Throat Group A Streptococcus Screen (GRACIELA) - Final 08/01/18 05:05 Nasal Wash Influenza Types A,B Antigen - Final Negative for FLU A and B antigen Infection due to influenza A or B cannot be ruled out since the antigen present in the sample may be below the detection limit of the test. 07/30/18 14:30 Clean Catch Urine Urine Culture - Final Klebsiella pneumoniae Lab - Hematology Results 08/01/18 08/02/18 06:37 02:52 WBC 17.2 H 18.7 H RBC 3.29 L 3.08 L Hgb 10.9 L 10.4 L Hct 32.6 L 29.9 L MCV 99.1 96.8 MCH 33.1 33.7 MCHC 33.4 34.8 RDW 13.9 13.9 Plt Count 96 L 112 L MPV 10.6 10.6 Prelim Diff (Auto) Slide review pending Neut % (Auto) 92.1 H 88.6 H Lymph % (Auto) 2.2 L 2.8 L Stewart % (Auto) 3.8 7.8 Eos % (Auto) 0.8 0.6 Baso % (Auto) 1.1 0.2 Neut # (Auto) 15.8 H 16.5 H Lymph # (Auto) 0.4 L 0.5 L Stewart # (Auto) 0.6 1.4 H Eos # (Auto) 0.1 0.1 Baso # (Auto) 0.2 0.0 WBC Differential Manual diff final . Seg Neuts % (Manual) 66 Band Neuts % (Manual) 27 H Lymphocytes % (Manual) 1 L Monocytes % (Manual) 6 Abs Neuts (Manual) 16.0 H Differential Comment . Auto diff final Toxic Granulation 2+ H Platelet Estimate Low L Platelet Morphology Normal Lab - Chemistry Results 07/31/18 07/31/18 08/01/18 17:48 21:53 06:37 Sodium 137 Potassium 3.1 L D Chloride 106 D Carbon Dioxide 17.7 L Anion Gap 13 BUN 26 H Creatinine 1.04 H Estimated GFR 51 L POC Glucose 247 H 168 H Random Glucose 195 H Lactic Acid Calcium 8.2 L D Phosphorus 1.8 L Magnesium 1.8 TSH 08/01/18 08/01/18 08/01/18 06:37 07:38 12:56 Sodium Potassium Chloride Carbon Dioxide Anion Gap BUN Creatinine Estimated GFR POC Glucose 237 H 245 H Random Glucose Lactic Acid Calcium Phosphorus Cancelled Magnesium TSH 08/01/18 08/01/18 08/01/18 18:04 18:40 21:31 Sodium Potassium Chloride Carbon Dioxide Anion Gap BUN Creatinine Estimated GFR POC Glucose 290 H 215 H Random Glucose Lactic Acid 2.5 H Calcium Phosphorus Magnesium TSH 08/01/18 08/01/18 08/02/18 22:33 23:27 00:54 Sodium 138 Potassium 3.8 Chloride 109 H Carbon Dioxide 21.3 Anion Gap 8 BUN 25 H Creatinine 1.09 H Estimated GFR 48 L POC Glucose 168 H Random Glucose 205 H Lactic Acid 1.9 Calcium 8.2 L Phosphorus Magnesium TSH 1.250 08/02/18 08/02/18 08/02/18 02:52 02:52 04:11 Sodium 138 Potassium 4.3 Chloride 110 H Carbon Dioxide 22.1 Anion Gap 6 BUN 24 H Creatinine 0.97 Estimated GFR 55 L POC Glucose 153 H Random Glucose 172 H Lactic Acid 1.5 Calcium 8.2 L Phosphorus Magnesium 2.1 TSH 08/02/18 08/02/18 08/02/18 06:59 08:01 11:46 Sodium Potassium 4.1 Chloride Carbon Dioxide Anion Gap BUN Creatinine Estimated GFR POC Glucose 171 H 254 H Random Glucose Lactic Acid Calcium Phosphorus Magnesium TSH Imaging: ITS Impressions Abdomen/Pelvis CT 07/30/18 17:13 CONCLUSION: 1. Small calculi are identified in the left renal collecting system and proximal ureter. There is mild hydronephrosis with perinephric stranding characteristic of obstructive uropathy. 2. Thick walled cyst off the lateral margin of mid left kidney. Cystic malignancy needs to be considered. 3. Uncomplicated colonic diverticulosis. 4. Fibrotic lung disease right lower lobe. 5. Status post hysterectomy and cholecystectomy. Abdomen/Bladder Ultrasound 07/30/18 18:40 CONCLUSION: 1. Mild left-sided hydronephrosis. Calyceal calculi noted on CT exam are not demonstrated on ultrasound. 2. 3.9 cm primarily hypoechoic exophytic cystic lesion arising from the mid left kidney. This corresponds to the thick walled cystic lesion on CT exam with adjacent stranding. There is no definite nodular component or evidence for vascularity. Differential considerations include hemorrhagic cyst versus secondarily infected cyst although cystic neoplasm is not entirely excluded by ultrasound. Multiphasic renal mass MRI or CT examination is recommended once patient's acute left-sided obstructive uropathy is resolved. Abdomen X-Ray 07/31/18 00:00 CONCLUSION: Left double pigtail ureteral stent catheter. Chest X-Ray 08/02/18 11:20 CONCLUSION: No significant change. Physical Exam: GENERAL: She is awake and alert and oriented. NAD, up in chair HEENT: Head atraumatic. Extraocular movements are grossly intact. Pupils reactive to light. No icterus. Oropharynx: Mucosa slightly dry. NECK: Supple without adenopathy or swelling. LUNGS: Clear, decreased breath sounds. HEART: Irregular rate and rhythm without murmurs, rubs or gallops. ABDOMEN: Bowel sounds present. Soft, no tenderness appreciated. Mildly distended. EXTREMITIES: No clubbing, cyanosis or edema. SKIN: No rash. Cool and dry NEUROLOGIC: No gross focal findings. PSYCHIATRIC: The patient is pleasant, calm and cooperative. Assessment and Plan - Plan IMPRESSION: Compliacted UTI - S/P stent Klebsiella UTI Possible sepsis due to source Acute kidney disease, stage III. Fever and leukocytosis secondary to infection. RECOMMENDATIONS: Continue ceftriaxone. Follow CBC Follow C/S Repeat UA and C/S post stent placement
--- NOTE | 2018-08-02 15:01 | P.PNIM ---
Subjective Interval history: 83 yo f admitted w uti and sepsis due to pyelonephritis and obstructing L proximal 5mm stone w hydronephrosis and exophytic L complex renal mass developed afib w rvr underwent cysto w stent placement, had persistent afib rvr w no symptoms and stable blood pressures s/p dig and lopressor wo response so transferred to MICU this morning due to HR in the 160s. Started on po cardizem and digoxin w better heart rate control, we are asked to assume her care once transferred back to medical floor. pt seen and examined, feels better still sob w coug, no cp, no nv, no fever, no hematuria Physical Exam Vital signs: Last Vital Signs Temp 98.8 F 08/02/18 04:00 Pulse 83 08/02/18 07:00 Resp 25 H 08/02/18 07:00 BP 140/65 08/02/18 07:00 Pulse Ox 100 08/02/18 08:20 Intake & Output 07/31/18 08/01/18 08/02/18 08/03/18 06:59 06:59 06:59 06:59 Intake Total 2100 / 2100 3340 / 3340 2325 / 2325 1460 / 1460 Output Total 450 / 450 300 / 300 Balance 2099 / 2099 2890 / 2890 2325 / 2325 1160 / 1160 Weight 60.45 kg 57.2 kg 61 kg wdwn pale 83 yo f aaox3 pleasant nad heart s1s2 reg w ectopy lungs coarse rales w decreased air movment abd soft nondt pos bs ext no edema ,no calf tenderness Results Labs CBC & Chem 7: 08/02/18 02:52 08/02/18 08:01 Labs: Microbiology 07/31/18 18:41 Random Urine Urine Culture - Preliminary No growth in 24 hours 08/01/18 18:40 Blood - Peripheral Aerobic Blood Culture - Preliminary No growth in 1 day 08/01/18 18:40 Blood - Peripheral Anaerobic Blood Culture - Preliminary No growth in 1 day 08/01/18 18:45 Blood - Peripheral Aerobic Blood Culture - Preliminary No growth in 1 day 08/01/18 18:45 Blood - Peripheral Anaerobic Blood Culture - Preliminary No growth in 1 day 07/30/18 18:15 Blood - Peripheral Aerobic Blood Culture - Preliminary No growth in 3 days 07/30/18 18:15 Blood - Peripheral Anaerobic Blood Culture - Preliminary No growth in 3 days 07/30/18 18:25 Blood - Peripheral Aerobic Blood Culture - Preliminary No growth in 3 days 07/30/18 18:25 Blood - Peripheral Anaerobic Blood Culture - Preliminary No growth in 3 days 08/01/18 18:30 Urine - Clean Catch Urine Streptococcus pneumoniae Antigen ( M - Final Presumptive negative for streptococcus pneumoniae antigen, suggesting no current or recent infection. Infection due to Streptococcus pneumoniae cannot be ruled out since the antigen present in the sample may be below the detection limit of the test. 08/01/18 18:30 Urine - Clean Catch Urine Legionella Antigen - Final Presumptive negative for Legionella pneumophila serogroup 1 antigen in urine, suggesting no recent or recurrent infection. Infection due to Legionella cannot be ruled out since other serogroups and species may cause disease, antigen may not be present in urine in early infection, and the level of antigen present in the urine may be below the detection limit of the test. 08/01/18 04:10 Throat Group A Streptococcus Screen (GRACIELA) - Final 08/01/18 05:05 Nasal Wash Influenza Types A,B Antigen - Final Negative for FLU A and B antigen Infection due to influenza A or B cannot be ruled out since the antigen present in the sample may be below the detection limit of the test. 07/30/18 14:30 Clean Catch Urine Urine Culture - Final Klebsiella pneumoniae Imaging Imaging: Impressions Chest X-Ray 08/01/18 00:00 CONCLUSION: Left lung base opacity is present may be due to a combination of consolidation and or pleural effusion, mild pulmonary edema . Chest X-Ray 08/02/18 11:20 CONCLUSION: No significant change. Assessment and Plan (1) Severe sepsis: Code(s): A41.9 - Sepsis, unspecified organism; R65.20 - Severe sepsis without septic shock Status: Acute (2) Left ureteral calculus: Code(s): N20.1 - Calculus of ureter Status: Acute Onset Date: ~07/28/18 (3) Hydronephrosis due to obstruction of ureter: Code(s): N13.2 - Hydronephrosis with renal and ureteral calculous obstruction Status: Acute Onset Date: ~07/28/18 (4) Acute pyelonephritis: Code(s): N10 - Acute pyelonephritis Status: Acute (5) Atrial fibrillation with RVR: Code(s): I48.91 - Unspecified atrial fibrillation Status: Acute (6) Essential hypertension: Code(s): I10 - Essential (primary) hypertension Status: Chronic (7) HLD (hyperlipidemia): Code(s): E78.5 - Hyperlipidemia, unspecified Status: Chronic (8) RONEY (acute kidney injury): Code(s): N17.9 - Acute kidney failure, unspecified Status: Acute (9) Leukocytosis: Code(s): D72.829 - Elevated white blood cell count, unspecified Status: Acute (10) Thrombocytopenia: Code(s): D69.6 - Thrombocytopenia, unspecified Status: Acute (11) Lactic acidosis: Code(s): E87.2 - Acidosis Status: Acute (12) Diabetes mellitus with hyperglycemia: Code(s): E11.65 - Type 2 diabetes mellitus with hyperglycemia Status: Acute (13) Left renal mass: Code(s): N28.89 - Other specified disorders of kidney and ureter Status: Acute Plan SEPSIS due to complicated UTI/pyelonephritis - improving, on ivf, klebsiella growing, await sensitivites, continue iv rocephin L URETERAL lithiasis causing OBSTRUCTIVE HYDRONEPHROSIS - s/p cystoscopic dj stent placement - fu w Urology as outpatient L CYSTIC exophytic RENAL MASS - due 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 chads2-vasc score 5 - recommend ac, will start lovenox for now, will get echo and cardio consultation appreciated, fu w cardio, L PLEURAL EFFUSION - noted on echo, not apparrent on cxr, will diurese now, ct chest if no better tomorrow. (prob preet component of dastolic /pulm edema due to ivf and rapid afib,) wean ox as heidi HTN hx - has been up and down on meds THROMBOCYTOPENIAlikely related to sepsis and infection, no history of this, stable, monitor on eliquis RONEY w dehydration, hyponatremia -better, now w hypokalemia - replaced dvt prophylaxis - heparin sq disposition - home once stable pending clinical course Progress Note: Quality VTE Deep Vein Thrombosis/Pulmonary Embolism Present on Admission: No _ (1) HLD (hyperlipidemia) Qualifiers: Hyperlipidemia type: (2) Leukocytosis Qualifiers: Leukocytosis type: (3) Diabetes mellitus with hyperglycemia Qualifiers: Diabetes mellitus type: type 2 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
[2018-08-03] MEDS: Insulin NovoLOG Aspart Correctional Sugar Inj SQ SCH ×5 (03:20→18:26)
[2018-08-03 06:49] LABS: Baso # (Auto) 0.1 th/mm3 (0.0-0.2); Baso % (Auto) 0.3 % (0.0-2.0); Eos # (Auto) 0.2 th/mm3 (0.0-0.4); Eos % (Auto) 1.3 % (0.0-4.0); Hematocrit 32.5 % (35.0-46.0); Hemoglobin 11.2 gm/dL (11.6-15.3); Lymph # (Auto) 0.6 th/mm3 (1.0-4.8); Lymph % (Auto) 3.2 % (9.0-44.0); Mean Corpuscular HGB Conc 34.4 % (32.0-36.0); Mean Corpuscular Hemoglobin 33.9 pg (27.0-34.0); Mean Corpuscular Volume 98.6 fL (80.0-100.0); Mean Platelet Volume 9.5 fL (7.0-11.0); Mono % (Auto) 5.6 % (0.0-8.0); Neut # (Auto) 15.6 th/mm3 (1.8-7.7); Neut % (Auto) 89.6 % (16.0-70.0); Platelet Count 152 th/mm3 (150-450); White Blood Count 17.5 th/mm3 (4.0-11.0)
[2018-08-03 07:08] LABS: Calcium 7.8 mg/dL (8.5-10.1); Carbon Dioxide 21.9 meq/L (21.0-32.0); Potassium 3.7 meq/L (3.5-5.1)
[2018-08-03 07:26] LABS: Digoxin 1.7 ng/mL (0.8-2.0); Magnesium 1.9 mg/dL (1.5-2.5); Phosphorus 1.4 mg/dL (2.5-4.9)
[2018-08-03] MEDS: Digoxin 125 MCG Tablet PO SCH (08:26)
[2018-08-03 09:21] LABS: Monocytes 3 % (0-8)
[2018-08-03 09:22] LABS: Platelet Estimate Normal (Normal); Toxic Granulation 1+
--- NOTE | 2018-08-03 10:07 | P.PNCA ---
Subjective Interval history: Pt doing better, rate controlled AF on tele Medications and Allergies Active Medications: Active Medications Acetaminophen (Tylenol) 650 mg PO Q4H PRN PRN Reason: fever/pain Last Admin: 08/01/18 17:51 Dose: 650 mg Apixaban (Eliquis) 2.5 mg PO BID [facility] Last Admin: 08/03/18 08:26 Dose: 2.5 mg Dextrose (D50w Vial) 50 ml IV.PUSH UNSCH PRN PRN Reason: PER HYPOGLYCEMIA PROTOCOL Digoxin (Lanoxin) 125 mcg PO DAILY [facility] Last Admin: 08/03/18 08:26 Dose: 125 mcg Glucagon (Glucagon Inj) 1 mg OTHER PRN PRN PRN Reason: for Hypoglycemia Protocol Diltiazem HCl 125 mg/ Sodium (Chloride) 125 mls @ 5 mls/hr IV.CONT TITRATE PRN ; Protocol PRN Reason: Per Protocol Last Titration: 08/01/18 18:45 Dose: Infused Magnesium Sulfate 4 gm/ Sodium (Chloride) 100 mls @ 50 mls/hr IV.SIG UNSCH PRN PRN Reason: For Magnesium 0.9 - 1.1 mg/dL Magnesium Sulfate 2 gm/ Sodium (Chloride) 100 mls @ 50 mls/hr IV.SIG UNSCH PRN PRN Reason: For Magnesium 1.2 - 1.6 mg/dL Last Infusion: 08/01/18 13:54 Dose: Infused Potassium Chloride (Kcl 40 Meq Premix Inj) 40 meq in 100 mls @ 25 mls/hr IV.SIG Q2H PRN PRN Reason: For Potassium 2.8 - 3.2 mEq/L Potassium Chloride (Kcl 20 Meq Premix Inj) 20 meq in 100 mls @ 50 mls/hr IV.SIG Q2H PRN PRN Reason: For Potassium 3.3 - 3.5 mEq/L Last Infusion: 08/02/18 01:01 Dose: Infused Potassium Chloride (Kcl 40 Meq Premix Inj) 40 meq in 100 mls @ 25 mls/hr IV.SIG UNSCH PRN PRN Reason: For Potassium 3.3 - 3.5 mEq/L Potassium Chloride (Kcl 20 Meq Premix Inj) 20 meq in 100 mls @ 50 mls/hr IV.SIG Q2H PRN PRN Reason: For Potassium 2.8 - 3.2 mEq/L Last Infusion: 08/01/18 13:53 Dose: Infused Potassium Phosphate 30 mmol/ (Sodium Chloride) 260 mls @ 42 mls/hr IV.SIG UNSCH PRN PRN Reason: SEE LABEL COMMENTS Sodium Phosphate 30 mmol/ (Sodium Chloride) 260 mls @ 42 mls/hr IV.SIG UNSCH PRN PRN Reason: For Phosphorus < 2.5 mg/dL Lactated Ringer's (Lr 1000 Ml Inj) 1,000 mls @ 84 mls/hr IV.CONT .[id number] [facility] Last Admin: 08/03/18 03:04 Dose: Not Given Ceftriaxone Sodium 2,000 mg/ (Sodium Chloride) 100 mls @ 200 mls/hr IV.SIG Q12H [facility] Last Admin: 08/03/18 08:26 Dose: 200 mls/hr Insulin Aspart (Novolog Insulin Correctional Sugar Inj) 0 unit SQ Q4H [facility]; Protocol Last Admin: 08/03/18 06:50 Dose: 2 unit Magnesium Oxide (Mag-Ox) 800 mg PO UNSCH PRN PRN Reason: For Magnesium 1.2 - 1.6 mg/dL Metoprolol Tartrate (Lopressor) 25 mg PO Q12H [facility] Last Admin: 08/02/18 23:18 Dose: 25 mg Ondansetron HCl (Zofran Inj) 4 mg IV.PUSH Q6H PRN PRN Reason: NAUSEA OR VOMITING Pantoprazole Sodium (Protonix) 40 mg PO DAILY [facility] Last Admin: 08/03/18 08:26 Dose: 40 mg Potassium Bicarb/Potassium Chloride (K-Lyte Cl Eff) 50 meq PO UNSCH PRN PRN Reason: For Potassium 3.3 - 3.5 mEq/L Potassium Phosphate (K-Phos Original) 2,000 mg PO Q4H PRN PRN Reason: Phosphorus Less Than 2.5 mg/dL Potassium Phosphate (K-Phos Original) 2,000 mg PO UNSCH PRN PRN Reason: SEE LABEL COMMENTS Pravastatin Sodium (Pravachol) 80 mg PO QPM [facility] Last Admin: 08/02/18 18:59 Dose: 80 mg Sodium Chloride (Ns Flush) 2 ml IV.FLUSH BID [facility] Last Admin: 08/03/18 08:26 Dose: Not Given Sodium Chloride (Ns Flush) 2 ml IV.FLUSH PRN PRN PRN Reason: FLUSH AFTER USING IV ACCESS Allergies Allergy/AdvReac Type Severity Reaction Status Date / Time penicillin G Allergy Severe Hives Verified 07/30/18 14:31 Home Medications Medication Instructions Recorded Confirmed Type metformin 500 mg PO BID 07/30/18 07/30/18 History metoprolol tartrate 50 mg PO BID 07/30/18 07/30/18 History repaglinide 1 mg PO TID 07/30/18 07/30/18 History simvastatin 40 mg PO QPM 07/30/18 07/30/18 History sitagliptin [Januvia] 100 mg PO DAILY 07/30/18 07/30/18 History verapamil 240 mg PO QAM 07/30/18 07/30/18 History Physical Exam Vital signs: Vital Signs 08/02/18 10:30 08/02/18 11:00 08/02/18 11:30 Temperature Pulse Rate 99 H 86 114 H Respiratory Rate 25 H 26 H 32 H Blood Pressure 139/62 146/65 H 162/81 H Pulse Oximetry 100 99 97 08/02/18 12:00 08/02/18 12:30 08/02/18 13:00 Temperature 97.6 F Pulse Rate 83 81 79 Respiratory Rate 27 H 28 H 28 H Blood Pressure 135/61 153/69 H Pulse Oximetry 100 98 99 08/02/18 13:01 08/02/18 13:31 08/02/18 14:00 Temperature Pulse Rate 83 85 84 Respiratory Rate 27 H 28 H 25 H Blood Pressure 126/58 L 151/65 H 133/60 Pulse Oximetry 99 91 L 99 08/02/18 14:30 08/02/18 15:01 08/02/18 15:02 Temperature Pulse Rate 88 85 84 Respiratory Rate 31 H 22 Blood Pressure 132/58 L 137/66 Pulse Oximetry 99 99 08/02/18 15:30 08/02/18 16:00 08/02/18 16:30 Temperature 97.9 F Pulse Rate 86 89 86 Respiratory Rate 27 H 28 H 26 H Blood Pressure 116/55 L 121/59 L 140/65 Pulse Oximetry 100 99 98 08/02/18 17:00 08/02/18 17:30 08/02/18 18:00 Temperature Pulse Rate 91 H 86 89 Respiratory Rate 31 H 29 H 25 H Blood Pressure 143/63 H 137/66 Pulse Oximetry 98 100 94 L 08/02/18 18:01 08/02/18 18:30 08/02/18 19:00 Temperature Pulse Rate 94 H 91 H 83 Respiratory Rate 25 H 29 H 31 H Blood Pressure 140/63 152/65 H 115/70 Pulse Oximetry 98 99 99 08/02/18 19:30 08/02/18 20:00 08/02/18 20:01 Temperature 99.0 F Pulse Rate 95 H 88 90 Respiratory Rate 27 H 29 H 25 H Blood Pressure 122/60 147/66 H Pulse Oximetry 100 100 100 08/02/18 20:30 08/02/18 20:31 08/02/18 20:34 Temperature Pulse Rate 93 H 90 Respiratory Rate 26 H Blood Pressure 157/65 H Pulse Oximetry 99 98 08/02/18 21:00 08/02/18 21:31 08/02/18 22:00 Temperature Pulse Rate 94 H 98 H 93 H Respiratory Rate 28 H 28 H 27 H Blood Pressure 134/63 156/72 H 146/62 H Pulse Oximetry 98 98 98 08/02/18 23:00 08/02/18 23:01 08/03/18 00:00 Temperature 99.0 F Pulse Rate 95 H 95 H 84 Respiratory Rate 28 H 27 H 30 H Blood Pressure 137/60 131/59 L Pulse Oximetry 98 98 98 08/03/18 01:00 08/03/18 02:00 08/03/18 03:00 Temperature Pulse Rate 78 93 H 83 Respiratory Rate 28 H 26 H 29 H Blood Pressure 135/63 133/62 136/62 Pulse Oximetry 98 98 98 08/03/18 04:00 08/03/18 06:00 08/03/18 08:55 Temperature 98.9 F Pulse Rate 86 78 Respiratory Rate 21 Blood Pressure 133/61 Pulse Oximetry 97 100 Intake & Output 08/02/18 08/03/18 08/03/18 18:59 06:59 18:59 Intake Total 1460 / 1460 1900 / 1900 Output Total 300 / 300 1250 / 1250 Balance 1160 / 1160 650 / 650 Weight 61.5 kg Intake: IV 1100 / 1100 1100 / 1100 LR 1000 mL Inj 1,000 ML @ 84 1000 / 1000 1000 / 1000 mls/hr IV.CONT .[id number] [facility] Rx# :[id number] Rocephin Inj 1,000 MG In NS Inj 100 / 100 100 ML @ 200 mls/hr IV.SIG Q12H [facility] Rx#:[id number] Rocephin Inj 2,000 MG In NS Inj 100 / 100 100 ML @ 200 mls/hr IV.SIG Q12H [facility] Rx#:[id number] Oral 360 / 360 800 / 800 Output: Urine 300 / 300 1250 / 1250 Other: # Incontinent Voids 3 2 Date of Last Bowel Movement 08/02/18 08/02/18 # Bowel Movements 2 # Incontinent Bowel Movements 1 1 - Constitutional no acute distress - Routine HEENT Exam Head: Present: normocephalic Eye: Present: EOMI ENT: Present: mucous membranes moist - Routine Neck Exam Absent: JVD - Routine Respiratory Exam Present: CTA bilaterally - Routine Cardiovascular Exam Present: irregular rhythm, irregularly irregular - Routine Extremities Exam Absent: edema Results 08/03/18 06:08 08/03/18 06:08 CBC 08/02/18 08/03/18 Range/Units 02:52 06:08 WBC 18.7 H 17.5 H (4.0-11.0) th/mm3 RBC 3.08 L 3.30 L (4.00-5.30) mil/mm3 Hgb 10.4 L 11.2 L (11.6-15.3) gm/dL Hct 29.9 L 32.5 L (35.0-46.0) % Plt Count 112 L 152 D (150-450) th/mm3 Neut # (Auto) 16.5 H 15.6 H (1.8-7.7) th/mm3 Lymph # (Auto) 0.5 L 0.6 L (1.0-4.8) th/mm3 [place] # (Auto) 1.4 H 1.0 H (0.0-0.9) th/mm3 Eos # (Auto) 0.1 0.2 (0.0-0.4) th/mm3 Baso # (Auto) 0.0 0.1 (0.0-0.2) th/mm3 Comprehensive Metabolic Panel 08/01/18 08/01/18 08/02/18 Range/Units 06:37 23:27 02:52 Sodium 137 138 138 (136-145) meq/L Potassium 3.1 L D 3.8 4.3 (3.5-5.1) meq/L Chloride 106 D 109 H 110 H (98-107) meq/L Carbon Dioxide 17.7 L 21.3 22.1 (21.0-32.0) meq/L BUN 26 H 25 H 24 H (7-18) mg/dL Creatinine 1.04 H 1.09 H 0.97 (0.50-1.00) mg/dL Calcium 8.2 L D 8.2 L 8.2 L (8.5-10.1) mg/dL 08/02/18 08/03/18 Range/Units 08:01 06:08 Sodium 138 (136-145) meq/L Potassium 4.1 3.7 (3.5-5.1) meq/L Chloride 108 H (98-107) meq/L Carbon Dioxide 21.9 (21.0-32.0) meq/L BUN 21 H (7-18) mg/dL Creatinine 0.83 (0.50-1.00) mg/dL Calcium 7.8 L (8.5-10.1) mg/dL Intake and Output 08/02/18 08/03/18 08/03/18 22:59 06:59 14:59 Intake Total 1600 / 1600 300 / 300 Output Total 700 / 700 550 / 550 Balance 900 / 900 -250 / -250 Intake: IV 1100 / 1100 LR 1000 mL Inj 1,000 ML @ 84 1000 / 1000 mls/hr IV.CONT .[id number] [facility] Rx# :[id number] Rocephin Inj 2,000 MG In NS Inj 100 / 100 100 ML @ 200 mls/hr IV.SIG Q12H [facility] Rx#:[id number] Oral 500 / 500 300 / 300 Output: Urine 700 / 700 550 / 550 Other: # Incontinent Voids 2 Date of Last Bowel Movement 08/02/18 08/02/18 # Bowel Movements 2 2 # Incontinent Bowel Movements 1 Weight 61.5 kg - Imaging and Cardiology Imaging: Impressions Chest X-Ray 08/01/18 00:00 CONCLUSION: Left lung base opacity is present may be due to a combination of consolidation and or pleural effusion, mild pulmonary edema . Chest X-Ray 08/02/18 11:20 CONCLUSION: No significant change. Assessment and Plan - Assessment (1) Atrial fibrillation with RVR Code(s): I48.91 - Unspecified atrial fibrillation Status: Acute Plan: doing well, rate controlled, on eliquis; echo shows normal LVEF, no major valvular abnormalities. . Cardiac issues stable, will be available as needed from here, please call with questions. She can see me in the office in 1-2 weeks.
--- NOTE | 2018-08-03 11:30 | P.PNID ---
Subjective Remarks: Notes reviewed. Patient is up in a chair. Transferred to unit because of A. fib with rapid ventricular response. Her heart rate is now controlled. Denies chest pain or shortness of breath. White blood cell count remains elevated. Afebrile. Status post left ureteral stent on 07/31/2017. This is an 83-year-old white female who presented to the emergency department on 07/30/2018 with nausea, vomiting and diarrhea. The patient reported sudden vomiting and also noted that she was having urinary hesitancy and marked decreased appetite. She denied chills or fever. She also developed pain across the lower back. She presented to the emergency department for evaluation. Temperature in the emergency department was 98.5, and later bertrand to 102.2 this morning. Blood cultures were taken and also urine culture was taken. Urinalysis revealed innumerable white cells. Consultation is requested for evaluation and management. The patient had a bladder ultrasound, which showed mild left-sided hydronephrosis and a 3.9 cm primarily hypoechoic exophytic cystic lesion arising from the mid left kidney. Also, there was adjacent stranding noted. White blood cell count elevated at 16.9. The patient also has acute kidney disease and her estimated GFR is 33. The patient denies other symptoms. Antibiotics: Rocephin Past Medical History: Hypercholesterolemia, diabetes mellitus, history of cholecystectomy, history of hysterectomy, history of bilateral knee surgery. Allergies/Adverse Reactions: Allergies penicillin G Allergy (Severe, Verified 07/30/18 14:31) Hives Objective Vital Signs 08/02/18 11:30 08/02/18 12:00 08/02/18 12:30 Temperature 97.6 F Pulse Rate 114 H 83 81 Respiratory Rate 32 H 27 H 28 H Blood Pressure 162/81 H 135/61 153/69 H Pulse Oximetry 97 100 98 08/02/18 13:00 08/02/18 13:01 08/02/18 13:31 Temperature Pulse Rate 79 83 85 Respiratory Rate 28 H 27 H 28 H Blood Pressure 126/58 L 151/65 H Pulse Oximetry 99 99 91 L 08/02/18 14:00 08/02/18 14:30 08/02/18 15:01 Temperature Pulse Rate 84 88 85 Respiratory Rate 25 H 31 H Blood Pressure 133/60 132/58 L Pulse Oximetry 99 99 08/02/18 15:02 08/02/18 15:30 08/02/18 16:00 Temperature 97.9 F Pulse Rate 84 86 89 Respiratory Rate 22 27 H 28 H Blood Pressure 137/66 116/55 L 121/59 L Pulse Oximetry 99 100 99 08/02/18 16:30 08/02/18 17:00 08/02/18 17:30 Temperature Pulse Rate 86 91 H 86 Respiratory Rate 26 H 31 H 29 H Blood Pressure 140/65 143/63 H 137/66 Pulse Oximetry 98 98 100 08/02/18 18:00 08/02/18 18:01 08/02/18 18:30 Temperature Pulse Rate 89 94 H 91 H Respiratory Rate 25 H 25 H 29 H Blood Pressure 140/63 152/65 H Pulse Oximetry 94 L 98 99 08/02/18 19:00 08/02/18 19:30 08/02/18 20:00 Temperature Pulse Rate 83 95 H 88 Respiratory Rate 31 H 27 H 29 H Blood Pressure 115/70 122/60 Pulse Oximetry 99 100 100 08/02/18 20:01 08/02/18 20:30 08/02/18 20:31 Temperature 99.0 F Pulse Rate 90 93 H Respiratory Rate 25 H 26 H Blood Pressure 147/66 H 157/65 H Pulse Oximetry 100 99 98 08/02/18 20:34 08/02/18 21:00 08/02/18 21:31 Temperature Pulse Rate 90 94 H 98 H Respiratory Rate 28 H 28 H Blood Pressure 134/63 156/72 H Pulse Oximetry 98 98 08/02/18 22:00 08/02/18 23:00 08/02/18 23:01 Temperature Pulse Rate 93 H 95 H 95 H Respiratory Rate 27 H 28 H 27 H Blood Pressure 146/62 H 137/60 Pulse Oximetry 98 98 98 08/03/18 00:00 08/03/18 01:00 08/03/18 02:00 Temperature 99.0 F Pulse Rate 84 78 93 H Respiratory Rate 30 H 28 H 26 H Blood Pressure 131/59 L 135/63 133/62 Pulse Oximetry 98 98 98 08/03/18 03:00 08/03/18 04:00 08/03/18 06:00 Temperature 98.9 F Pulse Rate 83 86 78 Respiratory Rate 29 H 21 Blood Pressure 136/62 133/61 Pulse Oximetry 98 97 08/03/18 08:55 Temperature Pulse Rate Respiratory Rate Blood Pressure Pulse Oximetry 100 Intake & Output 08/02/18 08/03/18 08/03/18 18:59 06:59 18:59 Intake Total 1460 / 1460 1900 / 1900 Output Total 300 / 300 1250 / 1250 Balance 1160 / 1160 650 / 650 Weight 61.5 kg Intake: IV 1100 / 1100 1100 / 1100 LR 1000 mL Inj 1,000 ML @ 84 1000 / 1000 1000 / 1000 mls/hr IV.CONT .[id number] [facility] Rx# :[id number] Rocephin Inj 1,000 MG In NS Inj 100 / 100 100 ML @ 200 mls/hr IV.SIG Q12H [facility] Rx#:[id number] Rocephin Inj 2,000 MG In NS Inj 100 / 100 100 ML @ 200 mls/hr IV.SIG Q12H [facility] Rx#:[id number] Oral 360 / 360 800 / 800 Output: Urine 300 / 300 1250 / 1250 Other: # Incontinent Voids 3 2 Date of Last Bowel Movement 08/02/18 08/02/18 # Bowel Movements 2 # Incontinent Bowel Movements 1 1 08/01/18 18:40 Blood - Peripheral Aerobic Blood Culture - Preliminary No growth in 2 days 08/01/18 18:40 Blood - Peripheral Anaerobic Blood Culture - Preliminary No growth in 2 days 08/01/18 18:45 Blood - Peripheral Aerobic Blood Culture - Preliminary No growth in 2 days 08/01/18 18:45 Blood - Peripheral Anaerobic Blood Culture - Preliminary No growth in 2 days 07/30/18 18:15 Blood - Peripheral Aerobic Blood Culture - Preliminary No growth in 4 days 07/30/18 18:15 Blood - Peripheral Anaerobic Blood Culture - Preliminary No growth in 4 days 07/30/18 18:25 Blood - Peripheral Aerobic Blood Culture - Preliminary No growth in 4 days 07/30/18 18:25 Blood - Peripheral Anaerobic Blood Culture - Preliminary No growth in 4 days 07/31/18 18:41 Random Urine Urine Culture - Final No growth in 48 hours 08/01/18 18:30 Urine - Clean Catch Urine Streptococcus pneumoniae Antigen ( M - Final Presumptive negative for streptococcus pneumoniae antigen, suggesting no current or recent infection. Infection due to Streptococcus pneumoniae cannot be ruled out since the antigen present in the sample may be below the detection limit of the test. 08/01/18 18:30 Urine - Clean Catch Urine Legionella Antigen - Final Presumptive negative for Legionella pneumophila serogroup 1 antigen in urine, suggesting no recent or recurrent infection. Infection due to Legionella cannot be ruled out since other serogroups and species may cause disease, antigen may not be present in urine in early infection, and the level of antigen present in the urine may be below the detection limit of the test. 08/01/18 04:10 Throat Group A Streptococcus Screen/Cult - Pending 08/01/18 04:10 Throat Group A Streptococcus Screen ([facility]) - Final 08/01/18 05:05 Nasal Wash Influenza Types A,B Antigen - Final Negative for FLU A and B antigen Infection due to influenza A or B cannot be ruled out since the antigen present in the sample may be below the detection limit of the test. 07/30/18 14:30 Clean Catch Urine Urine Culture - Final Klebsiella pneumoniae Lab - Hematology Results 08/02/18 08/03/18 02:52 06:08 WBC 18.7 H 17.5 H RBC 3.08 L 3.30 L Hgb 10.4 L 11.2 L Hct 29.9 L 32.5 L MCV 96.8 98.6 MCH 33.7 33.9 MCHC 34.8 34.4 RDW 13.9 14.0 Plt Count 112 L 152 D MPV 10.6 9.5 Prelim Diff (Auto) Slide review pending Neut % (Auto) 88.6 H 89.6 H Lymph % (Auto) 2.8 L 3.2 L [place] % (Auto) 7.8 5.6 Eos % (Auto) 0.6 1.3 Baso % (Auto) 0.2 0.3 Neut # (Auto) 16.5 H 15.6 H Lymph # (Auto) 0.5 L 0.6 L [place] # (Auto) 1.4 H 1.0 H Eos # (Auto) 0.1 0.2 Baso # (Auto) 0.0 0.1 WBC Differential . Manual diff final Seg Neuts % (Manual) 90 H Band Neuts % (Manual) 7 H Monocytes % (Manual) 3 Abs Neuts (Manual) 17.0 H Differential Comment Auto diff final . Toxic Granulation 1+ H Platelet Estimate Normal Platelet Morphology Enlarged H Lab - Chemistry Results 08/01/18 08/01/18 08/01/18 06:37 06:37 12:56 Sodium 137 Potassium 3.1 L D Chloride 106 D Carbon Dioxide 17.7 L Anion Gap 13 BUN 26 H Creatinine 1.04 H Estimated GFR 51 L POC Glucose 245 H Random Glucose 195 H Lactic Acid Calcium 8.2 L D Phosphorus 1.8 L Cancelled Magnesium 1.8 TSH 08/01/18 08/01/18 08/01/18 18:04 18:40 21:31 Sodium Potassium Chloride Carbon Dioxide Anion Gap BUN Creatinine Estimated GFR POC Glucose 290 H 215 H Random Glucose Lactic Acid 2.5 H Calcium Phosphorus Magnesium TSH 08/01/18 08/01/18 08/02/18 22:33 23:27 00:54 Sodium 138 Potassium 3.8 Chloride 109 H Carbon Dioxide 21.3 Anion Gap 8 BUN 25 H Creatinine 1.09 H Estimated GFR 48 L POC Glucose 168 H Random Glucose 205 H Lactic Acid 1.9 Calcium 8.2 L Phosphorus Magnesium [facility] 1.250 08/02/18 08/02/18 08/02/18 02:52 02:52 04:11 Sodium 138 Potassium 4.3 Chloride 110 H Carbon Dioxide 22.1 Anion Gap 6 BUN 24 H Creatinine 0.97 Estimated GFR 55 L POC Glucose 153 H Random Glucose 172 H Lactic Acid 1.5 Calcium 8.2 L Phosphorus Magnesium 2.1 TSH 08/02/18 08/02/18 08/02/18 06:59 08:01 11:46 Sodium Potassium 4.1 Chloride Carbon Dioxide Anion Gap BUN Creatinine Estimated GFR POC Glucose 171 H 254 H Random Glucose Lactic Acid Calcium Phosphorus Magnesium TSH 08/02/18 08/02/18 08/02/18 15:42 19:05 23:11 Sodium Potassium Chloride Carbon Dioxide Anion Gap BUN Creatinine Estimated GFR POC Glucose 221 H 227 H 169 H Random Glucose Lactic Acid Calcium Phosphorus Magnesium TSH 08/03/18 08/03/18 08/03/18 03:01 06:07 06:08 Sodium 138 Potassium 3.7 Chloride 108 H Carbon Dioxide 21.9 Anion Gap 8 BUN 21 H Creatinine 0.83 Estimated GFR 66 L POC Glucose 177 H 161 H Random Glucose 170 H Lactic Acid Calcium 7.8 L Phosphorus 1.4 L Magnesium 1.9 TSH Imaging: ITS Impressions Abdomen/Pelvis CT 07/30/18 17:13 CONCLUSION: 1. Small calculi are identified in the left renal collecting system and proximal ureter. There is mild hydronephrosis with perinephric stranding characteristic of obstructive uropathy. 2. Thick walled cyst off the lateral margin of mid left kidney. Cystic malignancy needs to be considered. 3. Uncomplicated colonic diverticulosis. 4. Fibrotic lung disease right lower lobe. 5. Status post hysterectomy and cholecystectomy. Abdomen/Bladder Ultrasound 07/30/18 18:40 CONCLUSION: 1. Mild left-sided hydronephrosis. Calyceal calculi noted on CT exam are not demonstrated on ultrasound. 2. 3.9 cm primarily hypoechoic exophytic cystic lesion arising from the mid left kidney. This corresponds to the thick walled cystic lesion on CT exam with adjacent stranding. There is no definite nodular component or evidence for vascularity. Differential considerations include hemorrhagic cyst versus secondarily infected cyst although cystic neoplasm is not entirely excluded by ultrasound. Multiphasic renal mass MRI or CT examination is recommended once patient's acute left-sided obstructive uropathy is resolved. Abdomen X-Ray 07/31/18 00:00 CONCLUSION: Left double pigtail ureteral stent catheter. Chest X-Ray 08/02/18 11:20 CONCLUSION: No significant change. Physical Exam: GENERAL: No acute distress. Patient is alert and oriented. HEENT: Head atraumatic. Extraocular movements are grossly intact. Pupils reactive to light. No icterus. Oropharynx: Mucosa slightly dry. NECK: Supple without adenopathy or swelling. LUNGS: Clear, decreased breath sounds. HEART: Irregular rate and rhythm without murmurs, rubs or gallops. ABDOMEN: Bowel sounds present. Soft, no tenderness appreciated. Mildly distended. EXTREMITIES: No clubbing, cyanosis or edema. SKIN: No rash. Cool and dry NEUROLOGIC: No gross focal findings. PSYCHIATRIC: Calm and cooperative. Peripheral line without evidence of infection. Assessment and Plan - Plan IMPRESSION: Compliacted UTI - S/P stent Klebsiella UTI Possible sepsis due to source Acute kidney disease, stage III. Fever and leukocytosis secondary to infection. RECOMMENDATIONS: Continue ceftriaxone. Monitor white blood cell count. Follow C/S
[2018-08-03] MEDS: Metoprolol Tartrate 25 MG Tablet PO SCH ×2 (11:47→23:35)
--- NOTE | 2018-08-03 17:06 | P.PN ---
Subjective Interval history: telemetry- a fib - rate controlled feels stronger no complains up with PT today basline inependt with all ADLs Physical Exam Vital signs: Vital Signs 08/02/18 17:30 08/02/18 18:00 08/02/18 18:01 Temperature Pulse Rate 86 89 94 H Respiratory Rate 29 H 25 H 25 H Blood Pressure 137/66 140/63 Pulse Oximetry 100 94 L 98 08/02/18 18:30 08/02/18 19:00 08/02/18 19:30 Temperature Pulse Rate 91 H 83 95 H Respiratory Rate 29 H 31 H 27 H Blood Pressure 152/65 H 115/70 122/60 Pulse Oximetry 99 99 100 08/02/18 20:00 08/02/18 20:01 08/02/18 20:30 Temperature 99.0 F Pulse Rate 88 90 93 H Respiratory Rate 29 H 25 H 26 H Blood Pressure 147/66 H 157/65 H Pulse Oximetry 100 100 99 08/02/18 20:31 08/02/18 20:34 08/02/18 21:00 Temperature Pulse Rate 90 94 H Respiratory Rate 28 H Blood Pressure 134/63 Pulse Oximetry 98 98 08/02/18 21:31 08/02/18 22:00 08/02/18 23:00 Temperature Pulse Rate 98 H 93 H 95 H Respiratory Rate 28 H 27 H 28 H Blood Pressure 156/72 H 146/62 H Pulse Oximetry 98 98 98 08/02/18 23:01 08/03/18 00:00 08/03/18 01:00 Temperature 99.0 F Pulse Rate 95 H 84 78 Respiratory Rate 27 H 30 H 28 H Blood Pressure 137/60 131/59 L 135/63 Pulse Oximetry 98 98 98 08/03/18 02:00 08/03/18 03:00 08/03/18 04:00 Temperature 98.9 F Pulse Rate 93 H 83 86 Respiratory Rate 26 H 29 H 21 Blood Pressure 133/62 136/62 133/61 Pulse Oximetry 98 98 97 08/03/18 06:00 08/03/18 08:00 08/03/18 08:55 Temperature 98.8 F Pulse Rate 78 90 Respiratory Rate 24 Blood Pressure 176/72 H Pulse Oximetry 98 100 08/03/18 10:00 08/03/18 12:00 08/03/18 14:00 Temperature 98.6 F Pulse Rate 93 H 94 H 86 Respiratory Rate 22 Blood Pressure 160/70 H Pulse Oximetry 99 08/03/18 16:00 Temperature 98.4 F Pulse Rate 87 Respiratory Rate 21 Blood Pressure 152/68 H Pulse Oximetry 98 Intake & Output 08/02/18 08/03/18 08/03/18 18:59 06:59 18:59 Intake Total 1460 / 1460 1900 / 1900 100 / 100 Output Total 300 / 300 1250 / 1250 Balance 1160 / 1160 650 / 650 100 / 100 Weight 61.5 kg Intake: IV 1100 / 1100 1100 / 1100 100 / 100 LR 1000 mL Inj 1,000 ML @ 84 1000 / 1000 1000 / 1000 mls/hr IV.CONT .[id number] ARI Rx# :[id number] Rocephin Inj 1,000 MG In NS Inj 100 / 100 100 ML @ 200 mls/hr IV.SIG Q12H ARI Rx#:[id number] Rocephin Inj 2,000 MG In NS Inj 100 / 100 100 / 100 100 ML @ 200 mls/hr IV.SIG Q12H ARI Rx#:[id number] Oral 360 / 360 800 / 800 Output: Urine 300 / 300 1250 / 1250 Other: # Incontinent Voids 3 2 Date of Last Bowel Movement 08/02/18 08/02/18 08/02/18 # Bowel Movements 2 # Incontinent Bowel Movements 1 1 Narrative: GENERAL: Elderly female , alert and conversant. SKIN: warm, well perfused. HEAD: Atraumatic. Normocephalic. EYES: Pupils equal and round, reactive. No scleral icterus. No injection or drainage. ENT: No nasal bleeding or discharge. MMM NECK: Trachea midline. No JVD. CARDIOVASCULAR: irregularly irregular, rate controlled in 90s. no mrg. RESPIRATORY: respiratory pattern appears comfortable, no accessory muscle use. Faint Bibasilar rales. No wheeze or rhonchi. GASTROINTESTINAL: Abdomen mildly distended and tympanitic, soft and nontender. Bowel sounds present. : Purewick catheter in place with dark philip urine output. MUSCULOSKELETAL: Extremities without clubbing, cyanosis, or edema. No obvious deformities. NEUROLOGICAL: Awake and alert, oriented person, place, year, president. No obvious cranial nerve deficits. Moving all extremities spontaneously with no focal deficit. Results - Labs CBC & Chem 7: 08/03/18 06:08 08/03/18 06:08 Laboratory Results - last 24 hr 08/02/18 08/02/18 08/03/18 19:05 23:11 03:01 WBC RBC Hgb Hct MCV MCH MCHC RDW Plt Count MPV Prelim Diff (Auto) Neut % (Auto) Lymph % (Auto) [place] % (Auto) Eos % (Auto) Baso % (Auto) Neut # (Auto) Lymph # (Auto) [place] # (Auto) Eos # (Auto) Baso # (Auto) WBC Differential Seg Neuts % (Manual) Band Neuts % (Manual) Monocytes % (Manual) Abs Neuts (Manual) Differential Comment Toxic Granulation Platelet Estimate Platelet Morphology Sodium Potassium Chloride Carbon Dioxide Anion Gap BUN Creatinine Estimated GFR POC Glucose 227 H 169 H 177 H Random Glucose Calcium Phosphorus Magnesium Digoxin 08/03/18 08/03/18 08/03/18 06:07 06:08 06:08 WBC 17.5 H RBC 3.30 L Hgb 11.2 L Hct 32.5 L MCV 98.6 MCH 33.9 MCHC 34.4 RDW 14.0 Plt Count 152 D MPV 9.5 Prelim Diff (Auto) Slide review pending Neut % (Auto) 89.6 H Lymph % (Auto) 3.2 L [place] % (Auto) 5.6 Eos % (Auto) 1.3 Baso % (Auto) 0.3 Neut # (Auto) 15.6 H Lymph # (Auto) 0.6 L [place] # (Auto) 1.0 H Eos # (Auto) 0.2 Baso # (Auto) 0.1 WBC Differential Manual diff final Seg Neuts % (Manual) 90 H Band Neuts % (Manual) 7 H Monocytes % (Manual) 3 Abs Neuts (Manual) 17.0 H Differential Comment . Toxic Granulation 1+ H Platelet Estimate Normal Platelet Morphology Enlarged H Sodium 138 Potassium 3.7 Chloride 108 H Carbon Dioxide 21.9 Anion Gap 8 BUN 21 H Creatinine 0.83 Estimated GFR 66 L POC Glucose 161 H Random Glucose 170 H Calcium 7.8 L Phosphorus 1.4 L Magnesium 1.9 Digoxin 1.7 08/03/18 11:53 WBC RBC Hgb Hct MCV MCH MCHC RDW Plt Count MPV Prelim Diff (Auto) Neut % (Auto) Lymph % (Auto) [place] % (Auto) Eos % (Auto) Baso % (Auto) Neut # (Auto) Lymph # (Auto) [place] # (Auto) Eos # (Auto) Baso # (Auto) WBC Differential Seg Neuts % (Manual) Band Neuts % (Manual) Monocytes % (Manual) Abs Neuts (Manual) Differential Comment Toxic Granulation Platelet Estimate Platelet Morphology Sodium Potassium Chloride Carbon Dioxide Anion Gap BUN Creatinine Estimated GFR POC Glucose 189 H Random Glucose Calcium Phosphorus Magnesium Digoxin Microbiology 08/01/18 04:10 Throat Group A Streptococcus Screen/Cult - Preliminary No Beta Streptococci isolated at 24 hours 08/01/18 18:40 Blood - Peripheral Aerobic Blood Culture - Preliminary No growth in 2 days 08/01/18 18:40 Blood - Peripheral Anaerobic Blood Culture - Preliminary No growth in 2 days 08/01/18 18:45 Blood - Peripheral Aerobic Blood Culture - Preliminary No growth in 2 days 08/01/18 18:45 Blood - Peripheral Anaerobic Blood Culture - Preliminary No growth in 2 days 07/30/18 18:15 Blood - Peripheral Aerobic Blood Culture - Preliminary No growth in 4 days 07/30/18 18:15 Blood - Peripheral Anaerobic Blood Culture - Preliminary No growth in 4 days 07/30/18 18:25 Blood - Peripheral Aerobic Blood Culture - Preliminary No growth in 4 days 07/30/18 18:25 Blood - Peripheral Anaerobic Blood Culture - Preliminary No growth in 4 days 07/31/18 18:41 Random Urine Urine Culture - Final No growth in 48 hours Assessment and Plan - Assessment (1) Severe sepsis Code(s): A41.9 - Sepsis, unspecified organism; R65.20 - Severe sepsis without septic shock Status: Acute (2) Left ureteral calculus Code(s): N20.1 - Calculus of ureter Status: Acute Onset Date: ~07/28/18 (3) Hydronephrosis due to obstruction of ureter Code(s): N13.2 - Hydronephrosis with renal and ureteral calculous obstruction Status: Acute Onset Date: ~07/28/18 (4) Acute pyelonephritis Code(s): N10 - Acute pyelonephritis Status: Acute (5) Atrial fibrillation with RVR Code(s): I48.91 - Unspecified atrial fibrillation Status: Acute (6) Essential hypertension Code(s): I10 - Essential (primary) hypertension Status: Chronic (7) HLD (hyperlipidemia) Code(s): E78.5 - Hyperlipidemia, unspecified Status: Chronic (8) RONEY (acute kidney injury) Code(s): N17.9 - Acute kidney failure, unspecified Status: Acute (9) Leukocytosis Code(s): D72.829 - Elevated white blood cell count, unspecified Status: Acute (10) Thrombocytopenia Code(s): D69.6 - Thrombocytopenia, unspecified Status: Acute (11) Lactic acidosis Code(s): E87.2 - Acidosis Status: Acute (12) Diabetes mellitus with hyperglycemia Code(s): E11.65 - Type 2 diabetes mellitus with hyperglycemia Status: Acute (13) Left renal mass Code(s): N28.89 - Other specified disorders of kidney and ureter Status: Acute - Plan 83 yers old female Severe sepsis- Klebsiella UTI Acute pyelonephritis complicated by obstructing stone Repeat blood culture ending- negative so far Influenza screenneg Urine Legionella pneumococcal antigennegative On Rocephin since 07/30. #4-Increased to BID renally dosed Infectious disease following Atrial fibrillation with RVR Hypertension Hyperlipidemia Echo good Continue metoprolol 25 mg p.o. every 12. Digoxin load has been ordered per cardiology and appears to be working well to control rate. A digoxin level was 3.5 at 16: 39 however this was drawn about an hour and a half after digoxin 500 mg IV therefore I would expect it to be falsely elevated. Will check repeat digoxin level after the load, 08/03 Eliquis 2.5 mg p.o. twice daily for anticoagulation for atrial fibrillation Continue statin, pravastatin 40 mg p.o. daily as a substitute for home simvastatin 40 mg p.o. daily Cardiology - Dr. Ellis-signed off GI: Cardiac diet Had a bowel movement today 08/01. Bowel regimen Zofran for nausea FEN/RENAL/UROLOGY: 5-6 mm obstructing kidney stone left ureter Mild hydronephrosis Exophytic cystic mass left kidney Acute kidney injury She underwent cystoscopy with placement of left ureteral stent 07/31/[address] Brady Hawthorne [facility]. Purewick catheter is in place. Monitoring intake and output Monitor electrolytes and replace as indicated per ICU electrolyte replacement protocol. F/u with urology outpatient for retrieval of stone/stent and evaluation of renal mass. ID: [id number]: Thrombocytopenia Suspect consumptive secondary to sepsis ENDO: Diabetes mellitus Glucose is not at target. Increase NovoLog medium dose sliding scale every 4 hours. Hold repaglinide Hold metformin Hold Januvia F/U TSH PROPH: Eliquis will provide DVT prophylaxis. Protonix 40 mg p.o. daily for stress ulcer prophylaxis ACCESS: Peripheral IV FULL CODE L (12) Diabetes mellitus with hyperglycemia Qualifiers: Diabetes mellitus type: type 2
[2018-08-04] MEDS: Insulin NovoLOG Aspart Correctional Sugar Inj SQ SCH ×5 (00:15→16:09)
[2018-08-04] MEDS: Digoxin 125 MCG Tablet PO SCH (08:53)
[2018-08-04] MEDS: Metoprolol Tartrate 25 MG Tablet PO SCH (11:39)
[2018-08-04 12:40] VITALS: BP 174/70; RESP 18; TEMP 98.1; O2SAT 99
[2018-08-04] MEDS ORDERED: Metoprolol Tartrate 25 MG Tablet PO SCH (12:56)
[2018-08-04] MEDS ORDERED: amLODIPine 5 MG Tablet PO SCH (13:00)
[2018-08-04 13:01] VITALS: PULSE 109
--- NOTE | 2018-08-04 13:04 | P.DS ---
Date of admission: 07/30/18 18:57 Primary care physician: Mara Martell MD Brief History from admission: This patient is an 83-year-old female with a diagnosis of diabetes, dyslipidemia , hypertension. The patient presented with complaints of nausea and vomiting. She also complains of left-sided flank pain. She was found to be febrile, tachycardic, hypotensive, elevated WBC count. CT scan of the abdomen pelvis showed multiple calculi and hydronephrosis of the left kidney with perinephric stranding. Urinalysis was positive for UTI. Patient was subsequently admitted for sepsis secondary to Klebsiella UTI present on admission. DS: Summary Hospital Course: 1. We are sepsis secondary to complicated Klebsiella UTI present on admission 2. Pyelonephritis 3. Left-sided kidney stones status post stent placement This patient is an 83-year-old female with a diagnosis of diabetes, dyslipidemia , hypertension. The patient presented with complaints of nausea and vomiting. She also complains of left-sided flank pain. She was found to be febrile, tachycardic, hypotensive, elevated WBC count. CT scan of the abdomen pelvis showed multiple calculi and hydronephrosis of the left kidney with perinephric stranding. Urinalysis was positive for UTI. Patient was subsequently admitted for sepsis secondary to Klebsiella UTI present on admission. The patient has been on IV Rocephin For 5 days, she will be discharged on 5 more days of ciprofloxacin. Infectious disease followed the patient throughout the hospitalization. Urology evaluated the patient and the patient underwent stent placement on the left side due to calculi causing moderate hydronephrosis on the left. Patient can follow-up with urology outpatient in next couple of weeks for removal of the left ureter stone and stent. There is also a possible left kidney mass which the patient will be followed up for outpatient. 4. Atrial for ablation with rapid ventricular rate She was also found to be in atrial for ablation with rapid ventricular rate. She was started on a Cardizem drip which was subsequently switched over to p.o. metoprolol and digoxin. Cardiology evaluated the patient while she was in house. Her heart rate is now under control with beta-tamera and digoxin. These medications will be continued on discharge. Patient's A. fib with RVR was likely secondary to sepsis. Continue Eliquis for anticoagulation. 5. Dyslipidemia Continue statin. 6. Hypertension Continue metoprolol, Norvasc added to the patient's medication regimen. - Time Spent with Patient Total time spent providing and/or coordinating discharge services: Greater than 30 minutes - Quality: VTE Deep Vein Thrombosis/Pulmonary Embolism Present on Admission: No Exam Vital signs: Vital Signs 08/03/18 13:00 08/03/18 14:00 08/03/18 15:00 Temperature Pulse Rate 79 80 81 Respiratory Rate 26 H 28 H 21 Blood Pressure 148/65 H 163/68 H 129/62 Pulse Oximetry 100 100 99 08/03/18 16:00 08/03/18 16:01 08/03/18 17:00 Temperature 98.4 F Pulse Rate 89 94 H 82 Respiratory Rate 28 H 26 H 26 H Blood Pressure 152/68 H 152/68 H 159/66 H Pulse Oximetry 98 99 100 08/03/18 18:00 08/03/18 19:00 08/03/18 20:00 Temperature 97.9 F Pulse Rate 96 H 94 H 100 H Respiratory Rate 28 H 29 H 24 Blood Pressure 190/74 H 177/75 H 153/69 H Pulse Oximetry 99 99 97 08/03/18 21:00 08/03/18 22:00 08/03/18 23:00 Temperature Pulse Rate 111 H 84 86 Respiratory Rate 28 H 25 H 27 H Blood Pressure 169/70 H 120/56 L 139/76 Pulse Oximetry 98 99 98 08/04/18 00:00 08/04/18 00:55 08/04/18 01:10 Temperature 98.3 F 98.1 F Pulse Rate 95 H 88 100 H Respiratory Rate 25 H 18 Blood Pressure 135/63 157/69 H Pulse Oximetry 98 97 08/04/18 04:00 08/04/18 08:00 08/04/18 10:14 Temperature 97.9 F 97.5 F L Pulse Rate 86 95 H Respiratory Rate 18 15 Blood Pressure 163/74 H 173/101 H Pulse Oximetry 97 99 98 08/04/18 12:00 Temperature 98.1 F Pulse Rate 113 H Respiratory Rate 18 Blood Pressure 174/70 H Pulse Oximetry 99 Intake & Output 08/03/18 08/04/18 08/04/18 18:59 06:59 18:59 Intake Total 1100 / 1100 1820 / 1820 1100 / 1100 Output Total 950 / 950 Balance 1100 / 1100 870 / 870 1100 / 1100 Weight 62 kg Intake: IV 1100 / 1100 1100 / 1100 1100 / 1100 LR 1000 mL Inj 1,000 ML @ 84 1000 / 1000 1000 / 1000 1000 / 1000 mls/hr IV.CONT .[id number] ARI Rx# :[id number] Rocephin Inj 2,000 MG In NS Inj 100 / 100 100 / 100 100 / 100 100 ML @ 200 mls/hr IV.SIG Q12H ARI Rx#:[id number] Oral 720 / 720 Output: Urine 950 / 950 Other: # Voids 1 # Incontinent Voids 3 Date of Last Bowel Movement 08/02/18 08/02/18 # Bowel Movements 0 Narrative: General patient in no acute distress HEENT extraocular movements are intact, clear oral mucosa Cardiovascular S1-S2 audible, irregularly irregular rhythm Respiratory clear to auscultation bilaterally Abdomen soft, nontender, nondistended, normal bowel sounds Extremities no edema 2+ distal pulses in bilateral upper and lower extremities Neuro patient moves all 4 extremities, sensation is intact bilaterally Results Procedures completed during hospitalization: Stent placement on the left ureter Labs on day of discharge: Labs from last 24 hours 08/04/18 08/04/18 08/04/18 11:40 06:32 04:18 POC Glucose 236 H 145 H 149 H 08/04/18 08/03/18 00:11 18:14 POC Glucose 223 H 232 H Preliminary micro results at discharge 08/01/18 18:40 Aerobic Blood Culture - Preliminary Blood - Peripheral No growth in 3 days Anaerobic Blood Culture - Preliminary No growth in 3 days 08/01/18 18:45 Aerobic Blood Culture - Preliminary Blood - Peripheral No growth in 3 days Anaerobic Blood Culture - Preliminary No growth in 3 days - Impressions ITS Impressions Abdomen/Pelvis CT 07/30/18 17:13 CONCLUSION: 1. Small calculi are identified in the left renal collecting system and proximal ureter. There is mild hydronephrosis with perinephric stranding characteristic of obstructive uropathy. 2. Thick walled cyst off the lateral margin of mid left kidney. Cystic malignancy needs to be considered. 3. Uncomplicated colonic diverticulosis. 4. Fibrotic lung disease right lower lobe. 5. Status post hysterectomy and cholecystectomy. Abdomen/Bladder Ultrasound 07/30/18 18:40 CONCLUSION: 1. Mild left-sided hydronephrosis. Calyceal calculi noted on CT exam are not demonstrated on ultrasound. 2. 3.9 cm primarily hypoechoic exophytic cystic lesion arising from the mid left kidney. This corresponds to the thick walled cystic lesion on CT exam with adjacent stranding. There is no definite nodular component or evidence for vascularity. Differential considerations include hemorrhagic cyst versus secondarily infected cyst although cystic neoplasm is not entirely excluded by ultrasound. Multiphasic renal mass MRI or CT examination is recommended once patient's acute left-sided obstructive uropathy is resolved. Abdomen X-Ray 07/31/18 00:00 CONCLUSION: Left double pigtail ureteral stent catheter. Chest X-Ray 08/02/18 11:20 CONCLUSION: No significant change. Discharge Plan - Discharge Disposition Patient Disposition: 03 Discharge to SNF - Discharge Condition Condition: Stable - Discharge Order Discharge Orders: Discharge Order (Routine); Ordered 08/04/18 Ordered By: Sharyn Thacker - Physicians Team Primary Care Provider: Mara Maretll Attending Provider: Sharyn Thacker Other Providers: Zeferino Arias MD ; Brady Hawthorne MD ; Dany Cardenas MD ; Constantino Head MD ; Xochitl Gutiérrez MD ; Prakash Julio MD
--- NOTE | 2018-08-04 13:21 | P.PNID ---
Subjective Remarks: Patient says she feels okay. Afebrile. Denies chest pain or shortness of breath. White blood cell count remains elevated. Status post left ureteral stent on 07/31/2017. This is an 83-year-old white female who presented to the emergency department on 07/30/2018 with nausea, vomiting and diarrhea. The patient reported sudden vomiting and also noted that she was having urinary hesitancy and marked decreased appetite. She denied chills or fever. She also developed pain across the lower back. She presented to the emergency department for evaluation. Temperature in the emergency department was 98.5, and later bertrand to 102.2 this morning. Blood cultures were taken and also urine culture was taken. Urinalysis revealed innumerable white cells. Consultation is requested for evaluation and management. The patient had a bladder ultrasound, which showed mild left-sided hydronephrosis and a 3.9 cm primarily hypoechoic exophytic cystic lesion arising from the mid left kidney. Also, there was adjacent stranding noted. White blood cell count elevated at 16.9. The patient also has acute kidney disease and her estimated GFR is 33. The patient denies other symptoms. Antibiotics: Rocephin Past Medical History: Hypercholesterolemia, diabetes mellitus, history of cholecystectomy, history of hysterectomy, history of bilateral knee surgery. Allergies/Adverse Reactions: Allergies penicillin G Allergy (Severe, Verified 07/30/18 14:31) Hives Objective Vital Signs 08/03/18 14:00 08/03/18 15:00 08/03/18 16:00 Temperature 98.4 F Pulse Rate 80 81 89 Respiratory Rate 28 H 21 28 H Blood Pressure 163/68 H 129/62 152/68 H Pulse Oximetry 100 99 98 08/03/18 16:01 08/03/18 17:00 08/03/18 18:00 Temperature Pulse Rate 94 H 82 96 H Respiratory Rate 26 H 26 H 28 H Blood Pressure 152/68 H 159/66 H 190/74 H Pulse Oximetry 99 100 99 08/03/18 19:00 08/03/18 20:00 08/03/18 21:00 Temperature 97.9 F Pulse Rate 94 H 100 H 111 H Respiratory Rate 29 H 24 28 H Blood Pressure 177/75 H 153/69 H 169/70 H Pulse Oximetry 99 97 98 08/03/18 22:00 08/03/18 23:00 08/04/18 00:00 Temperature 98.3 F Pulse Rate 84 86 95 H Respiratory Rate 25 H 27 H 25 H Blood Pressure 120/56 L 139/76 135/63 Pulse Oximetry 99 98 98 08/04/18 00:55 08/04/18 01:10 08/04/18 04:00 Temperature 98.1 F 97.9 F Pulse Rate 88 100 H 86 Respiratory Rate 18 18 Blood Pressure 157/69 H 163/74 H Pulse Oximetry 97 97 08/04/18 08:00 08/04/18 10:14 08/04/18 12:00 Temperature 97.5 F L 98.1 F Pulse Rate 95 H 109 H Respiratory Rate 15 18 Blood Pressure 173/101 H 174/70 H Pulse Oximetry 99 98 99 Intake & Output 08/03/18 08/04/18 08/04/18 18:59 06:59 18:59 Intake Total 1100 / 1100 1820 / 1820 1100 / 1100 Output Total 950 / 950 Balance 1100 / 1100 870 / 870 1100 / 1100 Weight 62 kg Intake: IV 1100 / 1100 1100 / 1100 1100 / 1100 LR 1000 mL Inj 1,000 ML @ 84 1000 / 1000 1000 / 1000 1000 / 1000 mls/hr IV.CONT .[id number] [facility] Rx# :[id number] Rocephin Inj 2,000 MG In NS Inj 100 / 100 100 / 100 100 / 100 100 ML @ 200 mls/hr IV.SIG Q12H [facility] Rx#:[id number] Oral 720 / 720 Output: Urine 950 / 950 Other: # Voids 1 # Incontinent Voids 3 Date of Last Bowel Movement 08/02/18 08/02/18 # Bowel Movements 0 08/01/18 18:40 Blood - Peripheral Aerobic Blood Culture - Preliminary No growth in 3 days 08/01/18 18:40 Blood - Peripheral Anaerobic Blood Culture - Preliminary No growth in 3 days 08/01/18 18:45 Blood - Peripheral Aerobic Blood Culture - Preliminary No growth in 3 days 08/01/18 18:45 Blood - Peripheral Anaerobic Blood Culture - Preliminary No growth in 3 days 07/30/18 18:15 Blood - Peripheral Aerobic Blood Culture - Final No growth in 5 days 07/30/18 18:15 Blood - Peripheral Anaerobic Blood Culture - Final No growth in 5 days 07/30/18 18:25 Blood - Peripheral Aerobic Blood Culture - Final No growth in 5 days 07/30/18 18:25 Blood - Peripheral Anaerobic Blood Culture - Final No growth in 5 days 08/01/18 04:10 Throat Group A Streptococcus Screen/Cult - Final No Beta Streptococci isolated. 07/31/18 18:41 Random Urine Urine Culture - Final No growth in 48 hours 08/01/18 18:30 Urine - Clean Catch Urine Streptococcus pneumoniae Antigen ( M - Final Presumptive negative for streptococcus pneumoniae antigen, suggesting no current or recent infection. Infection due to Streptococcus pneumoniae cannot be ruled out since the antigen present in the sample may be below the detection limit of the test. 08/01/18 18:30 Urine - Clean Catch Urine Legionella Antigen - Final Presumptive negative for Legionella pneumophila serogroup 1 antigen in urine, suggesting no recent or recurrent infection. Infection due to Legionella cannot be ruled out since other serogroups and species may cause disease, antigen may not be present in urine in early infection, and the level of antigen present in the urine may be below the detection limit of the test. 08/01/18 04:10 Throat Group A Streptococcus Screen ([facility]) - Final 08/01/18 05:05 Nasal Wash Influenza Types A,B Antigen - Final Negative for FLU A and B antigen Infection due to influenza A or B cannot be ruled out since the antigen present in the sample may be below the detection limit of the test. 07/30/18 14:30 Clean Catch Urine Urine Culture - Final Klebsiella pneumoniae Lab - Hematology Results 08/03/18 06:08 WBC 17.5 H RBC 3.30 L Hgb 11.2 L Hct 32.5 L MCV 98.6 MCH 33.9 MCHC 34.4 RDW 14.0 Plt Count 152 D MPV 9.5 Prelim Diff (Auto) Slide review pending Neut % (Auto) 89.6 H Lymph % (Auto) 3.2 L Mason % (Auto) 5.6 Eos % (Auto) 1.3 Baso % (Auto) 0.3 Neut # (Auto) 15.6 H Lymph # (Auto) 0.6 L Mason # (Auto) 1.0 H Eos # (Auto) 0.2 Baso # (Auto) 0.1 WBC Differential Manual diff final Seg Neuts % (Manual) 90 H Band Neuts % (Manual) 7 H Monocytes % (Manual) 3 Abs Neuts (Manual) 17.0 H Differential Comment . Toxic Granulation 1+ H Platelet Estimate Normal Platelet Morphology Enlarged H Lab - Chemistry Results 08/02/18 08/02/18 08/02/18 15:42 19:05 23:11 Sodium Potassium Chloride Carbon Dioxide Anion Gap BUN Creatinine Estimated GFR POC Glucose 221 H 227 H 169 H Random Glucose Calcium Phosphorus Magnesium 08/03/18 08/03/18 08/03/18 03:01 06:07 06:08 Sodium 138 Potassium 3.7 Chloride 108 H Carbon Dioxide 21.9 Anion Gap 8 BUN 21 H Creatinine 0.83 Estimated GFR 66 L POC Glucose 177 H 161 H Random Glucose 170 H Calcium 7.8 L Phosphorus 1.4 L Magnesium 1.9 08/03/18 08/03/18 08/04/18 11:53 18:14 00:11 Sodium Potassium Chloride Carbon Dioxide Anion Gap BUN Creatinine Estimated GFR POC Glucose 189 H 232 H 223 H Random Glucose Calcium Phosphorus Magnesium 08/04/18 08/04/18 08/04/18 04:18 06:32 11:40 Sodium Potassium Chloride Carbon Dioxide Anion Gap BUN Creatinine Estimated GFR POC Glucose 149 H 145 H 236 H Random Glucose Calcium Phosphorus Magnesium Imaging: ITS Impressions Abdomen/Pelvis CT 07/30/18 17:13 CONCLUSION: 1. Small calculi are identified in the left renal collecting system and proximal ureter. There is mild hydronephrosis with perinephric stranding characteristic of obstructive uropathy. 2. Thick walled cyst off the lateral margin of mid left kidney. Cystic malignancy needs to be considered. 3. Uncomplicated colonic diverticulosis. 4. Fibrotic lung disease right lower lobe. 5. Status post hysterectomy and cholecystectomy. Abdomen/Bladder Ultrasound 07/30/18 18:40 CONCLUSION: 1. Mild left-sided hydronephrosis. Calyceal calculi noted on CT exam are not demonstrated on ultrasound. 2. 3.9 cm primarily hypoechoic exophytic cystic lesion arising from the mid left kidney. This corresponds to the thick walled cystic lesion on CT exam with adjacent stranding. There is no definite nodular component or evidence for vascularity. Differential considerations include hemorrhagic cyst versus secondarily infected cyst although cystic neoplasm is not entirely excluded by ultrasound. Multiphasic renal mass MRI or CT examination is recommended once patient's acute left-sided obstructive uropathy is resolved. Abdomen X-Ray 07/31/18 00:00 CONCLUSION: Left double pigtail ureteral stent catheter. Chest X-Ray 08/02/18 11:20 CONCLUSION: No significant change. Physical Exam: GENERAL: No acute distress. Alert and oriented. HEENT: Head atraumatic. Extraocular movements are grossly intact. Pupils reactive to light. No icterus. Oropharynx: Mucosa slightly dry. NECK: Supple without adenopathy or swelling. LUNGS: Clear, decreased breath sounds. HEART: Irregular rate and rhythm without murmurs, rubs or gallops. ABDOMEN: Bowel sounds present. Soft, no tenderness appreciated. EXTREMITIES: No clubbing, cyanosis or edema. SKIN: No rash. Cool and dry NEUROLOGIC: No gross focal findings. PSYCHIATRIC: Calm and cooperative. Peripheral line without evidence of infection. Assessment and Plan - Plan IMPRESSION: Compliacted UTI - S/P stent Klebsiella UTI Possible sepsis due to source Acute kidney disease, stage III. Fever and leukocytosis secondary to infection. RECOMMENDATIONS: Continue ceftriaxone. Repeat the urine culture to make sure it is cleared since the patient has urinary stent in place and a white blood cell count remain elevated. Monitor white blood cell count. Follow C/S If the urine culture is negative, we can complete antibiotic treatment with p.o. antibiotics to complete 10 days.
[2018-08-04] MEDS ORDERED: Metoprolol Tartrate 50 MG Tablet PO SCH (21:00)
--- NOTE | 2018-08-06 20:26 | XR ---
EXAM DATE: 08/06/2018 6:05 PM EST AGE/SEX: 83 years / Female INDICATIONS: Mid back pain with no known injury. CLINICAL DATA: This is the patient's initial encounter. Patient reports that signs and symptoms have been present for 2 days and indicates a pain score of 1/10. MEDICAL/SURGICAL HISTORY: None. None. COMPARISON: No prior exams available for comparison. FINDINGS: Lateral view of the thoracic spine reveals moderate to severe degenerative disc disease. No compressi on deformities identified on the lateral. CONCLUSION: Moderate to severe degenerative disc disease. No definite compression deformity identified. Electronically signed by: Adria Vasquez MD Board Certified Radiologist 08/06/2018 6:19 PM EST
--- NOTE | 2018-08-06 20:26 | XR ---
EXAM DATE: 08/06/2018 6:05 PM EST AGE/SEX: 83 years / Female INDICATIONS: Lower back pain with no known injury. CLINICAL DATA: This is the patient's initial encounter. Patient reports that signs and symptoms have been present for 2 days and indicates a pain score of 2/10. MEDICAL/SURGICAL HISTORY: None. None. COMPARISON: [facility], XR SPINE LUMBAR (MIN 4 VIEWS), 02/22/2016. . FINDINGS: Advanced degenerative disc disease with moderate rotatory levoscoliosis in the lumbar spine. Left ure teral stent present. Advanced facet arthropathy. No acute fracture identified. No significant change from 2016. CONCLUSION: Advanced degenerative disc disease with levoscoliosis similar in appearance to 2016. Left ureteral st ent. Electronically signed by: Adria Vasquez MD Board Certified Radiologist 08/06/2018 6:20 PM EST
== END 2018-08-04 16:09 | DRG 854 ==
LOC: PHED 14:01 → PHEDA 18:57 → N05 22:00 → HIMC 08-01 08:05 → N04 08-04 00:55
PROVIDERS: ADMIT Hospitalist; ATTEND Hospitalist
DX: Z87.442 Personal history of urinary calculi; E78.00 Pure hypercholesterolemia, unspecified; E87.8 Other disorders of electrolyte and fluid balance, not elsewhere classified; N20.1 Calculus of ureter; E87.6 Hypokalemia; E78.5 Hyperlipidemia, unspecified; J90 Pleural effusion, not elsewhere classified; Z96.653 Presence of artificial knee joint, bilateral; D69.59 Other secondary thrombocytopenia; J81.1 Chronic pulmonary edema; N99.3 Prolapse of vaginal vault after hysterectomy; N13.6 Pyonephrosis; E11.65 Type 2 diabetes mellitus with hyperglycemia; Z79.84 Long term (current) use of oral hypoglycemic drugs; I10 Essential (primary) hypertension; I48.1 Persistent atrial fibrillation; R00.0 Tachycardia, unspecified; E87.2 Acidosis; A41.59 Other Gram-negative sepsis; B96.1 Klebsiella pneumoniae [K. pneumoniae] as the cause of diseases classified elsewhere; N17.9 Acute kidney failure, unspecified; R65.20 Severe sepsis without septic shock
CPT/HCPCS: 36600; 71010; 71045; 74000; 74018; 74176; 76000; 76775; 80048; 80053; 80162; 81001; 82805; 82948; 82962; 83605; 83690; 83735; 84100; 84132; 84443; 85025; 87040; 87077; 87081; 87086; 87186; 87275; 87276; 87449; 87641; 87804; 87880; 93005; 93306; 94150; 97110; 97116; 97162; C1769; C2617; J0696; J1160; J1580; J1644; J1815; J3475; J3480; J7030; J7120